=== PATIENT | female | born 1955 | race Caucasian/White ===

== ENCOUNTER 2017-02-04 19:12 | Inpatient (IN) ==
[2017-02-04 19:48] LABS: Basophils % 0.3 % (0.0-0.8); Hematocrit 33.9 VOL% (35.7-47.0); Hemoglobin 10.8 GM/DL (12.0-16.0); Immature Granulocytes % 0.4 %; Immature Granulocytes Absolute 0.05 #; Lymphocytes # 1.4 10*3/uL (1.4-4.0); Lymphocytes % 11.5 % (21.3-54.2); Mean Corpuscular HGB Conc 31.9 GM/DL (32-36); Mean Corpuscular Hemoglobin 29 PG (27-34); Mean Corpuscular Volume 89.7 FL (87-102); Mean Platelet Volume 10.2 FL (9.6-12.0); Monocytes # 0.7 10*3/uL (0.11-0.8); Monocytes % 5.3 % (1.7-12.7); Neutrophils # 10.1 10*3/uL (1.4-7.4); Neutrophils % 82.5 % (38.7-73.9); Platelet Count 185 T/CUMM (130-400); Red Blood Count 3.78 MC/CUMM (3.8-5.5); Red Cell Distribution Width 14.6 % (9.3-17.3); White Blood Count 12.3 T/CUMM (4-12)
[2017-02-04 19:56] LABS: Apearance,Urine CLOUDY (Clear); Bacteria,Urine Occasional /HPF (Few); Bilirubin,Urine Negative (Negative); Blood, Urine Small mg/dL (Negative); Glucose,Urine (UA) Negative (Negative); Ketones,Urine Negative (Negative); Nitrite,Urine Negative (Negative); Protein,Urine 100 MG/DL; RBC,Urine 2 /HPF (0-4); Squamous Epithelial Cell,Urine Occasional /HPF (0-10); Urine Color Yellow (Yellow); Urine Specific Gravity 1.014 (1.001-1.035); WBC,Urine 22 /HPF (0-6)
[2017-02-04 20:12] LABS: Albumin 3.3 G/DL (3.4-5.0); Bilirubin,Total 0.5 MG/DL (0.2-1.0); Calcium 7.8 MG/DL (8.5-10.1); Potassium 4.5 MMOL/L (3.5-5.1); Total Protein 7.8 G/DL (6.4-8.3)
[2017-02-04] MEDS ORDERED: PIPERACILLIN/TAZOBACTAM 3,375 MG in SODIUM CHLORIDE 0.9% 100 ML IV STA (20:21)
[2017-02-04] MEDS ORDERED: CEFTAROLINE 600 MG in SODIUM CHLORIDE 0.9% 100 ML IV STA (20:26)
[2017-02-04] MEDS ORDERED: VANCOMYCIN (NICU) 1,000 MG in SYRINGE 1 EACH IV SCH (20:30)
--- NOTE | 2017-02-04 20:38 | XRay Report ---
XR chest 1V portable Indication: Shortness of breath and fever. Chest one view: Comparison 11/10/2016. Although pulmonary markings are accentuated by morbid obesity, there is pulmonary vascular congestion centrally with diffuse interstitial prominence throughout. No focal infiltrate is definitively seen. Cardiomegaly is present. Impression: CHF decompensation. PROCEDURE INTERPRETED AT [facility] DEPARTMENT OF RADIOLOGY Final Report Signed by: Omkar Hardin M.D.
--- NOTE | 2017-02-04 20:38 | XRay Report ---
XR abdomen complete w decub Indication: Abdominal pain and fever. Abdomen 3 views: Morbid obesity noted. No small bowel dilatation. Gas is present throughout colon with some scattered areas of stool, not dilated. No evidence of free air. Impression: Unremarkable bowel gas pattern. PROCEDURE INTERPRETED AT [facility] DEPARTMENT OF RADIOLOGY Final Report Signed by: Omkar Hardin M.D.
[2017-02-04] MEDS ORDERED: CEFTAROLINE 600 MG VIAL IV ONE (20:51)
[2017-02-04] MEDS ORDERED: ONDANSETRON 4 MG/2 ML VIAL IV PRN (20:59)
[2017-02-04] MEDS ORDERED: ACETAMINOPHEN 325 MG TABLET PO PRN (20:59)
[2017-02-04 21:01] LABS: Troponin I Only < 0.015 NG/ML (0.00-0.045)
--- NOTE | 2017-02-04 21:02 | Emergency Department Note ---
I, Nancy Schmitz, am scribing for, and in the presence of, Juwan Andrews MD 20:07. IJuliana Robert, MD, personally performed the services described in this documentation, ascribed by Nancy Schmitz in my presence, and it is both accurate and complete . Arrival - Arrival Chief Complaint: Urogenital - Female Stated Complaint: chills, uti ED Nursing Triage Note: pt started having chills last night then got hot, states that she thinks she has a uti, denies urinary problems, states that she pees a lot and often, denies burning. Mode of Arrival: Stretcher Source: Patient, Family (daughter) Time Seen by Provider: 02/04/17 19:39 - History of Present Illness HPI Narrative: Pt is a 61 y/o female who came to ED by EMS with c/o generalized weakness with hot and cold chills and fever and upper abdomen pain that started Thursday night. Pt has associated sxs of WALTERS, sore throat, mild earaches, frequency, urgency, loose stool considered diarrhea, and rhinorrhea, but denies SOB, dysuria, hematuria. Her fever in ED is 101. Pt uses walker to get around. Daughter notes cellulitis flare up again in bilateral lower extremities with weeping wounds due to pt non compliant with regime. PMHx of DM, lymphedema, kidney issues in Stage IV renal failure, under supervision of Dr. Davis but resolved 2 months ago and no dialysis; chronic edema to bilateral legs with weeping wounds under supervision of Dr. Jackson. Pt's PCP is Dr. Haque. Pt's BP is usually nml 130/80, but in ED is 139/40. Onset (ago): day(s) Consistency: constant Severity: moderate Severity scale (1-10): 5 Quality: aching Allergies/Adverse Reactions: Allergies Allergy/AdvReac Type Severity Reaction Status Date / Time No Known Allergies Allergy Unverified 02/04/17 19:14 Home Medications: Home Medications Medication Instructions Recorded Confirmed Type FLUoxetine [PROzac] 40 mg PO DAILY 06/12/16 10/27/16 History Tolterodine Tartrate [Tolterodine 4 mg PO DAILY 06/12/16 10/27/16 History LA] Skin Healing Oint (Aquaphor) 1 applic TOP PRN PRN #0 ointment 11/07/16 03/13/17 Rx [Aquaphor] Acetaminophen Tab [Tylenol Tab] 650 mg PO Q4H PRN #0 tablet 11/12/16 Rx Gabapentin Cap/Tab [Neurontin 200 mg PO DAILY #30 capsule 11/12/16 Rx Cap/Tab] HYDROcodone/ACETAMIN 5-325 [[place] 1 tablet PO Q4H PRN #20 tablet 11/12/16 Rx 5-325] Insulin Regular [HumuLIN R] See Protocol SUBCUT ACHS unit 11/12/16 Rx Levofloxacin Tab [Levaquin Tab] 500 mg PO Q48H #7 tablet 11/12/16 Rx Silver Sulfadiazine 1% Cream 1 applic TOP DAILY applic 11/12/16 Rx [Silvadene] Sodium Hypochlorite 0.25% Irr 1 applic TOP DAILY applic 11/12/16 Rx [Dakins 1/2 Strength 0.25% Soln] glipiZIDE [Glucotrol] 5 mg PO DAILY #0 11/12/16 10/27/16 Rx Review of System - Review of System 12 point system: reviewed and no additional remarkable complaints except as stated - Review of System Constitutional: Present: chills (hot and cold), fever Head/Ears/Nose/Throat: Present: nasal drainage. Absent: earache, sore throat Respiratory: Absent: cough, respiratory distress Cardiovascular: Absent: chest pain Gastrointestinal: Present: diarrhea (mild; soft). Absent: abdominal pain, nausea, vomiting Genitourinary female: Present: frequency, urgency. Absent: dysuria, hematuria Musculoskeletal: Present: leg pain (chronic bilateral swelling and weeping wounds). Absent: back pain, lower back pain, upper back pain Skin: Absent: rash Neurological: Present: headache Medical,Surgical,& Family Hx - Medical History Cardio: History of: CHF, CAD, Hypertension, PVD, Cardiovascular Problems ( lymphadema) No history of: [place] Psychological: History of: Anxiety Disorders No history of: Previous Suicide Attempt HEENT: Comment Only: Eye Problem (wears glasses) Endocrine: History of: Diabetes Mellitus (NIDDM), Dyslipidemia No history of: Diabetes Mellitus (IDDM) Respiratory: History of: Bronchitis, COPD, Pulmonary Hypertension, Pneumonia Genitourinary: History of: Recurring Urinary Tract Infections Hematology: History of: Anemia - Surgical History Reproductive Surgeries: Surgical HX of;: Section - Family History Family History: Reports;: Family Cancer, Family Diabetes, Family Heart Disease, Family Hypertension, Family Stroke - Social History Smoking Status: Never smoker Frequency of Alcohol Use: None Type of Drug Use: None Marital Status: Single Functional capacity: independent ambulation Exam Vital Signs: Vital Signs Temperature 101 F H 02/04/17 19:12 Pulse Rate 62 02/04/17 19:12 Respiratory Rate 22 02/04/17 19:12 Blood Pressure 113/40 02/04/17 19:12 O2 Sat by Pulse Oximetry 98 02/04/17 19:12 - General General appearance: alert, in no apparent distress, obese (morbidly) - Head Head exam: Present: atraumatic, normocephalic - Eye Eye exam: Present: PERRL, EOMI - ENT ENT exam: Present: normal exam, normal oropharynx (mild drainage), mucous membranes moist, TM's normal bilaterally, normal external ear exam. Absent: mucous membranes dry - Neck Neck exam: Present: full ROM. Absent: tenderness - Chest Chest inspection: Present: symmetric chest wall rise. Absent: tenderness - Respiratory Respiratory exam: Present: normal lung sounds bilaterally. Absent: accessory muscle use, respiratory distress, wheezes - Cardiovascular Cardiovascular exam: Present: normal heart sounds, murmur, +S2. Absent: tachycardia - Abdominal Exam Abdominal exam: Present: soft, tenderness (mild diffusely). Absent: distention , guarding, rebound - Extremities Exam Extremities exam: Present: tenderness (lymphedema bilaterally with erythema induration of two 5cm decubitus; superficial thickness on right ankle with sluffiness of skin on medial aspect to right calf). Absent: full ROM (Limited ROM due to weight and edema) - Back Exam Back exam: Present: full ROM. Absent: tenderness - Neurological Exam Neurological exam: Present: alert, oriented X3, CN II-XII intact. Absent: motor sensory deficit - Psychiatric Psychiatric exam: Present: normal affect, normal mood - Skin Skin exam: Present: warm Course Course Narrative: Medical decision making: Patient with SIRS criteria plus source of infection with positive UA, and likely cellulitis bilateral extremities, with history of urosepsis. Discussed case with Dr. Morocho of internal medicine who ordered antibiotics, fluids started. Dr. Morocho is coming to ER for evaluation - Reevaluation(s) Reevaluation #1: Dr. Morocho decided to admit patient for IV antibiotics and monitoring Results - Labs CBC & BMP: 02/04/17 19:37 02/04/17 19:37 Lab Results: I have reviewed the patients labs Labs: Laboratory Tests 02/04/17 02/04/17 19:32 19:37 WBC 12.3 H RBC 3.78 L Hgb 10.8 L Hct 33.9 L MCHC 31.9 L Neut % (Auto) 82.5 H Lymph % (Auto) 11.5 L Neut # (Auto) 10.1 H Urine Color Yellow Urine Appearance Cloudy Urine pH 5.0 Ur Specific [place] 1.014 Urine Protein 100 Urine Blood Small Urine Urobilinogen 2.0 H Urine Leukocytes Moderate H Urine RBC 2 Urine WBC 22 Urine WBC Clumps Few Ur Squamous Epith Cells Occasional Urine Bacteria Occasional Laboratory Tests 02/04/17 19:37 VBG pH 7.344 Laboratory Tests 02/04/17 19:37 BUN 29 H Creatinine 1.70 H Glucose 111 H Calcium 7.8 L ALT 10 L Albumin 3.3 L Globulin 4.5 H Albumin/Globulin Ratio 0.7 L Laboratory Tests 02/04/17 19:37 Lactic Acid 2.2 H - Diagnostic Findings Procedure: Chest x-ray: report reviewed by me (CHF decompensation.), X-ray: report reviewed by me (abdomen complete with decub: unremarkable bowel gas pattern.) Disposition Clinical Impression: Sepsis associated hypotension, Cellulitis, Decubitus skin ulcer Case discussed with: patient, patient's family, patient's physician Disposition: Still a Patient Condition: Critical Time of Disposition: 20:30
[2017-02-04] MEDS ORDERED: DEXTROSE 50% 25 GM/50 ML VIAL IV PRN (21:08)
[2017-02-04] MEDS ORDERED: GLUCAGON 1 MG VIAL IM PRN (21:08)
[2017-02-04] MEDS ORDERED: FUROSEMIDE 40 MG/4 ML VIAL IV ONE (21:09)
--- NOTE | 2017-02-04 21:13 | Hospitalist History & Physical ---
Assessment and Plan (1) Sepsis Status: Acute Current Visit: Yes (2) UTI (urinary tract infection) Status: Acute Current Visit: Yes (3) Diabetes Status: Chronic Current Visit: No Qualifiers: Diabetes mellitus type: type 2 Chronic kidney disease stage: stage 5, not on chronic dialysis (4) Hypertension Status: Chronic Current Visit: No (5) Lymphedema of both lower extremities Status: Chronic Current Visit: No (6) Morbid obesity Status: Chronic Current Visit: No (7) Non-healing wound of lower extremity Status: Chronic Current Visit: No (8) Type 2 diabetes mellitus Status: Chronic Assessment and plan: Our plan for this patient admitted is to admit her to our service. 40 started on Teflaro which is good broad coverage antibiotics for her skin. Going to culture her urine. By definition she does meet the requirements for severe sepsis. She has a 12.3 white count lactic acid level of 2.3 and a fever of 101. We are going to repeat the lack acid. Patient cannot be given a fluid bolus secondary to cardiac decompensation on chest x-ray. Going to give her some Lasix. Per family's request we are consulting Dr. Fernandes. He has great experience with the lymphedema AND her normal doctor which Dr. Renetta Parmar does not come to our facility. Continue home meds as appropriate once they are confirmed Current Visit: No Qualifiers: Diabetes mellitus complication status: with skin complications Diabetes mellitus complication detail: with other skin complication Diabetes mellitus moth exterminator insulin use: without moth exterminator use Qualified Code(s): E11.628 - Type 2 diabetes mellitus with other skin complications History of Present Illness Chief complaint: Fever History of present illness: Ms. Dwyer is a 61 year old female with past medical history of lymphedema chronic kidney disease diabetes and chronic lower extremity wounds who presents to our ER [facility]. Patient's been admitted several times in the past and she has been on our service several times. Patient's daughter reports that she started spiking a fever 2 days ago. Patient says that she was freezing at the time. Seem like the redness to return to her lower extremities. Patient has chronic lymphedema and according to the daughter patient usually is admitted to the hospital about every 3 months. I was contacted from the emergency room for admission. Home Medications Medication Instructions Recorded Confirmed Type FLUoxetine [PROzac] 40 mg PO DAILY 06/12/16 10/27/16 History Tolterodine Tartrate [Tolterodine 4 mg PO DAILY 06/12/16 10/27/16 History LA] Skin Healing Oint (Aquaphor) 1 applic TOP PRN PRN #0 ointment 06/23/16 10/27/16 Rx [Aquaphor] Acetaminophen Tab [Tylenol Tab] 650 mg PO Q4H PRN #0 tablet 11/12/16 Rx Gabapentin Cap/Tab [Neurontin 200 mg PO DAILY #30 capsule 11/12/16 Rx Cap/Tab] HYDROcodone/ACETAMIN 5-325 [[place] 1 tablet PO Q4H PRN #20 tablet 11/12/16 Rx 5-325] Insulin Regular [HumuLIN R] See Protocol SUBCUT ACHS unit 11/12/16 Rx Levofloxacin Tab [Levaquin Tab] 500 mg PO Q48H #7 tablet 11/12/16 Rx Silver Sulfadiazine 1% Cream 1 applic TOP DAILY applic 11/12/16 Rx [Silvadene] Sodium Hypochlorite 0.25% Irr 1 applic TOP DAILY applic 11/12/16 Rx [Dakins 1/2 Strength 0.25% Soln] glipiZIDE [Glucotrol] 5 mg PO DAILY #0 11/12/16 10/27/16 Rx Allergies Allergy/AdvReac Type Severity Reaction Status Date / Time No Known Allergies Allergy Unverified 02/04/17 19:14 Medical,Surgical,& Family Hx - Medical History Cardio: History of: CHF, CAD, Hypertension, PVD, Cardiovascular Problems ( lymphadema) No history of: [place] Psychological: History of: Anxiety Disorders No history of: Previous Suicide Attempt HEENT: Comment Only: Eye Problem (wears glasses) Endocrine: History of: Diabetes Mellitus (NIDDM), Dyslipidemia No history of: Diabetes Mellitus (IDDM) Respiratory: History of: Bronchitis, COPD, Pulmonary Hypertension, Pneumonia Genitourinary: History of: Recurring Urinary Tract Infections Hematology: History of: Anemia - Surgical History Reproductive Surgeries: Surgical HX of;: Section - Family History Family History: Reports;: Family Cancer, Family Diabetes, Family Heart Disease, Family Hypertension, Family Stroke - Social History Smoking Status: Never smoker Frequency of Alcohol Use: None Type of Drug Use: None 12 point system: reviewed and no additional remarkable complaints except as stated Exam - Constitutional Vitals: Period Temp Pulse Resp BP Sys/Miller Pulse Ox Last 24 Hr 101 F-101 F 62-62 22-22 113-113/40-40 98 General appearance: no acute distress, morbidly obese - Head Head exam: Present: normal inspection - Eye Eye exam: Present: EOMI Pupils: Present: KATIANA - ENT ENT exam: Present: normal exam - Neck Neck exam: Present: normal inspection - Respiratory Respiratory exam: Present: clear to auscultation bilaterally - Cardiovascular Cardiovascular exam: Present: regular rate and rhythm - GI/Abdominal GI/Abdominal exam: Present: normal bowel sounds, tenderness (Mild) - Extremities Exam Extremities exam: Present: other (Significant lymphedema in lower extremities. She has erythema and duration. There are 2 decubiti noted.) - Psychiatric Psychiatric exam: Present: depressed - Skin Skin exam: Present: erythema Results - Labs CBC & BMP: 02/04/17 19:37 02/04/17 19:37 Quality Measures - Stroke Onset of Symptoms Date: 02/03/17
[2017-02-04] MEDS: ENOXAPARIN 40 MG/0.4 ML SYRINGE SUBCUT SCH (23:28)
[2017-02-05 06:27] LABS: Basophils % 0.3 % (0.0-0.8); Hematocrit 29.3 VOL% (35.7-47.0); Hemoglobin 9.3 GM/DL (12.0-16.0); Immature Granulocytes % 0.5 %; Immature Granulocytes Absolute 0.05 #; Lymphocytes # 1.4 10*3/uL (1.4-4.0); Lymphocytes % 14.8 % (21.3-54.2); Mean Corpuscular HGB Conc 31.7 GM/DL (32-36); Mean Corpuscular Hemoglobin 28 PG (27-34); Mean Corpuscular Volume 88.3 FL (87-102); Mean Platelet Volume 10.6 FL (9.6-12.0); Monocytes # 0.5 10*3/uL (0.11-0.8); Monocytes % 5.3 % (1.7-12.7); Neutrophils # 7.5 10*3/uL (1.4-7.4); Neutrophils % 79.1 % (38.7-73.9); Platelet Count 156 T/CUMM (130-400); Red Blood Count 3.32 MC/CUMM (3.8-5.5); Red Cell Distribution Width 14.8 % (9.3-17.3); White Blood Count 9.5 T/CUMM (4-12)
[2017-02-05 07:04] LABS: Calcium 7.5 MG/DL (8.5-10.1); Osmolality,Calculated 282.7 MOS/KG (273-304)
[2017-02-05] MEDS: PANTOPRAZOLE 40 MG TABLET PO SCH (09:09)
[2017-02-05] MEDS: FUROSEMIDE 40 MG/4 ML VIAL IV SCH ×2 (09:09→16:23)
[2017-02-05] MEDS: CEFTAROLINE 600 MG in SODIUM CHLORIDE 0.9% 100 ML IV SCH ×2 (09:09→21:09)
[2017-02-05] MEDS: INSULIN REGULAR 100 UNIT/ML SUBCUT SCH ×4 (10:11→21:09)
--- NOTE | 2017-02-05 11:20 | Physician Query Form ---
CLICK EDIT DOCUMENT TO SELECT QUERY ANSWER --> OK --> SIGN Akua Ng RN Clinical [employer] Sprink[employer] Installer W) [phone] (f) [phone] [email or web address] PROVIDERS: Make your selection(s) from the choices in EACH section by typing an "x" and enter comments in the comment section. Please use your independent medical judgment in providing your response. This request does not imply that any particular answer is desired or expected. CLINICAL INDICATORS: (Providers should not edit this section) Based on documentation of "history of CHF", [id number], Echo done 07/31/16 showed EF of 50-55%. CXR showed CHF decompensation. Pt. treated with IV Lasix. Please provide further specificity regarding CHF. ACUITY: ( ) Acute ( ) Chronic ( x) Acute on Chronic ( ) Clinicallly unable to determine TYPE: ( ) Systolic (HFrEF - heart failure with reduced systolic function/EF) ( x) Diastolic (HFpEF - heart failure with preserved systolic function/EF) ( ) Combined Systolic/Diastolic ( ) Other, please specify: ( ) Clinically unable to determine ( ) The patient does NOT have CHF COMMENTS: PLEASE ALSO DOCUMENT RESPONSE IN PROGRESS NOTES AND/OR DISCHARGE SUMMARY Use of terms such as suspected, likely, or probable (associated with a specific diagnosis that is being evaluated, monitored, or treated as if it exists) are acceptable and can be restated in the discharge summary if not ruled out. MTDD
--- NOTE | 2017-02-05 11:33 | General Surgery Consult Note ---
Assessment and Plan (1) Decubitus skin ulcer Status: Acute Assessment and plan: Patient with bilateral pressure ulcers from where the daughter reports the patient props her legs when sitting in a chair at home. There was exudative soft which was debrided with a curette at bedside left lower leg 8 x 6 cm; right lower leg 6.4 cm. Patient tolerated well. The patient is on IV antibiotics with which we are in agreement with the associated cellulitis. Moisture control and removal of pressure needs to be achieved especially of the left lower extremity to prevent further breakdown this was reviewed with the wound care nurse. Apparently, the patient has many resources at home including hospital bed , active family, and home health services. At this time there are no indications for formal surgical debridement. Continue local wound care. Will follow along. Current Visit: Yes Qualifiers: Pressure ulcer location: calf Pressure ulcer stage: stage 2 (2) Cellulitis of left lower extremity Status: Acute Current Visit: No History of Present Illness Chief complaint: Bilateral leg wounds History of present illness: Ms. Dwyer is a 61 year old female with past medical history of diabetes mellitus , peripheral vascular disease, and lymphedema with nonhealing wounds with multiple debridements who presents back to the facility with reports of spiking a temperature 2 days. The patient assisted care of the patient and report they have continue to follow with Dr. Jackson in the wound care clinic with home health services. The daughter performs the daily wound care. There is some mild increase in surrounding erythema but no significant drainage from the wounds. There are 2 large wounds on the posterior lateral lower legs with satellite lesions noted of the left lower leg. Patient is currently being treated with Teflaro; evidence of urinary tract infection also present on UA with gram-negative rods and Gram stain and preliminary culture. Home Medications Medication Instructions Recorded Confirmed Type FLUoxetine [PROzac] 40 mg PO DAILY 06/12/16 02/04/17 History Tolterodine Tartrate [Tolterodine 4 mg PO DAILY 06/12/16 02/04/17 History LA] HYDROcodone/ACETAMIN 5-325 [[place] 1 tablet PO Q4H PRN #20 tablet 11/12/16 Rx 5-325] Allopurinol 2 tablet PO DAILY 02/04/17 02/04/17 History Furosemide Tab [Lasix Tab] 1 tablet PO BID 02/04/17 02/04/17 History Gabapentin Cap/Tab [Neurontin 600 mg PO DAILY 02/04/17 02/04/17 History Cap/Tab] Levothyroxine Tab [Synthroid Tab] 1 tablet PO DAILY 02/04/17 02/04/17 History Pravastatin [Pravachol] 10 mg PO DAILY 02/04/17 02/04/17 History glipiZIDE [Glucotrol] 5 mg PO BID 02/04/17 02/04/17 History Allergies Allergy/AdvReac Type Severity Reaction Status Date / Time No Known Allergies Allergy Unverified 02/04/17 19:14 Medical,Surgical,& Family Hx - Medical History Cardio: History of: CHF, CAD, Hypertension, PVD, Cardiovascular Problems ( lymphadema) Psychological: History of: Anxiety Disorders HEENT: Comment Only: Eye Problem (wears glasses) Endocrine: History of: Diabetes Mellitus (NIDDM), Dyslipidemia Respiratory: History of: Bronchitis, COPD, Pulmonary Hypertension, Pneumonia Renal: History of: Renal Problems Genitourinary: History of: Recurring Urinary Tract Infections Hematology: History of: Anemia - Surgical History Reproductive Surgeries: Surgical HX of;: Section Additional Surgical History: Multiple debridements of bilateral lower legs - Family History Family History: Reports;: Family Cancer, Family Diabetes, Family Heart Disease, Family Hypertension, Family Stroke - Social History Smoking Status: Never smoker Frequency of Alcohol Use: None Type of Drug Use: None Lives With:: Children - Constitutional Constitutional: Present: as per HPI - Cardiovascular Cardiovascular: Absent: chest pain at rest, chest pain with activity - Respiratory Respiratory: Absent: cough, wheezing - Gastrointestinal Gastrointestinal: Absent: abdominal pain, nausea, vomiting - Musculoskeletal Musculoskeletal: Absent: arthralgias Exam - Constitutional Vitals: Period Temp Pulse Resp BP Sys/Miller Pulse Ox Last 24 Hr 97 F-102.2 F 62-80 18-22 113-124/40-60 92-98 General appearance: no acute distress, morbidly obese - Head Head exam: Present: normocephalic - Eye Eye exam: Absent: conjunctival injection, scleral icterus - Extremities Exam Extremities exam: Present: other (Severe lymphedema bilateral lower extremities. Left lower extremity with a wound of the posterior lateral leg approximately 8 cm x 5 cm with exudative slough present edges are clean. Mild surrounding erythema and denuding of tissue with evidence of maceration. 2 small satellite lesions approximately 1 cm in diameter with the healthy tissue bed present lower leg as well. The right lower extremity has a similar lesion approximately 6 cm x 4 cm with exudate; edges are clean without necrosis. No areas of induration or fluctuance are noted. There is surrounding erythema of the lower leg.) Quality Measures - Stroke Onset of Symptoms Date: 02/03/17 Results - Labs CBC & BMP: 02/05/17 05:38 02/05/17 05:38
--- NOTE | 2017-02-05 16:14 | Hospitalist Progress Note ---
Assessment and Plan (1) Sepsis Status: Resolved Assessment and plan: Secondary to UTI Current Visit: Yes (2) UTI (urinary tract infection) Status: Acute Assessment and plan: Continue Teflaro Current Visit: Yes (3) Cellulitis Status: Acute Assessment and plan: Continue Teflaro Current Visit: Yes (4) Decubitus skin ulcer Status: Acute Assessment and plan: Surgery evaluated, no surgical indications Current Visit: Yes Qualifiers: Pressure ulcer location: calf Pressure ulcer stage: stage 2 Hospitalist: Subjective Interval history: No acute events overnight. Patient reports that she feels better today. Denies abdominal pain, cough or sob. Exam - Constitutional Vitals: Period Temp Pulse Resp BP Sys/Miller Pulse Ox Last 24 Hr 97 F-102.2 F 62-80 18-22 113-142/40-65 92-98 General appearance: morbidly obese - Head Head exam: Present: normocephalic, atraumatic - Eye Eye exam: Present: EOMI Pupils: Present: KATIANA - ENT ENT exam: Present: normal exam - Neck Neck exam: Present: normal inspection - Respiratory Respiratory exam: Present: clear to auscultation bilaterally. Absent: wheezes - Cardiovascular Cardiovascular exam: Present: regular rate and rhythm - GI/Abdominal GI/Abdominal exam: Present: normal bowel sounds, soft. Absent: tenderness, rebound - Extremities Exam Extremities exam: Present: edema - Back Exam Back exam: Present: normal inspection - Neurological Exam Neurological exam: Present: alert, oriented X3 - Psychiatric Psychiatric exam: Present: normal affect, normal mood - Skin Skin exam: Present: warm, intact Results - Labs CBC & BMP: 02/05/17 05:38 02/05/17 05:38 Quality Measures - Stroke Onset of Symptoms Date: 02/03/17
[2017-02-05] MEDS: FLUoxetine 20 MG CAPSULE PO SCH (16:27)
[2017-02-05] MEDS: COLLAGENASE OINT 30 GM TUBE TOP SCH (16:31)
[2017-02-05] MEDS: DESITIN 4OZ/NYSTATIN 15 GRAM MIXTURE PASTE TOP SCH (21:09)
[2017-02-05] MEDS: ENOXAPARIN 40 MG/0.4 ML SYRINGE SUBCUT SCH (21:10)
[2017-02-06 05:30] LABS: Basophils % 0.4 % (0.0-0.8); Hematocrit 29.3 VOL% (35.7-47.0); Hemoglobin 9.5 GM/DL (12.0-16.0); Immature Granulocytes % 0.2 %; Immature Granulocytes Absolute 0.02 #; Lymphocytes # 1.3 10*3/uL (1.4-4.0); Lymphocytes % 16.5 % (21.3-54.2); Mean Corpuscular HGB Conc 32.4 GM/DL (32-36); Mean Corpuscular Hemoglobin 29 PG (27-34); Mean Corpuscular Volume 88.8 FL (87-102); Mean Platelet Volume 10.9 FL (9.6-12.0); Monocytes # 0.5 10*3/uL (0.11-0.8); Monocytes % 6.7 % (1.7-12.7); Neutrophils # 6.2 10*3/uL (1.4-7.4); Neutrophils % 76.2 % (38.7-73.9); Platelet Count 163 T/CUMM (130-400); Red Cell Distribution Width 14.6 % (9.3-17.3); White Blood Count 8.1 T/CUMM (4-12)
[2017-02-06 05:59] LABS: Calcium 8.3 MG/DL (8.5-10.1); Osmolality,Calculated 282.7 MOS/KG (273-304); Potassium 4.1 MMOL/L (3.5-5.1)
--- NOTE | 2017-02-06 07:25 | General Surgery Progress Note ---
Assessment and Plan (1) Decubitus skin ulcer Status: Acute Assessment and plan: These ulcers are clean and did not require surgical attention. Please call back with any further questions and continue current wound care Current Visit: Yes Qualifiers: Pressure ulcer location: calf Pressure ulcer stage: stage 2 Subjective Patient reports: Present: no new complaints, afebrile Exam - Constitutional Vitals: Period Temp Pulse Resp BP Sys/Miller Pulse Ox Last 24 Hr 97.5 F-99.5 F 67-74 18-20 105-142/50-65 92-98 General appearance: no acute distress, morbidly obese - Head Head exam: Present: normal inspection, normocephalic - Eye Eye exam: Present: EOMI Pupils: Present: KATIANA - ENT ENT exam: Present: normal exam Mouth exam: Present: normal external inspection, normal voice - Neck Neck exam: Present: normal inspection, trachea midline - Respiratory Respiratory exam: Present: clear to auscultation bilaterally. Absent: accessory muscle use, chest wall tenderness - Cardiovascular Cardiovascular exam: Present: RRR. Absent: systolic murmur, tachycardia - GI/Abdominal GI/Abdominal exam: Present: normal bowel sounds, soft. Absent: tenderness, rebound - Extremities Exam Extremities exam: Present: other - Expanded Lower extremity ulcers are clean Forearm wrist exam: Present: tenderness - Back Exam Back exam: Present: normal inspection - Neurological Exam Neurological exam: Present: alert, oriented X3 Speech: Present: normal - Skin Skin exam: Present: normal color, warm Results - Labs CBC & BMP: 02/06/17 04:45 02/06/17 04:45 Quality Measures - Stroke Onset of Symptoms Date: 02/03/17
[2017-02-06] MEDS: PANTOPRAZOLE 40 MG TABLET PO SCH (08:17)
[2017-02-06] MEDS: ALLOPURINOL 100 MG TABLET PO SCH (08:17)
[2017-02-06] MEDS: FLUoxetine 20 MG CAPSULE PO SCH (08:17)
[2017-02-06] MEDS: PRAVASTATIN 20 MG TABLET PO SCH (08:17)
[2017-02-06] MEDS: GABAPENTIN 600 MG TABLET PO SCH (08:18)
[2017-02-06] MEDS: FUROSEMIDE 40 MG/4 ML VIAL IV SCH ×2 (08:18→16:51)
[2017-02-06] MEDS: LEVOTHYROXINE 75 MCG TABLET PO SCH (08:18)
[2017-02-06] MEDS: CEFTAROLINE 400 MG in SODIUM CHLORIDE 0.9% 100 ML IV SCH ×2 (08:23→20:31)
[2017-02-06] MEDS: INSULIN REGULAR 100 UNIT/ML SUBCUT SCH ×4 (08:23→20:30)
[2017-02-06] MEDS: DESITIN 4OZ/NYSTATIN 15 GRAM MIXTURE PASTE TOP SCH ×2 (08:23→20:31)
[2017-02-06] MEDS: COLLAGENASE OINT 30 GM TUBE TOP SCH (08:23)
--- NOTE | 2017-02-06 15:37 | Hospitalist Progress Note ---
Assessment and Plan (1) Sepsis Status: Resolved Assessment and plan: Secondary to UTI Current Visit: Yes (2) UTI (urinary tract infection) Status: Acute Assessment and plan: Started Teflaro, continue today Current Visit: Yes (3) Cellulitis Status: Acute Assessment and plan: Continue Teflaro Current Visit: Yes (4) Decubitus skin ulcer Status: Acute Assessment and plan: Surgery evaluated, no surgical indications Current Visit: Yes Qualifiers: Pressure ulcer location: calf Pressure ulcer stage: stage 2 Hospitalist: Subjective Interval history: No acute events overnight. Patient feeling better. Possible discharge soon. Exam - Constitutional Vitals: Period Temp Pulse Resp BP Sys/Miller Pulse Ox Last 24 Hr 97.3 F-99.4 F 68-74 18-20 105-142/50-71 92-98 General appearance: morbidly obese - Head Head exam: Present: normocephalic, atraumatic - Eye Eye exam: Present: EOMI Pupils: Present: KATIANA - ENT ENT exam: Present: normal exam - Neck Neck exam: Present: normal inspection - Respiratory Respiratory exam: Present: clear to auscultation bilaterally. Absent: rhonchi, wheezes - Cardiovascular Cardiovascular exam: Present: regular rate and rhythm - GI/Abdominal GI/Abdominal exam: Present: normal bowel sounds, soft. Absent: tenderness, rebound - Extremities Exam Extremities exam: Present: other (BLE wrapped, c/d/i) - Back Exam Back exam: Present: normal inspection - Neurological Exam Neurological exam: Present: alert, oriented X3 - Psychiatric Psychiatric exam: Present: normal affect, normal mood - Skin Skin exam: Present: warm, intact Results - Labs CBC & BMP: 02/06/17 04:45 02/06/17 04:45 Quality Measures - Stroke Onset of Symptoms Date: 02/03/17
[2017-02-06] MEDS: ENOXAPARIN 40 MG/0.4 ML SYRINGE SUBCUT SCH (20:30)
[2017-02-07 02:55] LABS: Calcium 7.5 MG/DL (8.5-10.1); Osmolality,Calculated 287.4 MOS/KG (273-304)
[2017-02-07] MEDS: INSULIN REGULAR 100 UNIT/ML SUBCUT SCH (07:52)
[2017-02-07] MEDS: ALLOPURINOL 100 MG TABLET PO SCH (08:50)
[2017-02-07] MEDS: PRAVASTATIN 20 MG TABLET PO SCH (08:50)
[2017-02-07] MEDS: GABAPENTIN 600 MG TABLET PO SCH (08:50)
[2017-02-07] MEDS: FLUoxetine 20 MG CAPSULE PO SCH (08:50)
[2017-02-07] MEDS: PANTOPRAZOLE 40 MG TABLET PO SCH (08:50)
[2017-02-07] MEDS: LEVOTHYROXINE 75 MCG TABLET PO SCH (08:50)
[2017-02-07 09:00] VITALS: BP 128/53
[2017-02-07] MEDS: DESITIN 4OZ/NYSTATIN 15 GRAM MIXTURE PASTE TOP SCH (09:06)
[2017-02-07] MEDS: COLLAGENASE OINT 30 GM TUBE TOP SCH (09:06)
[2017-02-07] MEDS: FUROSEMIDE 40 MG/4 ML VIAL IV SCH (09:30)
[2017-02-07] MEDS: CEFTAROLINE 400 MG in SODIUM CHLORIDE 0.9% 100 ML IV SCH (09:30)
--- NOTE | 2017-02-07 09:37 | Discharge Summary ---
<Martha Dennis - Last Filed: 02/07/17 09:27> Hospital Course - Hospital Course Hospital Course: This is a chronically ill 61-year-old female that presented to the ED at [facility] on February 04, 2017 via EMS for evaluation of generalized weakness, chills, fever, and abdominal pain. Patient has a very complex medical history significant for: Diabetes mellitus, lymphedema, chronic kidney disease stage IV, morbid obesity, anxiety disorder, bronchitis, dyslipidemia, chronic lower extremity wound ,chronic urinary tract infections, chronic obstructive pulmonary disease, pulmonary hypertension, and anemia. Patient has a surgical history significant for section. The patient reported the onset of symptoms 2 days prior to presentation. She reported headaches, sore throat, mild ear aches, urinary urgency and frequency, multiple loose stools, and rhinorrhea; however denied shortness of breath dysuria or hematuria. The patient was assessed at the time of ED presentation. She was found to be febrile with a temperature of 101.0. Labs were obtained; hematology report noted white blood cell count of 12.3, hemoglobin 10.8, hematocrit 33.9, and platelet count of 185. Chemistry panel reported sodium at 136, potassium 4.5, chloride 104, carbon dioxide 23, anion gap 13.5, BUN 29, creatinine 1.70, glucose 111, calculated osmolality 278.0, lactic acid 2.2, calcium 7.8, AST 9, ALT 18, alkaline phosphatase 83, lactate dehydrogenase 193, and total protein is 7.8. Cardiac enzymes were obtained which reported a troponin at less than 0.015, and total creatinine kinase at 32. BNP was noted at 487. Urinalysis revealed a moderate amount of leukocytes. Chest x-ray was significant for congestive heart failure decompensation. Abdominal x-ray was significant for unremarkable bowel gas pattern. The patient was subsequently admitted to the hospitalist services for continuation of care and treatment of urinary tract infection. Delvalle cultures were obtained and empiric antibiotics were initiated. Due to the severity of the lower extremity wounds, a surgical consult was requested. Upon evaluation, surgery determined that there were no obvious clinical indications for a formal surgical debridement at this time. They suggested that the patient continue to follow-up with local wound care in the outpatient wound care clinic as directed. Her urine culture grew E.coli. The the patient's condition has greatly improved since admission. Her vital signs are stable and she is afebrile. She has not experienced any significant overnight events. She has now reached maximal benefit of inpatient stay and will be discharged home. Discharge Plan - Discharge Data Disposition: Disch To Home/Self Care - Discharge Medications New cephALEXin [Keflex] 500 mg PO Q12HR #10 capsule Continue Tolterodine Tartrate [Tolterodine LA] 4 mg PO DAILY FLUoxetine [PROzac] 40 mg PO DAILY Levothyroxine Tab [Synthroid Tab] 75 mcg PO DAILY Pravastatin [Pravachol] 10 mg PO DAILY Gabapentin Cap/Tab [Neurontin Cap/Tab] 600 mg PO DAILY Furosemide Tab [Lasix Tab] 1 tablet PO BID HYDROcodone/ACETAMIN 5-325 [[place] 5-325] 1 tablet PO Q4H PRN #20 tablet PRN Reason: Pain Moderate (4-7) Allopurinol 200 mg PO DAILY glipiZIDE [Glucotrol] 5 mg PO BID - Follow Up or Referral - Forms/Instructions Exam - Constitutional Vitals: Period Temp Pulse Resp BP Sys/Miller Pulse Ox Last 24 Hr 96.7 F-98.7 F 61-96 18-20 110-155/44-71 92-99 Discharge Results Procedures and tests throughout hospitalization: Pending Orders 02/04/17 19:37 Blood Culture Stat Labs on day of discharge: Labs from last 24 hours 02/07/17 02/07/17 02/06/17 07:23 01:42 19:56 Sodium 140 Potassium 4.0 Chloride 106 Carbon Dioxide 27 Anion Gap 11.0 BUN 35 H Creatinine 1.90 H GFR Calculation 45 BUN/Creatinine Ratio 18.00 Glucose 122 H POC Glucose 122 H 185 H Calculated Osmolality 287.4 Calcium 7.5 L Magnesium 2.0 02/06/17 02/06/17 15:49 11:19 Sodium Potassium Chloride Carbon Dioxide Anion Gap BUN Creatinine GFR Calculation BUN/Creatinine Ratio Glucose POC Glucose 153 H 163 H Calculated Osmolality Calcium Magnesium Preliminary micro results at discharge 02/04/17 19:37 Blood Culture - Preliminary Blood No growth at 1 day 02/04/17 19:37 Blood Culture - Preliminary Blood No growth at 1 day DS: Provider Date of admission: 02/04/17 20:27 Primary care physician: . No PCP Attending physician on admission: Omkar Upton MD Consults: 02/04/17 20:59 Consult to Physician [CONS] Routine Comment: Consulting Provider: Norberto Hsu Person Notified: KEVIN Date Notified: 02/05/17 Time Notified: 09:29 02/04/17 21:02 Consult to Wound Care - [place] [CONS] Routine Reason for Wound Care: Wound Care Management 02/05/17 19:08 PT [Consult to Physical Therapy] [CONS] Routine Reason for Physical Therapy: Ambulation Discharging clinician: Martha Dennis CNP <Quincy Sanon - Last Filed: 02/07/17 10:23> Hospital Course - Time spent with patient Time with patient DS: Greater than 30 minutes (35) Diagnosis - Discharge Diagnosis (1) Sepsis Status: Resolved (2) UTI (urinary tract infection) Status: Resolved (3) Cellulitis Status: Resolved (4) Decubitus skin ulcer Status: Chronic Discharge Plan - Discharge Data Condition at Discharge: Stable Discharge Diet: diabetic diet Activity: increase activity as tolerated Hygiene: no restrictions Weight Bearing at Discharge: weight bear as tolerated Contact your physician if you experience:: fever over 101, Shortness of breath Exam - Constitutional General appearance: morbidly obese - Head Head exam: Present: normocephalic, atraumatic - Eye Eye exam: Present: EOMI Pupils: Present: KATIANA - ENT ENT exam: Present: normal exam - Neck Neck exam: Present: normal inspection - Respiratory Respiratory exam: Present: clear to auscultation bilaterally. Absent: rhonchi, wheezes - Cardiovascular Cardiovascular exam: Present: regular rate and rhythm - GI/Abdominal GI/Abdominal exam: Present: normal bowel sounds, soft. Absent: tenderness, rebound - Extremities Exam Extremities exam: Present: edema - Back Exam Back exam: Present: normal inspection - Neurological Exam Neurological exam: Present: alert, oriented X3 - Psychiatric Psychiatric exam: Present: normal affect, normal mood - Skin Skin exam: Present: warm, intact
== END 2017-02-07 12:31 | disposition home or self-care (01) | DRG 871 ==
LOC: EDBD → EDUNIT# → N.ED 19:12 → N.EDINP 20:27 → SUATTDRO 20:27 → N.EDINP 21:37
PROVIDERS: ADMIT Internal Medicine; ATTEND Internal Medicine

== ENCOUNTER 2017-03-10 10:26 | Inpatient (IN) ==
--- NOTE | 2017-03-10 10:37 | Emergency Department Note ---
Arrival - Arrival Chief Complaint: Extremity Problem ED Nursing Triage Note: pt was in the hospital about a month ago for cellulitisis. pt states it got better but never went away. pt has had this on and off for about 5 years. pt has been taking bactrim that she had at the house without help Mode of Arrival: Stretcher Limitations: No Limitations Source: Patient, RN Notes Reviewed Time Seen by Provider: 03/10/17 10:30 - History of Present Illness HPI Narrative: Patient is a 61-year-old white female who presents today with chills fever and dysuria. The patient has a long history of recurrent UTIs and also recurrent cellulitis. Patient has chronically edematous lower extremities and skin breakdown overlying her lower extremities. Onset (ago): day(s) (1) Consistency: constant Severity: moderate Allergies/Adverse Reactions: Allergies Allergy/AdvReac Type Severity Reaction Status Date / Time No Known Allergies Allergy Unverified 02/04/17 19:14 Home Medications: Home Medications Medication Instructions Recorded Confirmed Type FLUoxetine [PROzac] 40 mg PO DAILY 06/12/16 03/10/17 History Tolterodine Tartrate [Tolterodine 4 mg PO DAILY 06/12/16 03/10/17 History LA] HYDROcodone/ACETAMIN 5-325 [[place] 1 tablet PO Q4H PRN #20 tablet 11/12/16 Rx 5-325] Allopurinol 200 mg PO DAILY 02/04/17 03/10/17 History Furosemide Tab [Lasix Tab] 1 tablet PO BID 02/04/17 03/10/17 History Gabapentin Cap/Tab [Neurontin 100 mg PO BID 02/04/17 03/10/17 History Cap/Tab] Levothyroxine Tab [Synthroid Tab] 75 mcg PO DAILY 02/04/17 03/10/17 History Pravastatin [Pravachol] 10 mg PO DAILY 02/04/17 03/10/17 History glipiZIDE [Glucotrol] 5 mg PO BID 02/04/17 03/10/17 History Review of System - Review of System 12 point system: reviewed and no additional remarkable complaints except as stated - Review of System Constitutional: Present: chills, fever Respiratory: Absent: cough Cardiovascular: Absent: chest pain Gastrointestinal: Absent: nausea, vomiting Medical,Surgical,& Family Hx - Medical History Cardio: History of: CHF, CAD, Hypertension, PVD, Cardiovascular Problems ( lymphadema) No history of: [place] Psychological: History of: Anxiety Disorders No history of: ADHD, Behavior Problems, Bipolar Disorder, Depression, Previous Suicide Attempt, Psychiatric/Substance Abuse Tx, Schizophrenia, Violent Behavior, Psychiatric Problems HEENT: Comment Only: Eye Problem (wears glasses) Endocrine: History of: Diabetes Mellitus (NIDDM), Dyslipidemia No history of: Diabetes Mellitus (IDDM) Respiratory: History of: Bronchitis, COPD, Pulmonary Hypertension, Pneumonia Renal: History of: Renal Problems Genitourinary: History of: Recurring Urinary Tract Infections Hematology: History of: Anemia - Surgical History Reproductive Surgeries: Surgical HX of;: Section - Family History Family History: Reports;: Family Cancer, Family Diabetes, Family Heart Disease, Family Hypertension, Family Stroke - Social History Smoking Status: Never smoker Frequency of Alcohol Use: None Type of Drug Use: None Exam Vital Signs: Vital Signs Temperature 100.8 F H 03/10/17 10:26 Pulse Rate 78 03/10/17 10:26 Respiratory Rate 22 03/10/17 10:26 Blood Pressure 103/65 03/10/17 10:26 O2 Sat by Pulse Oximetry 94 L 03/10/17 10:26 GENERAL: This is a morbidly obese white female, acutely ill-appearing in no apparent distress. VITAL SIGNS: Reviewed HEENT: Head is atraumatic and normocephalic. Pupils are equal round react to light. Extraocular movements are intact. Oropharynx is benign with moist mucous membranes. NECK: Neck is soft and supple without tenderness. There are no masses. There is no lymphadenopathy. LUNGS: Lungs are clear to auscultation. Chest rises symmetrically. There is no chest wall tenderness. CV: Heart is regular rate and rhythm without murmurs rubs or gallops. ABDOMEN: Abdomen is soft, nontender to palpation. There are no abdominal abnormal masses palpated. There is no organomegaly. Bowel sounds are present and active. SKIN: Skin is warm and dry. Patient has excoriations on her calves bilaterally with a central area of total thickness skin loss pressure ulcers. EXTREMITIES: Patient has full range of motion without tenderness. There is 2+ pedal edema. NEUROLOGIC: Awake alert and oriented 4. Cranial nerves II through XII are grossly intact. Motor is 5 over 5 in all extremities bilaterally. Course - Consultations Consultation #1: Discussed with hospitalist. Patient will be admitted to their service. Time: 11:11 Results - Labs CBC & BMP: 03/10/17 10:57 03/10/17 10:57 Lab Results: I have reviewed the patients labs - Diagnostic Findings Procedure: Chest x-ray: image reviewed by me Disposition Clinical Impression: Fever, Morbid obesity, Diabetes mellitus, Decubitus ulcers, Renal failure Case discussed with: patient Disposition: Still a Patient
[2017-03-10] MEDS ORDERED: cefTRIAXone 1,000 MG in SODIUM CHLORIDE 0.9% 100 ML IV STA (10:42)
--- NOTE | 2017-03-10 10:52 | XRay Report ---
XR chest 1V portable Indication: Fever Comparison: 04 February 2017 Findings: The heart and mediastinum are normal in size and configuration. The pulmonary vascularity is normal in caliber. Interstitial densities slightly prominent in the left lung, similar findings were present on previous exam. No other lung infiltrates, effusions, pneumothorax or other abnormality is demonstrated. Impression: Prominent interstitial density more prominent in the left lung, similar to previous study. No other acute findings seen. PROCEDURE INTERPRETED AT [facility] DEPARTMENT OF RADIOLOGY Final Report Signed by: Dr. Benedicto Bennett
[2017-03-10] MEDS ORDERED: ACETAMINOPHEN 500 MG TABLET PO STA (11:03)
[2017-03-10] MEDS ORDERED: cefTRIAXone 1,000 MG VIAL ONE (11:08)
[2017-03-10] MEDS ORDERED: ACETAMINOPHEN 500 MG TABLET ONE (11:14)
[2017-03-10 11:19] LABS: Basophils % 0.2 % (0.0-0.8); Hematocrit 33.6 VOL% (35.7-47.0); Hemoglobin 11.1 GM/DL (12.0-16.0); Immature Granulocytes % 0.9 %; Immature Granulocytes Absolute 0.15 #; Lymphocytes # 0.8 10*3/uL (1.4-4.0); Lymphocytes % 4.5 % (21.3-54.2); Mean Corpuscular Hemoglobin 29 PG (27-34); Mean Platelet Volume 10.2 FL (9.6-12.0); Monocytes # 0.5 10*3/uL (0.11-0.8); Monocytes % 3.1 % (1.7-12.7); Neutrophils # 15.8 10*3/uL (1.4-7.4); Neutrophils % 91.3 % (38.7-73.9); Platelet Count 192 T/CUMM (130-400); Red Blood Count 3.86 MC/CUMM (3.8-5.5); Red Cell Distribution Width 15.3 % (9.3-17.3); White Blood Count 17.3 T/CUMM (4-12)
[2017-03-10 11:28] LABS: Apearance,Urine CLEAR (Clear); Bilirubin,Urine Negative (Negative); Blood, Urine Small mg/dL (Negative); Glucose,Urine (UA) Negative (Negative); Ketones,Urine Negative (Negative); Nitrite,Urine Negative (Negative); Protein,Urine 30 MG/DL; RBC,Urine 1 /HPF (0-4); Squamous Epithelial Cell,Urine Occasional /HPF (0-10); Urine Color Yellow (Yellow); Urine Specific Gravity 1.012 (1.001-1.035); Urine Urobilinogen < 2.0 EU/DL (0.2-1.0); WBC,Urine <1 /HPF (0-6)
[2017-03-10 11:34] LABS: INR 1.2; PT Patient Result 12.4 SECS
[2017-03-10 11:41] LABS: Band Neutrophils 8 % (0-10); Hypochromasia 1+; Lymphocytes 5 % (20-55); Segmented Neutrophils 86 % (50-85); Total Cells Counted 100
[2017-03-10 11:42] LABS: Microcytosis Slight; Platelet Estimate Adequate
[2017-03-10 11:49] LABS: Albumin 3.2 G/DL (3.4-5.0); Bilirubin,Total 0.6 MG/DL (0.2-1.0); Calcium 8.3 MG/DL (8.5-10.1); Lactic Acid 1.8 MMOL/L (0.4-2.0); Osmolality,Calculated 277.2 MOS/KG (273-304); Potassium 4.6 MMOL/L (3.5-5.1); Total Protein 8.5 G/DL (6.4-8.3)
--- NOTE | 2017-03-10 12:54 | Hospitalist History & Physical ---
<Heide Matute - Last Filed: 03/10/17 12:47> Assessment and Plan - Time spent with patient Time spent with patient: Greater than 30 minutes (1) Cellulitis Status: Resolved Assessment and plan: Admit to floor. Start fluids. Start antibiotics. Check A1c. Check a.m. labs. Current Visit: No (2) UTI (urinary tract infection) Status: Resolved Assessment and plan: Patient has chronic history of recurrent UTIs. Patient admits to taking an old prescription of bactrium for the past 4-5 weeks. No obvious UTI this admission. will continue to monitor. Current Visit: No (3) Fever Status: Acute Assessment and plan: PRN tylenol for temperature as needed. Current Visit: Yes (4) Morbid obesity Status: Acute Assessment and plan: Patient chronically morbid obese. Current Visit: Yes History of Present Illness Chief complaint: cellulitis History of present illness: Ms. Dwyer is a 61 year old white female presented to [facility] ED for complaint of fever, chills, dysuria and bilateral lower leg cellulitis. PMHx: recurrent UTI, 5 year long recurrent cellulitis, CHF, CAD, HTN, PVD, Anxiety disorder, diabetes, dyslipidemia, COPD, pulmonary hypertension, anemia. She has chronic bilateral lower extremity edema with skin changes and breakdown, very warm (hot) to touch. She verbalized that she had been taking some bactrium (an old prescription she had) for the past 4-5 weeks because she was trying to treat it at home. After discussion with Dr Francis in the ED and Dr Sanon with hospitalist services, it was agreed to admit patient for further evaluation and management. Home medications will be reviewed and reconciliation to follow. Home Medications Medication Instructions Recorded Confirmed Type FLUoxetine [PROzac] 40 mg PO DAILY 06/12/16 03/10/17 History Tolterodine Tartrate [Tolterodine 4 mg PO DAILY 06/12/16 03/10/17 History LA] HYDROcodone/ACETAMIN 5-325 [[place] 1 tablet PO Q4H PRN #20 tablet 11/12/16 Rx 5-325] Allopurinol 200 mg PO DAILY 02/04/17 03/10/17 History Furosemide Tab [Lasix Tab] 1 tablet PO BID 02/04/17 03/10/17 History Gabapentin Cap/Tab [Neurontin 100 mg PO BID 02/04/17 03/10/17 History Cap/Tab] Levothyroxine Tab [Synthroid Tab] 75 mcg PO DAILY 02/04/17 03/10/17 History Pravastatin [Pravachol] 10 mg PO DAILY 02/04/17 03/10/17 History glipiZIDE [Glucotrol] 5 mg PO BID 02/04/17 03/10/17 History Collagenase Clostridium Hist. 1 applic TOP BID 03/10/17 03/10/17 History [Santyl] Topiramate [Topiramate] 25 mg PO BID 03/10/17 03/10/17 History buPROPion XL [Wellbutrin Xl] 150 mg PO DAILY 03/10/17 03/10/17 History Allergies Allergy/AdvReac Type Severity Reaction Status Date / Time No Known Allergies Allergy Unverified 02/04/17 19:14 Medical,Surgical,& Family Hx - Medical History Cardio: History of: CHF, CAD, Hypertension, PVD, Cardiovascular Problems ( lymphadema) No history of: [place] Psychological: History of: Anxiety Disorders No history of: ADHD, Behavior Problems, Bipolar Disorder, Depression, Previous Suicide Attempt, Psychiatric/Substance Abuse Tx, Schizophrenia, Violent Behavior, Psychiatric Problems HEENT: Comment Only: Eye Problem (wears glasses) Endocrine: History of: Diabetes Mellitus (NIDDM), Dyslipidemia No history of: Diabetes Mellitus (IDDM) Respiratory: History of: Bronchitis, COPD, Pulmonary Hypertension, Pneumonia Renal: History of: Renal Problems Genitourinary: History of: Recurring Urinary Tract Infections Hematology: History of: Anemia - Surgical History Reproductive Surgeries: Surgical HX of;: Section - Family History Family History: Reports;: Family Cancer, Family Diabetes, Family Heart Disease, Family Hypertension, Family Stroke - Social History Smoking Status: Never smoker Frequency of Alcohol Use: None Type of Drug Use: None Marital Status: Review of systems: ROS completed and pertinent positives and negatives in the HPI. Exam - Constitutional Vitals: Period Temp Pulse Resp BP Sys/Miller Pulse Ox Last 24 Hr 100.8 F-100.8 F 78-78 22-22 103-103/65-65 94 General appearance: over weight, morbidly obese - Head Head exam: Present: normal inspection - Eye Eye exam: Present: EOMI Pupils: Present: KATIANA - Neck Neck exam: Present: normal inspection - Respiratory Respiratory exam: Present: clear to auscultation bilaterally - Cardiovascular Cardiovascular exam: Present: regular rate and rhythm - GI/Abdominal GI/Abdominal exam: Present: normal bowel sounds, soft. Absent: tenderness, rebound - Extremities Exam Extremities exam: Present: full ROM, edema (2+ edema pedal), other (bilateral dressings to lower ankle areas) Results - Labs CBC & BMP: 03/10/17 10:57 03/10/17 10:57 Lab Results: I have reviewed the past 24 hour labs - Diagnostic Findings Procedure: X-ray: report reviewed by me (prominent interstitial density more prominent in the left lung, similar to previous study, no other acute findings seen) <Quincy Sanon - Last Filed: 03/10/17 16:28> History of Present Illness History of present illness: Patient seen and examined independently of RADIOLOGY ASSISTANT Matute, agree with history, assessment and plan as documented. Patient presents with chills along with redness of BLE. Symptoms started yesterday. But she has been feeling bad for a couple of weeks. She has a history BLE wounds that are not getting better per daughter. She believes that this is due to patient urinating on herself when sleeping during the day and at night. She reports that patient sleeps throughout most of the day. Will admit patient for BLE cellulitis, right > left. Will start teflaro. Obtain BLE dopplers and wound care. Will consult PT/ OT. Change her SSRI to nightly instead of morning. Patient currently lives with her and her daughter provides a great deal of her care. I wonder if she would be willing for swing bed placement for rehab and better wound care. Exam - Constitutional Vitals: Period Temp Pulse Resp BP Sys/Miller Pulse Ox Last 24 Hr 99.9 F-100.8 F 64-78 18-22 103-104/51-65 94-94 Results - Labs CBC & BMP: 03/10/17 10:57 03/10/17 10:57
[2017-03-10] MEDS ORDERED: GLUCAGON 1 MG VIAL IM PRN (14:59)
[2017-03-10] MEDS ORDERED: ACETAMINOPHEN 325 MG TABLET PO PRN (14:59)
[2017-03-10] MEDS ORDERED: DOCUSATE SODIUM 100 MG CAPSULE PO PRN (14:59)
[2017-03-10] MEDS ORDERED: ONDANSETRON 4 MG/2 ML VIAL IV PRN (14:59)
[2017-03-10] MEDS ORDERED: DEXTROSE 50% 25 GM/50 ML VIAL IV PRN (14:59)
[2017-03-10] MEDS ORDERED: LACTULOSE 20 GM/30 ML UDCUP PO PRN (14:59)
[2017-03-10] MEDS ORDERED: ENOXAPARIN 30 MG/0.3 ML SYRINGE SUBCUT SCH (16:00)
--- NOTE | 2017-03-10 16:17 | Ultrasound Report ---
History: Lower extremity swelling and cellulitis Date: 03/10/2017 Study: Bilateral lower extremity color-flow venous Doppler study Comparison exam: November 02, 2016 Color Doppler, wave form analysis, and compression analysis of the deep veins of both lower extremities from the common femoral vein level through the popliteal vein level shows that the veins are readily compressible. There is no abnormal intraluminal material to suggest thrombus. Waveform analysis is unremarkable. Ultrasound images were captured and archived Impression: Normal bilateral lower extremity color flow venous Doppler study. No evidence of acute DVT PROCEDURE INTERPRETED AT [facility] [place] DEPARTMENT OF RADIOLOGY Final Report Signed by: Dr. Delores Rhoades
[2017-03-10] MEDS ORDERED: INSULIN REGULAR 100 UNIT/ML SUBCUT SCH (16:30)
[2017-03-10] MEDS: CEFTAROLINE 400 MG in SODIUM CHLORIDE 0.9% 100 ML IV SCH (16:46)
[2017-03-10] MEDS: SODIUM CHLORIDE 0.9% 1,000 ML IV SCH (16:53)
[2017-03-10] MEDS: INSULIN LISPRO 100 UNIT/ML SUBCUT SCH ×2 (16:54→22:27)
[2017-03-10] MEDS: traZODone 50 MG TABLET PO PRN (22:26)
[2017-03-11] MEDS: SODIUM CHLORIDE 0.9% 1,000 ML IV SCH ×4 (00:40→22:28)
[2017-03-11] MEDS: CEFTAROLINE 400 MG in SODIUM CHLORIDE 0.9% 100 ML IV SCH ×2 (04:10→15:58)
[2017-03-11 05:27] LABS: Basophils # 0.1 10*3/uL (0.0-0.2); Basophils % 0.5 % (0.0-0.8); Hematocrit 28.4 VOL% (35.7-47.0); Immature Granulocytes % 0.5 %; Immature Granulocytes Absolute 0.05 #; Lymphocytes # 1.5 10*3/uL (1.4-4.0); Lymphocytes % 13.6 % (21.3-54.2); Mean Corpuscular HGB Conc 31.7 GM/DL (32-36); Mean Corpuscular Hemoglobin 28 PG (27-34); Mean Platelet Volume 10.4 FL (9.6-12.0); Monocytes # 0.6 10*3/uL (0.11-0.8); Monocytes % 5.2 % (1.7-12.7); Neutrophils # 8.7 10*3/uL (1.4-7.4); Neutrophils % 80.2 % (38.7-73.9); Platelet Count 166 T/CUMM (130-400); Red Blood Count 3.19 MC/CUMM (3.8-5.5); Red Cell Distribution Width 15.5 % (9.3-17.3); White Blood Count 10.9 T/CUMM (4-12)
[2017-03-11 05:49] LABS: Band Neutrophils 3 % (0-10); Hypochromasia 1+; Lymphocytes 16 % (20-55); Microcytosis 1+; Platelet Estimate Adequate; Segmented Neutrophils 77 % (50-85); Total Cells Counted 100
[2017-03-11 06:06] LABS: Calcium 7.7 MG/DL (8.5-10.1); Osmolality,Calculated 281.8 MOS/KG (273-304); Potassium 4.2 MMOL/L (3.5-5.1)
[2017-03-11] MEDS: PANTOPRAZOLE 40 MG TABLET PO SCH (09:45)
[2017-03-11] MEDS: LEVOTHYROXINE 75 MCG TABLET PO SCH (09:46)
[2017-03-11] MEDS: ALLOPURINOL 100 MG TABLET PO SCH (09:46)
--- NOTE | 2017-03-11 09:54 | Hospitalist Progress Note ---
Addendum entered and electronically signed by Heide Matute NP 03/11/17 10:10: Doppler of bilateral legs were completed 03/10/17 - No DVT found; normal bilateral lower extremity color flow doppler study. Original Note: Assessment and Plan - Time spent with patient Time spent with patient: Less than 30 minutes (1) Cellulitis Status: Resolved Assessment and plan: 03/11/17 WBC down to 10.9 from 17.3. Bilateral lower leg cellulitis, left appearing worse than right. Will continue Teflaro antibiotic coverage. Will consult Dr Jackson for wound evaluation and further recommendations of care. Will repeat labs in a.m. Will discuss with Dr Tapia for further recommendations. 03/10/17 -Admit to floor. Start fluids. Start antibiotics. Check A1c. Check a.m. labs. Current Visit: No (2) Fever Status: Acute Assessment and plan: 03/11/17 - Low grade temp 100.5 this a.m.. Will continue Tylenol PRN for coverage of temperature elevation. 03/10/17 -PRN tylenol for temperature as needed. Current Visit: Yes (3) Morbid obesity Status: Chronic Assessment and plan: 03/11/17 - PT and OT consulted. 03/10/17 Patient chronically morbid obese. Current Visit: Yes Hospitalist: Subjective Interval history: 03/11/17 - Ms Dwyer appears to be feeling much better this morning, appears more energetic. She denies nausea, vomiting, shortness of breath or chills. She was noted to have a low grade temp of 100.5 this a.m. She verbalized having a very restful night last night. She has clean, dry bilateral dressings to lower legs. Left leg slightly more red than the right and with more warmth to touch. She verbalized the wound on the left leg was worse than the right side.She reports Dr Jackson follows her for wound care. Exam - Constitutional Vitals: Period Temp Pulse Resp BP Sys/Miller Pulse Ox Last 24 Hr 97.2 F-100.8 F 64-81 16-22 81-116/37-65 92-95 General appearance: no acute distress, morbidly obese - Head Head exam: Present: normal inspection - Eye Eye exam: Present: EOMI Pupils: Present: KATIANA - ENT ENT exam: Present: other (moist membranes) - Neck Neck exam: Present: normal inspection. Absent: thyromegaly - Respiratory Respiratory exam: Present: clear to auscultation bilaterally. Absent: wheezes - Cardiovascular Cardiovascular exam: Present: regular rate and rhythm - GI/Abdominal GI/Abdominal exam: Present: normal bowel sounds, soft. Absent: tenderness, rebound - Extremities Exam Extremities exam: Present: full ROM, edema (2+ pedal edema), other (bilateral lower leg cellulitis and bilateral lower leg clean, dry intact dressings). Absent: calf tenderness - Neurological Exam Neurological exam: Present: alert, oriented X3 - Psychiatric Psychiatric exam: Present: normal affect, normal mood - Skin Skin exam: Present: normal color, warm, dry, erythema (bilateral lower legs ( left worse than right) due to recurrent/chronic cellulitis) Results - Labs CBC & BMP: 03/11/17 05:06 03/11/17 05:06 Lab Results: I have reviewed the past 24 hour labs Labs: BUN 39 and creatinine 2.00 A1c 6.0
[2017-03-11] MEDS: GABAPENTIN 100 MG CAPSULE PO SCH ×2 (10:04→21:26)
[2017-03-11] MEDS: buPROPion XL 150 MG TABLET PO SCH (10:04)
[2017-03-11] MEDS: INSULIN LISPRO 100 UNIT/ML SUBCUT SCH ×4 (10:06→22:29)
[2017-03-11] MEDS: ENOXAPARIN 40 MG/0.4 ML SYRINGE SUBCUT SCH (17:57)
[2017-03-11] MEDS: traZODone 50 MG TABLET PO PRN (21:27)
[2017-03-11] MEDS: FLUoxetine 20 MG CAPSULE PO SCH (21:27)
[2017-03-12] MEDS: CEFTAROLINE 400 MG in SODIUM CHLORIDE 0.9% 100 ML IV SCH ×2 (04:15→17:44)
[2017-03-12 05:21] LABS: Basophils % 0.3 % (0.0-0.8); Hematocrit 27.7 VOL% (35.7-47.0); Hemoglobin 8.9 GM/DL (12.0-16.0); Immature Granulocytes % 0.1 %; Immature Granulocytes Absolute 0.01 #; Lymphocytes # 1.2 10*3/uL (1.4-4.0); Lymphocytes % 16.6 % (21.3-54.2); Mean Corpuscular HGB Conc 32.1 GM/DL (32-36); Mean Corpuscular Hemoglobin 28 PG (27-34); Mean Corpuscular Volume 88.5 FL (87-102); Mean Platelet Volume 11.2 FL (9.6-12.0); Monocytes # 0.5 10*3/uL (0.11-0.8); Neutrophils # 5.6 10*3/uL (1.4-7.4); Platelet Count 168 T/CUMM (130-400); Red Blood Count 3.13 MC/CUMM (3.8-5.5); Red Cell Distribution Width 15.4 % (9.3-17.3); White Blood Count 7.3 T/CUMM (4-12)
[2017-03-12 05:48] LABS: Calcium 7.7 MG/DL (8.5-10.1); Magnesium 2.2 MG/DL (1.8-2.4); Osmolality,Calculated 284.7 MOS/KG (273-304)
[2017-03-12] MEDS: SODIUM CHLORIDE 0.9% 1,000 ML IV SCH ×4 (06:38→15:20)
[2017-03-12] MEDS: INSULIN LISPRO 100 UNIT/ML SUBCUT SCH ×4 (08:53→21:56)
[2017-03-12] MEDS: buPROPion XL 150 MG TABLET PO SCH (08:59)
[2017-03-12] MEDS: ALLOPURINOL 100 MG TABLET PO SCH (08:59)
[2017-03-12] MEDS: LEVOTHYROXINE 75 MCG TABLET PO SCH (09:00)
[2017-03-12] MEDS: PANTOPRAZOLE 40 MG TABLET PO SCH (09:00)
[2017-03-12] MEDS: GABAPENTIN 100 MG CAPSULE PO SCH ×2 (09:00→21:54)
--- NOTE | 2017-03-12 10:44 | Hospitalist Progress Note ---
Addendum entered and electronically signed by Heide Matute NP 03/12/17 10:57: Awaiting final wound culture results. Continue Teflaro at present. Original Note: Assessment and Plan - Time spent with patient Time spent with patient: Less than 30 minutes (1) Cellulitis Status: Resolved Assessment and plan: 03/12/17 - WBC down to 7.3. Minimal improvement of swelling to lower bilateral legs. Redness improving to right leg, left leg skin still quite red. Will continue Teflaro. Patient wants Dr Fernandes to follow her wounds instead of Dr Renetta Newman, per report received from QUINTEN Carlson (surgical). Will continue to monitor closely. Will consult Dr Fernandes per patient request. 03/11/17 WBC down to 10.9 from 17.3. Bilateral lower leg cellulitis, left appearing worse than right. Will continue Teflaro antibiotic coverage. Will consult Dr Jackson for wound evaluation and further recommendations of care. Will repeat labs in a.m. Will discuss with Dr Tapia for further recommendations. 03/10/17 -Admit to floor. Start fluids. Start antibiotics. Check A1c. Check a.m. labs. Current Visit: No (2) Fever Status: Acute Assessment and plan: 03/12/17 - No temp noted throughout the night. Will continue to monitor. 03/11/17 - Low grade temp 100.5 this a.m.. Will continue Tylenol PRN for coverage of temperature elevation. 03/10/17 -PRN tylenol for temperature as needed. Current Visit: Yes (3) Morbid obesity Status: Chronic Assessment and plan: 03/12/17 - Continue PT and OT. 03/11/17 - PT and OT consulted. 03/10/17 Patient chronically morbid obese. Current Visit: Yes Hospitalist: Subjective Interval history: 03/12/17 - Ms Dwyer feeling better today. Examined patient and reviewed chart. No acute events to report. Verbalized not sleeping very well last night, she reports taking her prozac last night and she feels that when she takes it at night, it keeps her from sleeping. She feels her bilateral leg swelling has improved some, it appears to be less "hot" to touch with less redness to right side but continues to have redness to left leg. Exam - Constitutional Vitals: Period Temp Pulse Resp BP Sys/Miller Pulse Ox Last 24 Hr 96.5 F-99.0 F 66-87 16-20 90-127/44-67 90-96 General appearance: morbidly obese - Head Head exam: Present: normal inspection - Eye Eye exam: Present: EOMI Pupils: Present: KATIANA - Neck Neck exam: Present: normal inspection. Absent: thyromegaly - Respiratory Respiratory exam: Present: clear to auscultation bilaterally. Absent: rhonchi, wheezes - Cardiovascular Cardiovascular exam: Present: regular rate and rhythm - GI/Abdominal GI/Abdominal exam: Present: normal bowel sounds, soft. Absent: tenderness, rebound - Extremities Exam Extremities exam: Present: full ROM, edema (swelling with minimal improvement, redness improved to rigth side but still significant to left side) - Neurological Exam Neurological exam: Present: alert, oriented X3, CN II-XII intact - Psychiatric Psychiatric exam: Present: normal affect, normal mood - Skin Skin exam: Present: normal color, warm, dry Results - Labs CBC & BMP: 03/12/17 04:28 03/12/17 04:28 Lab Results: I have reviewed the past 24 hour labs Labs: WBC stable at 7.3 less than yesterday 10.9. Blood glucose stable in the 120s range
--- NOTE | 2017-03-12 12:45 | General Surgery Consult Note ---
Assessment and Plan - Time spent with patient Time spent with patient: Greater than 30 minutes (1) Chronic acquired lymphedema Status: Acute Assessment and plan: Impression. Possible lymphedematous changes of both lower extremities etiology of this is unclear though. Plan: We will try to get some compressive therapy on to this at this time. Current Visit: No (2) Venous stasis ulcers of both lower extremities Status: Acute Assessment and plan: Impression: 1. Ulcerations lateral aspect of both calves probably secondary to some underlying pressure versus chronic venous stasis disease with ulceration 2. Venous stasis dermatitis of the lower extremities. Plan: We will start wound care to the ulcers themselves try to see if we get something to respond but also looking for weight offloading pressure on it when she is in bed. Patient's progress and need some sort of special mattress to keep pressure off these areas and try to be turned frequently enough to keep pressure off these Areas. We will try compressive wraps and wound care to try to improve the general status and swelling lower extremities. Current Visit: Yes History of Present Illness Chief complaint: Bilaterals ulcers both legs with chronic venous stasis and lymphedematous c History of present illness: Ms. Dwyer is a 61 year old female white female with morbid obesity who has chronic venous stasis disease of lower extremity with some lymphedematous changes. She indicates this is a pain going on for 5 years but I suspect is been a longer process in that. She has been at the wound center trying to treat these ulcers but the problem lies there posteriorly on the calves and that is when she is in the bed she is always lying with those areas pressed down on the bed. She does sit up but she is always in a recliner and she will let at times puts the legs propped up on other chairs and stools but there is still dependent most the time. We will see if we can get some compressive therapy going on this and get these things wrapped up well and protected and see if we can somehow pad him and offload him to some degree. Home Medications Medication Instructions Recorded Confirmed Type FLUoxetine [PROzac] 40 mg PO DAILY 06/12/16 03/10/17 History Tolterodine Tartrate [Tolterodine 4 mg PO DAILY 06/12/16 03/10/17 History [place]] HYDROcodone/ACETAMIN 5-325 [[place] 1 tablet PO Q4H PRN #20 tablet 11/12/16 Rx 5-325] Allopurinol 200 mg PO DAILY 02/04/17 03/10/17 History Furosemide Tab [Lasix Tab] 1 tablet PO BID 02/04/17 03/10/17 History Gabapentin Cap/Tab [Neurontin 100 mg PO BID 02/04/17 03/10/17 History Cap/Tab] Levothyroxine Tab [Synthroid Tab] 75 mcg PO DAILY 02/04/17 03/10/17 History Pravastatin [Pravachol] 10 mg PO DAILY 02/04/17 03/10/17 History glipiZIDE [Glucotrol] 5 mg PO BID 02/04/17 03/10/17 History Collagenase Clostridium Hist. 1 applic TOP BID 03/10/17 03/10/17 History [Santyl] Topiramate [Topiramate] 25 mg PO BID 03/10/17 03/10/17 History buPROPion XL [Wellbutrin Xl] 150 mg PO DAILY 03/10/17 03/10/17 History Allergies Allergy/AdvReac Type Severity Reaction Status Date / Time No Known Allergies Allergy Unverified 02/04/17 19:14 Medical,Surgical,& Family Hx - Medical History Cardio: History of: CHF, CAD, Hypertension, PVD, Cardiovascular Problems ( lymphadema) No history of: PA Psychological: History of: Anxiety Disorders No history of: ADHD, Behavior Problems, Bipolar Disorder, Depression, Previous Suicide Attempt, Psychiatric/Substance Abuse Tx, Schizophrenia, Violent Behavior, Psychiatric Problems HEENT: Comment Only: Eye Problem (wears glasses) Endocrine: History of: Diabetes Mellitus (NIDDM), Dyslipidemia No history of: Diabetes Mellitus (IDDM) Respiratory: History of: Bronchitis, COPD, Pulmonary Hypertension, Pneumonia Renal: History of: Renal Problems Genitourinary: History of: Recurring Urinary Tract Infections Hematology: History of: Anemia - Surgical History Reproductive Surgeries: Surgical HX of;: Section - Family History Family History: Reports;: Family Cancer, Family Diabetes, Family Heart Disease, Family Hypertension, Family Stroke - Social History Smoking Status: Never smoker Frequency of Alcohol Use: None Type of Drug Use: None 12 point system: reviewed and no additional remarkable complaints except as stated Exam - Constitutional Vitals: Period Temp Pulse Resp BP Sys/Miller Pulse Ox Last 24 Hr 96.5 F-99.0 F 63-87 16-20 90-127/44-67 90-94 General appearance: mild distress - Head Head exam: Present: normal inspection - ENT ENT exam: Present: normal exam - Neck Neck exam: Present: normal inspection - Respiratory Respiratory exam: Present: clear to auscultation bilaterally, rales - Cardiovascular Cardiovascular exam: Present: RRR - GI/Abdominal GI/Abdominal exam: Present: hypoactive bowel sounds, soft - Extremities Exam Extremities exam: Present: edema (Bilateral lower extremity swelling from the groin to the feet worse from the knees down), other (There are ulcers on the lateral aspect of both calves the left greater than the right that are fairly superficial with a fair granulating base with no gross necrotic tissue present. There is some stasis changes are rounded and some dependent rubor but cannot really say there is erythematous changes present at this time. Pulses are 3+ dorsalis pedis both feet.) - Back Exam Back exam: Present: normal inspection - Neurological Exam Neurological exam: Present: alert, oriented X3, CN II-XII intact - Skin Skin exam: Present: normal color, warm, dry Results - Labs CBC & BMP: 03/12/17 04:28 03/12/17 04:28 Lab Results: I have reviewed the past 24 hour labs
[2017-03-12] MEDS ORDERED: ACETIC ACID 0.25% IRRIGATION 1,000 ML BOTTLE IRRIG SCH (14:30)
[2017-03-12] MEDS ORDERED: GENTAMICIN 0.1% CREAM 15 GM TUBE TOP SCH (14:30)
[2017-03-12] MEDS ORDERED: SKIN HEALING OINT (AQUAPHOR) 50 GM TUBE TOP SCH (14:30)
--- NOTE | 2017-03-12 14:50 | Physician Query Form ---
CLICK EDIT DOCUMENT TO SELECT QUERY ANSWER --> OK --> SIGN Akua Ng RN Clinical Patient Account Specialist W) [phone] (f) [phone] [email or web address] PROVIDERS: Make your selection(s) from the choices in EACH section by typing an "x" and enter comments in the comment section. Please use your independent medical judgment in providing your response. This request does not imply that any particular answer is desired or expected. CLINICAL INDICATORS: (Providers should not edit this section) Based on lab results of creatinine on admission of 2.10 with ah GFR of 39 and decreased to 1.80. Pt. treated with IV fluids of Normal Saline. Clarify which of the following most accurately represents the patient's renal status: ( ) Acute kidney injury (non-traumatic) ( ) Acute renal failure ( ) Acute renal failure with underlying Chronic Kidney Disease (CKD) - please provide stage below (X ) CKD ( ) Other, please specify: ( ) Clinically unable to determine Chronic Kidney Disease Stages Source: National Kidney Disease Foundation ( ) Stage I (eGFR > or = 90) ( ) Stage II (eGFR 60 - 89) (X ) Stage III (eGFR 30 - 59) ( ) Stage IV (eGFR 15 - 29) ( ) Stage V (eGFR < 15 or dialysis) COMMENTS: PLEASE ALSO DOCUMENT RESPONSE IN PROGRESS NOTES AND/OR DISCHARGE SUMMARY Use of terms such as suspected, likely, or probable (associated with a specific diagnosis that is being evaluated, monitored, or treated as if it exists) are acceptable and can be restated in the discharge summary if not ruled out. MTDD
[2017-03-12] MEDS: ENOXAPARIN 40 MG/0.4 ML SYRINGE SUBCUT SCH (17:46)
[2017-03-12] MEDS: traZODone 50 MG TABLET PO PRN (21:53)
[2017-03-12] MEDS: FLUoxetine 20 MG CAPSULE PO SCH (21:55)
[2017-03-13] MEDS: SODIUM CHLORIDE 0.9% 1,000 ML IV SCH ×4 (00:26→09:40)
[2017-03-13] MEDS: CEFTAROLINE 400 MG in SODIUM CHLORIDE 0.9% 100 ML IV SCH (04:03)
[2017-03-13 05:42] LABS: Basophils % 0.6 % (0.0-0.8); Hematocrit 27.8 VOL% (35.7-47.0); Hemoglobin 8.8 GM/DL (12.0-16.0); Immature Granulocytes % 0.2 %; Immature Granulocytes Absolute 0.01 #; Lymphocytes # 1.2 10*3/uL (1.4-4.0); Lymphocytes % 26.2 % (21.3-54.2); Mean Corpuscular HGB Conc 31.7 GM/DL (32-36); Mean Corpuscular Hemoglobin 28 PG (27-34); Mean Corpuscular Volume 89.4 FL (87-102); Mean Platelet Volume 10.5 FL (9.6-12.0); Monocytes # 0.4 10*3/uL (0.11-0.8); Monocytes % 7.7 % (1.7-12.7); Neutrophils % 65.3 % (38.7-73.9); Platelet Count 175 T/CUMM (130-400); Red Blood Count 3.11 MC/CUMM (3.8-5.5); Red Cell Distribution Width 15.2 % (9.3-17.3); White Blood Count 4.7 T/CUMM (4-12)
[2017-03-13 06:12] LABS: Calcium 7.8 MG/DL (8.5-10.1); Magnesium 2.3 MG/DL (1.8-2.4); Osmolality,Calculated 284.4 MOS/KG (273-304); Potassium 4.5 MMOL/L (3.5-5.1)
--- NOTE | 2017-03-13 08:25 | General Surgery Progress Note ---
Assessment and Plan (1) Chronic acquired lymphedema Status: Acute Assessment and plan: Impression. Possible lymphedematous changes of both lower extremities etiology of this is unclear though. Plan: We will try to get some compressive therapy on to this at this time. Current Visit: No (2) Venous stasis ulcers of both lower extremities Status: Acute Assessment and plan: Impression: 1. Ulcerations lateral aspect of both calves probably secondary to some underlying pressure versus chronic venous stasis disease with ulceration 2. Venous stasis dermatitis of the lower extremities. Plan: We will start wound care to the ulcers themselves try to see if we get something to respond but also looking for weight offloading pressure on it when she is in bed. Patient's progress and need some sort of special mattress to keep pressure off these areas and try to be turned frequently enough to keep pressure off these Areas. We will try compressive wraps and wound care to try to improve the general status and swelling lower extremities. 03/13/2017 New wound care orders have been initiated and the dressings are in place but they do have a tendency to slide down. This is going be to challenges keeping a good dressing in place at this point. We will try to get [employer] to look at the possibility of some [place] wraps and possibly a lymphedematous pump. We do need to get her a little more elevated on her legs at least level with her chest to try to see if we get some edema out. We will get dietary to talk to her about weight reduction diet to see if this will improve general status also. Big challenge is going to be having home health and home health be able to come out effectively to address these wounds. I am not sure that family members can learn to do it due to the large size of her legs and get an effective dressing in place. Current Visit: Yes Subjective Patient reports: Present: no new complaints, afebrile Exam - Constitutional Vitals: Period Temp Pulse Resp BP Sys/Miller Pulse Ox Last 24 Hr 97.1 F-98.2 F 62-66 17-20 105-115/50-60 94-97 General appearance: mild distress - Head Head exam: Present: normal inspection - ENT ENT exam: Present: normal exam - Neck Neck exam: Present: normal inspection - Respiratory Respiratory exam: Present: rales - Cardiovascular Cardiovascular exam: Present: RRR - GI/Abdominal GI/Abdominal exam: Present: hypoactive bowel sounds, soft - Extremities Exam Extremities exam: Present: edema - Back Exam Back exam: Present: normal inspection - Neurological Exam Neurological exam: Present: alert, oriented X3, CN II-XII intact - Skin Skin exam: Present: normal color, warm, dry Results - Labs CBC & BMP: 03/13/17 05:18 03/13/17 05:18 Lab Results: I have reviewed the past 24 hour labs
[2017-03-13] MEDS ORDERED: DEXTROSE 50% 25 GM/50 ML SYRINGE IV PRN (08:30)
[2017-03-13] MEDS: PANTOPRAZOLE 40 MG TABLET PO SCH (09:35)
[2017-03-13] MEDS: buPROPion XL 150 MG TABLET PO SCH (09:35)
[2017-03-13] MEDS: GABAPENTIN 100 MG CAPSULE PO SCH (09:35)
[2017-03-13] MEDS: LEVOTHYROXINE 75 MCG TABLET PO SCH (09:35)
[2017-03-13] MEDS: ALLOPURINOL 100 MG TABLET PO SCH (09:36)
[2017-03-13] MEDS: INSULIN LISPRO 100 UNIT/ML SUBCUT SCH ×2 (09:36→13:07)
--- NOTE | 2017-03-13 09:42 | Hospitalist Progress Note ---
Assessment and Plan - Time spent with patient Time spent with patient: Less than 30 minutes (1) Cellulitis Status: Resolved Assessment and plan: 03/13/17 - Dr Fernandes is following. Appreciate recommendations and treatment plan. Case management is working on getting her to approved to go to [facility] for rehab and further wound care. Will continue wound care. Waiting on final wound cultures. Will continue antibiotics. Will repeat labs. 03/12/17 - WBC down to 7.3. Minimal improvement of swelling to lower bilateral legs. Redness improving to right leg, left leg skin still quite red. Will continue Teflaro. Patient wants Dr Fernandes to follow her wounds instead of Dr Renetta Newman, per report received from QUINTEN Carlson (surgical). Will continue to monitor closely. Will consult Dr Fernandes per patient request. 03/11/17 WBC down to 10.9 from 17.3. Bilateral lower leg cellulitis, left appearing worse than right. Will continue Teflaro antibiotic coverage. Will consult Dr Jackson for wound evaluation and further recommendations of care. Will repeat labs in a.m. Will discuss with Dr Tapia for further recommendations. 03/10/17 -Admit to floor. Start fluids. Start antibiotics. Check A1c. Check a.m. labs. Current Visit: No (2) Fever Status: Acute Assessment and plan: 03/13/17 - No temp noted. Will continue to monitor. 03/12/17 - No temp noted throughout the night. Will continue to monitor. 03/11/17 - Low grade temp 100.5 this a.m.. Will continue Tylenol PRN for coverage of temperature elevation. 03/10/17 -PRN tylenol for temperature as needed. Current Visit: Yes (3) Morbid obesity Status: Chronic Assessment and plan: 03/13/17 - Continue PT and OT. 03/12/17 - Continue PT and OT. 03/11/17 - PT and OT consulted. 03/10/17 Patient chronically morbid obese. Current Visit: Yes Hospitalist: Subjective Interval history: 03/13/17 - Ms Dwyer verbalized okay night. Patient seen and chart reviewed. Continue current treatment of cellulitis. No acute events were reported. Exam - Constitutional Vitals: Period Temp Pulse Resp BP Sys/Miller Pulse Ox Last 24 Hr 97.1 F-98.2 F 62-66 17-20 105-120/50-60 94-97 General appearance: no acute distress, morbidly obese - Head Head exam: Present: normal inspection - Eye Eye exam: Present: EOMI Pupils: Present: KATIANA - Neck Neck exam: Present: normal inspection. Absent: thyromegaly - Respiratory Respiratory exam: Present: clear to auscultation bilaterally. Absent: wheezes - Cardiovascular Cardiovascular exam: Present: regular rate and rhythm - GI/Abdominal GI/Abdominal exam: Present: normal bowel sounds, soft. Absent: tenderness, rebound - Extremities Exam Extremities exam: Present: full ROM, edema (bilateral lower legs, improving noted but left worse than right ) - Neurological Exam Neurological exam: Present: alert, oriented X3, CN II-XII intact - Psychiatric Psychiatric exam: Present: normal affect, normal mood - Skin Skin exam: Present: warm, dry, erythema (left leg more than right leg, dressings clean and dry intact) Results - Labs CBC & BMP: 03/13/17 05:18 03/13/17 05:18 Lab Results: I have reviewed the past 24 hour labs
--- NOTE | 2017-03-13 10:47 | Discharge Summary ---
Discharge Plan - Discharge Data Disposition: Disch/Xfer-Ip Rehab Fac Condition at Discharge: Stable Discharge Diet: diabetic diet, low salt diet Activity: as per physical therapy, increase activity as tolerated - Discharge Medications New Ceftaroline [Teflaro] 400 mg IV Q12H vial Dextrose 50% [D50] 25 gm IV PRN PRN syringe PRN Reason: Hypoglycemia with IV access Docusate Sodium Cap [Colace Cap] 100 mg PO BID PRN capsule PRN Reason: Constipation Enoxaparin [Lovenox] 40 mg SUBCUT Q24H syringe Glucagon 1 mg IM PRN PRN vial PRN Reason: Hypoglycemia w/o IV access HYDROcodone/ACETAMIN 5-325 [[place] 5-325] 1 tablet PO Q4H PRN tablet PRN Reason: Pain Mild (1-3) Lactulose Liquid [Chronulac] 20 gm PO Q4H PRN PRN Reason: Constipation Ondansetron Inj [Zofran Inj] 4 mg IV Q4H PRN vial PRN Reason: Nausea Skin Healing Oint (Aquaphor) [Aquaphor] 1 applic TOP DAILY applic traZODone [Desyrel] 25 mg PO BEDTIME PRN tablet PRN Reason: Insomnia Acetaminophen Tab [Tylenol Tab] 325 mg PO Q4H PRN tablet PRN Reason: fever, headache/body aches Acetic Acid 0.25% Irrigation 20 ml IRRIG DAILY ml Gentamicin 0.1% Cream [Garamycin 0.1% Cream] 1 applic TOP DAILY applic Insulin Lispro [HumaLOG] See Protocol SUBCUT ACHS unit Pantoprazole Tab [Protonix Tab] 40 mg PO DAILY tablet Continue FLUoxetine [PROzac] 40 mg PO DAILY Levothyroxine Tab [Synthroid Tab] 75 mcg PO DAILY Gabapentin Cap/Tab [Neurontin Cap/Tab] 100 mg PO BID buPROPion XL [Wellbutrin Xl] 150 mg PO DAILY Allopurinol 200 mg PO DAILY Topiramate 25 mg PO BID Discontinued Tolterodine Tartrate [Tolterodine LA] 4 mg PO DAILY Pravastatin [Pravachol] 10 mg PO DAILY Furosemide Tab [Lasix Tab] 1 tablet PO BID Collagenase Clostridium Hist. [Santyl] 1 applic TOP BID HYDROcodone/ACETAMIN 5-325 [[place] 5-325] 1 tablet PO Q4H PRN #20 tablet PRN Reason: Pain Moderate (4-7) glipiZIDE [Glucotrol] 5 mg PO BID - Follow Up or Referral - Forms/Instructions Exam - Constitutional Vitals: Period Temp Pulse Resp BP Sys/Miller Pulse Ox Last 24 Hr 97.1 F-98.2 F 62-66 17-20 105-120/50-60 94-97 Discharge Results Procedures and tests throughout hospitalization: Pending Orders 03/10/17 10:57 Blood Culture Stat 03/11/17 12:32 Wound Culture Routine Wound Culture Routine 03/14/17 04:00 BMP w/ Mg [Basic Metabolic Panel w/Mg] IN AM CBC [Comp Blood Count Auto Diff] IN AM Labs on day of discharge: Labs from last 24 hours 03/13/17 03/13/17 03/13/17 07:54 05:18 05:18 WBC 4.7 D RBC 3.11 L Hgb 8.8 L Hct 27.8 L MCV 89.4 MCH 28 MCHC 31.7 L RDW 15.2 Plt Count 175 MPV 10.5 Neut % (Auto) 65.3 Lymph % (Auto) 26.2 Falls % (Auto) 7.7 Eos % (Auto) 0.0 Baso % (Auto) 0.6 Neut # (Auto) 3.0 Lymph # (Auto) 1.2 L Falls # (Auto) 0.4 Eos # (Auto) 0.0 Baso # (Auto) 0.0 Immature Gran % 0.2 Nucleated RBC % 0.0 Immature Gran # 0.01 Nucleated RBCs # 0.00 Immature Plt Fraction 0.0 Sodium 140 Potassium 4.5 Chloride 111 H Carbon Dioxide 21 Anion Gap 12.5 BUN 26 H Creatinine 1.50 H GFR Calculation 62 BUN/Creatinine Ratio 17.00 Glucose 117 H POC Glucose 93 Calculated Osmolality 284.4 Calcium 7.8 L Magnesium 2.3 03/12/17 03/12/17 03/12/17 19:38 16:21 11:41 WBC RBC Hgb Hct MCV MCH MCHC RDW Plt Count MPV Neut % (Auto) Lymph % (Auto) Falls % (Auto) Eos % (Auto) Baso % (Auto) Neut # (Auto) Lymph # (Auto) Falls # (Auto) Eos # (Auto) Baso # (Auto) Immature Gran % Nucleated RBC % Immature Gran # Nucleated RBCs # Immature Plt Fraction Sodium Potassium Chloride Carbon Dioxide Anion Gap BUN Creatinine GFR Calculation BUN/Creatinine Ratio Glucose POC Glucose 148 H 182 H 137 H Calculated Osmolality Calcium Magnesium Preliminary micro results at discharge 03/11/17 12:32 Wound Culture - Preliminary Leg - Rt Lower Gram Negative Rods Gram Positive Cocci 03/11/17 12:32 Wound Culture - Preliminary Leg - Left Lower Gram Negative Rods Gram Negative Rods#2 Gram Positive Cocci 03/10/17 10:57 Blood Culture - Preliminary Blood No growth at 1 day 03/10/17 10:57 Blood Culture - Preliminary Blood No growth at 1 day DS: Provider Date of admission: 03/10/17 11:47 Primary care physician: . No PCP Attending physician on admission: Quincy Sanon MD Consults: 03/10/17 14:59 Consult to Case Mgmt/Social Srvs [CONS] Routine Reason for Case Mgmt/Social Srvs: Discharge Planning Consult to Occupational Therapy [CONS] Routine Reason for Occupational Therapy: Evaluate and Treat Consult to Physical Therapy [CONS] Routine Reason for Physical Therapy: Evaluate and Treat Consult to Wound Care - [place] [CONS] Routine Reason for Wound Care: Wound Care Management 03/11/17 10:27 Consult to Physician [CONS] Routine Comment: known to Dr Renetta Newman/ cellulitis coleen lower ext. Consulting Provider: Arnaldo Jackson Jr. When should Consulting Provider be notified: Now Person Notified: Arlet Date Notified: 03/12/17 Time Notified: 08:50 03/12/17 10:31 Consult to Physician [CONS] Routine Comment: pt requests madelaine fernandes of lower extremity wounds Consulting Provider: Juwan Fernandes Person Notified: bandar Date Notified: 03/12/17 Time Notified: 10:55 03/12/17 12:42 Consult to Physical Therapy [CONS] Routine Reason for Physical Therapy: Evaluate and Treat Start Therapy: Tomorrow Consult Comment: ambulate with walker but no sitting 03/12/17 15:06 Consult to Case Mgmt/Social Srvs [CONS] Routine Reason for Case Mgmt/Social Srvs: Other Consult Comment: amish to measure patient for [place] wraps and lympodema pump 03/13/17 08:28 Consult to Case Mgmt/Social Srvs [CONS] Routine Reason for Case Mgmt/Social Srvs: Discharge Planning Home Health Consult Comment: Needs good compressive wraps to the legs daily Consult to Dietitian [CONS] Routine Reason for Dietitian: Dietary Consult Consult Comment: Patient needs a weight reduction diet Discharging clinician: Alena Gómez MD
[2017-03-13 12:35] VITALS: BP 127/68
[2017-03-13] MEDS ORDERED: CEFTAROLINE 600 MG in SODIUM CHLORIDE 0.9% 100 ML IV SCH (16:00)
== END 2017-03-13 16:55 | DRG 603 ==
LOC: N.ED 10:26 → SUATTDRO 11:47 → N.EDINP 11:47 → N.TELEN 14:16
PROVIDERS: ADMIT Internal Medicine; ATTEND Hospitalist

== ENCOUNTER 2017-04-19 20:51 | Inpatient (IN) ==
[2017-04-19] MEDS ORDERED: KETOROLAC 30 MG/1 ML VIAL IV STA (21:38)
[2017-04-19] MEDS ORDERED: SODIUM CHLORIDE 0.9% 2,000 ML IV STA ×2 (21:38→23:32)
[2017-04-19] MEDS ORDERED: CEFEPIME 2,000 MG in SODIUM CHLORIDE 0.9% 100 ML IV STA ×2 (21:39→21:59)
[2017-04-19] MEDS ORDERED: VANCOMYCIN INJ 1,000 MG in SODIUM CHLORIDE 0.9% 250 ML IV STA (21:41)
--- NOTE | 2017-04-19 21:47 | Emergency Department Note ---
Arrival - Arrival Chief Complaint: Fever ED Nursing Triage Note: Pt arrives via ems from home with complaints of fever and headache that started today. Pt denies actually taking temp but did take motrin with no relief. Pt recently discharged from [facility] after being treated for lymphedema to lower ext. Pt still complains of headache and fever. Also complains of decreased appetite today. Mode of Arrival: Stretcher Time Seen by Provider: 04/19/17 21:34 - History of Present Illness HPI Narrative: This is a 61-year-old female with a history of morbid obesity, recurrent cellulitis in the lower extremities from chronic lymphedema, congestive heart failure, coronary artery disease, hypertension, peripheral vascular disease, type 2 diabetes, hyperlipidemia, COPD, pulmonary hypertension, and anemia who is admitted for cellulitis and discharged on March 13 from [facility] and transferred to [facility] where she was discharged on March 31, 2017 at who presents with fever and teeth chattering chills which she believes is reminiscent of her previous admissions for sepsis. She has a low-grade fever and relative hypotension with a systolic blood pressure below 100. Date of Last Menstrual Period: pm Allergies/Adverse Reactions: Allergies Allergy/AdvReac Type Severity Reaction Status Date / Time No Known Allergies Allergy Verified 04/19/17 21:01 Home Medications: Home Medications Medication Instructions Recorded Confirmed Type FLUoxetine [PROzac] 40 mg PO DAILY 06/12/16 03/10/17 History Allopurinol 200 mg PO DAILY 02/04/17 03/10/17 History Gabapentin Cap/Tab [Neurontin 100 mg PO BID 02/04/17 03/10/17 History Cap/Tab] Levothyroxine Tab [Synthroid Tab] 75 mcg PO DAILY 02/04/17 03/10/17 History Topiramate 25 mg PO BID 03/10/17 03/10/17 History buPROPion XL [Wellbutrin Xl] 150 mg PO DAILY 03/10/17 03/10/17 History Acetaminophen Tab [Tylenol Tab] 325 mg PO Q4H PRN tablet 03/13/17 Rx Acetic Acid 0.25% Irrigation 20 ml IRRIG DAILY ml 03/13/17 Rx Ceftaroline [Teflaro] 400 mg IV Q12H vial 03/13/17 Rx Dextrose 50% [D50] 25 gm IV PRN PRN syringe 03/13/17 Rx Docusate Sodium Cap [Colace Cap] 100 mg PO BID PRN capsule 03/13/17 Rx Enoxaparin [Lovenox] 40 mg SUBCUT Q24H syringe 03/13/17 Rx Gentamicin 0.1% Cream [Garamycin 1 applic TOP DAILY applic 03/13/17 Rx 0.1% Cream] Glucagon 1 mg IM PRN PRN vial 03/13/17 Rx HYDROcodone/ACETAMIN 5-325 [[place]orest 1 tablet PO Q4H PRN tablet 03/13/17 Rx 5-325] Insulin Lispro [HumaLOG] See Protocol SUBCUT ACHS unit 03/13/17 Rx Lactulose Liquid [Chronulac] 20 gm PO Q4H PRN 03/13/17 Rx Ondansetron Inj [Zofran Inj] 4 mg IV Q4H PRN vial 03/13/17 Rx Pantoprazole Tab [Protonix Tab] 40 mg PO DAILY tablet 03/13/17 Rx Skin Healing Oint (Aquaphor) 1 applic TOP DAILY applic 03/13/17 Rx [Aquaphor] traZODone [Desyrel] 25 mg PO BEDTIME PRN tablet 03/13/17 Rx Review of System - Review of System Constitutional: Present: chills, fever Eyes: Absent: redness, vision change Head/Ears/Nose/Throat: Absent: epistaxis, nasal drainage Respiratory: Absent: respiratory distress, wheezing Cardiovascular: Absent: dyspnea on exertion, orthopnea Gastrointestinal: Absent: diarrhea, constipation Genitourinary female: Absent: dyspareunia, frequency, genital lesions Musculoskeletal: Absent: joint swelling, lower back pain Skin: Absent: change in color, change in hair/nails Neurological: Absent: numbness, paresthesias Psychiatric: Absent: anxiety, depression Endocrine: Absent: heat intolerance, polydipsia, polyuria Hematological/Lymphatic: Absent: easy bruising, lymphadenopathy Allergic/Immunologic: Absent: urticaria, itchy eyes Medical,Surgical,& Family Hx - Medical History Cardio: History of: CHF, CAD, Hypertension, PVD, Cardiovascular Problems ( lymphadema) No history of: [place] Psychological: History of: Anxiety Disorders No history of: ADHD, Behavior Problems, Bipolar Disorder, Depression, Previous Suicide Attempt, Psychiatric/Substance Abuse Tx, Schizophrenia, Violent Behavior, Psychiatric Problems HEENT: Comment Only: Eye Problem (wears glasses) Endocrine: History of: Diabetes Mellitus (NIDDM), Dyslipidemia No history of: Diabetes Mellitus (IDDM) Respiratory: History of: Bronchitis, COPD, Pulmonary Hypertension, Pneumonia Renal: History of: Renal Problems Genitourinary: History of: Recurring Urinary Tract Infections Hematology: History of: Anemia - Surgical History Reproductive Surgeries: Surgical HX of;: Section - Family History Family History: Reports;: Family Cancer, Family Diabetes, Family Heart Disease, Family Hypertension, Family Stroke - Social History Smoking Status: Never smoker Frequency of Alcohol Use: None Type of Drug Use: None Exam Vital Signs: Vital Signs Temperature 99.9 F H 04/19/17 20:51 Pulse Rate 84 04/19/17 20:51 Respiratory Rate 22 04/19/17 20:51 Blood Pressure 98/42 04/19/17 20:51 O2 Sat by Pulse Oximetry 95 04/19/17 20:51 - General Exam limited due to: ALOC - Head Head exam: Present: atraumatic, normocephalic - Eye Eye exam: Present: PERRL, EOMI - ENT ENT exam: Present: normal exam, normal oropharynx - Neck Neck exam: Present: normal inspection, full ROM - Chest Chest inspection: Present: normal inspection - Respiratory Respiratory exam: Present: normal lung sounds bilaterally - Cardiovascular Cardiovascular exam: Present: regular rate, normal rhythm - Abdominal Exam Abdominal exam: Present: soft, normal bowel sounds - Extremities Exam Extremities exam: Present: other (Massive lymphedema of both lower extremities with open but healing sores on each leg. The right leg feels hot when compared to the left leg.) - Back Exam Back exam: Present: normal inspection - Neurological Exam Neurological exam: Present: alert, oriented X3, CN II-XII intact - Psychiatric Psychiatric exam: Present: normal affect, normal mood - Skin Skin exam: Present: warm, dry, intact Course Course Narrative: The patient's history of teeth chattering chills and fever with a history of cellulitis of the lower extremities with open wounds makes it imperative that she be admitted to the hospital for intravenous fluids and intravenous antibiotics. She has an elevated white blood cell count and open ulcers in her lower extremities. Her right leg is very hot by comparison to the left leg. Because in the past she has deteriorated rapidly and because her blood pressure is relatively low at 95 systolic it seems prudent that she should be admitted to the hospital for intravenous antibiotics and fluid resuscitation. Results - Labs CBC & BMP: 04/19/17 22:04 Disposition Clinical Impression: Cellulitis of leg, Sepsis Disposition: Still a Patient Additional Instructions: The patient's history of teeth chattering chills and fever with a history of cellulitis of the lower extremities with open wounds makes it imperative that she be admitted to the hospital for intravenous fluids and intravenous antibiotics. She has an elevated white blood cell count and open ulcers in her lower extremities. Her right leg is very hot by comparison to the left leg. Because in the past she has deteriorated rapidly and because her blood pressure is relatively low at 95 systolic it seems prudent that she should be admitted to the hospital for intravenous antibiotics and fluid resuscitation.
[2017-04-19 22:21] LABS: Basophils % 0.1 % (0.0-0.8); Hematocrit 36.8 VOL% (35.7-47.0); Hemoglobin 11.8 GM/DL (12.0-16.0); Immature Granulocytes % 0.7 %; Immature Granulocytes Absolute 0.11 #; Lymphocytes # 0.6 10*3/uL (1.4-4.0); Lymphocytes % 3.5 % (21.3-54.2); Mean Corpuscular HGB Conc 32.1 GM/DL (32-36); Mean Corpuscular Hemoglobin 28 PG (27-34); Mean Corpuscular Volume 87.2 FL (87-102); Mean Platelet Volume 10.4 FL (9.6-12.0); Monocytes # 0.4 10*3/uL (0.11-0.8); Monocytes % 2.6 % (1.7-12.7); Neutrophils # 14.8 10*3/uL (1.4-7.4); Neutrophils % 93.1 % (38.7-73.9); Platelet Count 158 T/CUMM (130-400); Red Blood Count 4.22 MC/CUMM (3.8-5.5); Red Cell Distribution Width 15.4 % (9.3-17.3); White Blood Count 15.9 T/CUMM (4-12)
[2017-04-19 22:29] LABS: Apearance,Urine CLOUDY (Clear); Bacteria,Urine Many /HPF (Few); Bilirubin,Urine Negative (Negative); Blood, Urine Small mg/dL (Negative); Glucose,Urine (UA) Negative (Negative); Hyaline Casts,Urine 3 /LPF (0-3); Ketones,Urine 5 mg/dL (Negative); Nitrite,Urine Negative (Negative); Protein,Urine Negative; Squamous Epithelial Cell,Urine Occasional /HPF (0-10); Urine Color Amber (Yellow); Urine Specific Gravity 1.015 (1.001-1.035); WBC,Urine 24 /HPF (0-6)
[2017-04-19 22:40] LABS: Bilirubin,Total 0.5 MG/DL (0.2-1.0); Calcium 7.8 MG/DL (8.5-10.1); Osmolality,Calculated 282.7 MOS/KG (273-304); Potassium 3.8 MMOL/L (3.5-5.1); Total Protein 7.1 G/DL (6.4-8.3)
[2017-04-19 23:01] LABS: Band Neutrophils 8 % (0-10); Lymphocytes 3 % (20-55); Segmented Neutrophils 85 % (50-85); Total Cells Counted 100
[2017-04-19 23:03] LABS: Anisocytosis 1+; Platelet Estimate Adequate
[2017-04-19] MEDS ORDERED: VANCOMYCIN 1,000 MG VIAL ONE (23:13)
[2017-04-20] MEDS ORDERED: traZODone 50 MG TABLET PO PRN (00:16)
--- NOTE | 2017-04-20 00:21 | Hospitalist History & Physical ---
Assessment and Plan (1) [id number] kidney injury Status: Acute Assessment and plan: We will try to rehydrate the patient and see if the pain can come down some. The lowest creatinine noticed on the chart at least in the recent months is 1.5. Current Visit: Yes (2) SIRS (systemic inflammatory response syndrome) Status: Acute Assessment and plan: This most likely secondary to skin infection and I suspect bacteremias there. Because of acute on chronic kidney injury this is tending to admit sepsis. Needs to be verified. Lactic acid was normal Current Visit: Yes (3) Morbid obesity with BMI of 60.0-69.9, adult Status: Acute Current Visit: Yes (4) Cellulitis of leg Status: Acute Assessment and plan: Patient was given cefepime and vancomycin in the emergency room. We will continue antibiotic treatment with ceftriaxone 1 2 g IV daily and clindamycin 600 mg IV every 8 hours. Reassess the patient in the morning. Check antistreptolysin-O titer. For the outcome of the blood cultures from the legs as much as possible. Current Visit: Yes (5) DVT prophylaxis Status: Acute Assessment and plan: Use unfractionated heparin 5000 units subcu every 8 hours. Current Visit: Yes History of Present Illness Chief complaint: With ascending cellulitis high fevers general malaise History of present illness: Ms. Dwyer is a 61 year old female presented to the emergency room today with general malaise fevers 203 at home she says. Patient has had progressive increase of pain in the lower extremities which are chronic leg edema. She obviously she is developing cellulitis most on the left than the right. Patient has had these problems before. Look rather dry especially of the mucosae was evaluated. Patient is morbidly obese with good movement. Home Medications Medication Instructions Recorded Confirmed Type FLUoxetine [PROzac] 40 mg PO DAILY 06/12/16 04/19/17 History Allopurinol 200 mg PO DAILY 02/04/17 04/19/17 History Gabapentin Cap/Tab [Neurontin 100 mg PO BID 02/04/17 04/19/17 History Cap/Tab] Levothyroxine Tab [Synthroid Tab] 75 mcg PO DAILY 02/04/17 04/19/17 History Topiramate 25 mg PO BID 03/10/17 04/19/17 History buPROPion XL [Wellbutrin Xl] 150 mg PO DAILY 03/10/17 04/19/17 History Pantoprazole Tab [Protonix Tab] 40 mg PO DAILY tablet 03/13/17 04/19/17 Rx Skin Healing Oint (Aquaphor) 1 applic TOP DAILY applic 03/13/17 04/19/17 Rx [Aquaphor] traZODone [Desyrel] 25 mg PO BEDTIME PRN tablet 03/13/17 04/19/17 Rx Allergies Allergy/AdvReac Type Severity Reaction Status Date / Time No Known Allergies Allergy Verified 04/19/17 21:01 Medical,Surgical,& Family Hx - Medical History Cardio: History of: CHF, CAD, Hypertension, PVD, Cardiovascular Problems ( lymphadema) No history of: [place] Psychological: History of: Anxiety Disorders No history of: ADHD, Behavior Problems, Bipolar Disorder, Depression, Previous Suicide Attempt, Psychiatric/Substance Abuse Tx, Schizophrenia, Violent Behavior, Psychiatric Problems HEENT: Comment Only: Eye Problem (wears glasses) Endocrine: History of: Diabetes Mellitus (NIDDM), Dyslipidemia No history of: Diabetes Mellitus (IDDM) Respiratory: History of: Bronchitis, COPD, Pulmonary Hypertension, Pneumonia Renal: History of: Renal Problems Genitourinary: History of: Recurring Urinary Tract Infections Hematology: History of: Anemia - Surgical History Reproductive Surgeries: Surgical HX of;: Section - Family History Family History: Reports;: Family Cancer, Family Diabetes, Family Heart Disease, Family Hypertension, Family Stroke - Social History Smoking Status: Never smoker Frequency of Alcohol Use: None Type of Drug Use: None Review of systems: A 12 point system assessment was done. Patient is able to talk to me without any distress but looks rather tired. She is morbidly obese she has bilateral leg edema with a beginnings of elephantiasis. She has pain in the lower extremities stasis dermatitis and obvious cellulitis. Apart from this chief complaint history of presenting illness in the past medical history 12 point system assessment is unremarkable Exam - Constitutional Vitals: Period Temp Pulse Resp BP Sys/Miller Pulse Ox Last 24 Hr 98.7 F-99.9 F 76-84 16-24 98-109/42-59 95-98 General appearance: no acute distress, morbidly obese, other (Generalized malaise) - Head Head exam: Present: normocephalic, atraumatic - Eye Eye exam: Present: EOMI, other (No conjunctival petechia anicteric sclera no scleritis Harmony) Pupils: Present: KATIANA - ENT ENT exam: Present: normal oropharynx - Neck Neck exam: Present: other (Neck is showed supple no adenopathy no bruits) - Respiratory Respiratory exam: Present: other (Distant lung sounds. Patient has a large chest girth) - Cardiovascular Cardiovascular exam: Present: tachycardia, other (Noted regular rhythm was sinus control. Patient has a pulmonic murmur with a palpable pulmonic pulse denies shortness of breath denies any pleurisy) - GI/Abdominal GI/Abdominal exam: Present: normal bowel sounds, soft, other - Extremities Exam Extremities exam: Present: other (Limited mobility because of pain in lower extremity and the patient's body habitus) - Neurological Exam Neurological exam: Present: alert, oriented X3, CN II-XII intact - Psychiatric Psychiatric exam: Present: normal mood, other (Subdued affect but I think this due to acute illness) - Skin Skin exam: Present: other (Bilateral leg edema cellulitis most on the left and right differential warmth to the skin in the area of erythema) Results - Labs CBC & BMP: 04/19/17 22:04 04/19/17 22:04 Lab Results: I have reviewed the past 24 hour labs (Noted leukocytosis. Lactic acid was not elevated. Patient also has an creatinine of 1.9 today. There may be an element of dehydration. BUN is also elevated to 35. 2 sets of blood cultures were sent a UA does have bacteriuria but not severely inflamed.)
[2017-04-20 01:03] LABS: Free T4 (Free Thyroxine) 1.02 NG/DL (0.76-1.46); Thyroid Stimulating Hormone 0.674 uIU/ml (0.358-3.74)
[2017-04-20] MEDS: SODIUM CHLORIDE 0.9% 1,000 ML IV SCH ×3 (01:41→15:41)
[2017-04-20] MEDS: TOPIRAMATE 25 MG TABLET PO SCH ×3 (01:44→21:00)
[2017-04-20] MEDS: GABAPENTIN 100 MG CAPSULE PO SCH ×3 (01:46→20:59)
[2017-04-20] MEDS ORDERED: GLUCAGON 1 MG VIAL IM PRN (02:25)
[2017-04-20] MEDS ORDERED: DEXTROSE 50% 25 GM/50 ML SYRINGE IV PRN (02:25)
[2017-04-20] MEDS: CLINDAMYCIN INJ 600 MG in PREMIX 1 EACH IV SCH ×3 (04:10→21:01)
[2017-04-20] MEDS: ACETAMINOPHEN 325 MG TABLET PO PRN ×2 (05:27→13:49)
[2017-04-20] MEDS: cefTRIAXone 2,000 MG in SODIUM CHLORIDE 0.9% 100 ML IV SCH (05:28)
--- NOTE | 2017-04-20 08:39 | XRay Report ---
Portable chest April 19, 2017 2200 hours Indication: Shortness of breath Comparison images from March 13, 2017 Findings: Heart size is again enlarged. Perihilar interstitial and alveolar opacities with engorgement of the pulmonary vasculature. No effusions. No acute osseous abnormalities. Impression: Pulmonary edema PROCEDURE INTERPRETED AT [facility] DEPARTMENT OF RADIOLOGY Final Report Signed by: Patrick Man
[2017-04-20] MEDS: PANTOPRAZOLE 40 MG TABLET PO SCH (08:43)
[2017-04-20] MEDS: buPROPion XL 150 MG TABLET PO SCH (08:43)
[2017-04-20] MEDS: FLUoxetine 20 MG CAPSULE PO SCH (08:43)
[2017-04-20] MEDS: ALLOPURINOL 100 MG TABLET PO SCH (08:43)
[2017-04-20] MEDS: LEVOTHYROXINE 75 MCG TABLET PO SCH (08:43)
[2017-04-20] MEDS: glipiZIDE 5 MG TABLET PO SCH (08:44)
[2017-04-20] MEDS: INSULIN REGULAR 100 UNIT/ML SUBCUT SCH ×4 (08:46→22:19)
[2017-04-20] MEDS: SKIN HEALING OINT (AQUAPHOR) 50 GM TUBE TOP SCH (10:33)
[2017-04-21] MEDS: SODIUM CHLORIDE 0.9% 1,000 ML IV SCH ×5 (01:42→20:45)
[2017-04-21] MEDS: CLINDAMYCIN INJ 600 MG in PREMIX 1 EACH IV SCH ×3 (05:25→23:46)
[2017-04-21] MEDS: cefTRIAXone 2,000 MG in SODIUM CHLORIDE 0.9% 100 ML IV SCH (06:14)
[2017-04-21 07:12] LABS: Basophils % 0.4 % (0.0-0.8); Immature Granulocytes % 0.4 %; Immature Granulocytes Absolute 0.04 #; Lymphocytes # 1.5 10*3/uL (1.4-4.0); Lymphocytes % 16.2 % (21.3-54.2); Mean Corpuscular HGB Conc 32.3 GM/DL (32-36); Mean Corpuscular Hemoglobin 28 PG (27-34); Mean Corpuscular Volume 88.1 FL (87-102); Mean Platelet Volume 11.1 FL (9.6-12.0); Monocytes # 0.5 10*3/uL (0.11-0.8); Monocytes % 4.9 % (1.7-12.7); Neutrophils # 7.3 10*3/uL (1.4-7.4); Neutrophils % 78.1 % (38.7-73.9); Platelet Count 131 T/CUMM (130-400); Red Blood Count 3.52 MC/CUMM (3.8-5.5); Red Cell Distribution Width 15.9 % (9.3-17.3); White Blood Count 9.4 T/CUMM (4-12)
[2017-04-21 07:39] LABS: Band Neutrophils 10 % (0-10); Hypochromasia 1+; Lymphocytes 14 % (20-55); Microcytosis 1+; Segmented Neutrophils 75 % (50-85); Total Cells Counted 100
[2017-04-21 07:40] LABS: Ovalocytes Slight; Platelet Estimate Adequate
[2017-04-21 07:41] LABS: Calcium 7.7 MG/DL (8.5-10.1); Osmolality,Calculated 283.8 MOS/KG (273-304)
[2017-04-21] MEDS: GABAPENTIN 100 MG CAPSULE PO SCH ×2 (08:35→20:43)
[2017-04-21] MEDS: buPROPion XL 150 MG TABLET PO SCH (08:35)
[2017-04-21] MEDS: ALLOPURINOL 100 MG TABLET PO SCH (08:35)
[2017-04-21] MEDS: INSULIN REGULAR 100 UNIT/ML SUBCUT SCH ×4 (08:35→20:42)
[2017-04-21] MEDS: LEVOTHYROXINE 75 MCG TABLET PO SCH (08:35)
[2017-04-21] MEDS: FLUoxetine 20 MG CAPSULE PO SCH (08:35)
[2017-04-21] MEDS: PANTOPRAZOLE 40 MG TABLET PO SCH (08:35)
[2017-04-21] MEDS: TOPIRAMATE 25 MG TABLET PO SCH ×3 (08:35→20:43)
[2017-04-21] MEDS: glipiZIDE 5 MG TABLET PO SCH (08:35)
--- NOTE | 2017-04-21 10:55 | Hospitalist Progress Note ---
Assessment and Plan - Time spent with patient Time spent with patient: Less than 30 minutes (1) Chronic acquired lymphedema Status: Acute Assessment and plan: 61-year-old white female with history of depression, hypo-thyroidism, lymphedema bilateral lower extremities admitted by the hospitalist service on 04/20/2017 with fever and progressive pain of her lower extremities, along with acute on chronic renal failure. Dr. Gómez will see and examine patient further recommendations to follow. Nonhealing bilateral lower extremity wounds/chronic lymphedema/cellulitis-- patient's cellulitis seems to be improved and is very mild at this time. She has been afebrile since admission. Her CRP is elevated at 15.6. Patient does have a nonhealing wound on the posterior surface. Will consult Tangela the wound care nurse for appropriate wraps. Her white count is down to normal from 15.9 on admission. Depression/neuropathy/hypothyroidism--home meds have been restarted Acute on chronic kidney disease--patient's creatinine is increased to 2.2 from 1.9 on admission. Went ahead and bolused her 1 L of normal saline. We will recheck her labs in the morning. 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 Exam - Constitutional Vitals: Period Temp Pulse Resp BP Sys/Miller Pulse Ox Last 24 Hr 97.1 F-99.5 F 65-77 16-20 97-112/42-64 94-100 Exam: 61-year-old white female, no acute distress, alert oriented Chest clear CV regular rate and rhythm Abdomen obese, nontender Extremities +4 edema, no palpable pulses, cellulitis Results - Labs CBC & BMP: 04/21/17 06:38 04/21/17 06:38 Lab Results: I have reviewed the past 24 hour labs
[2017-04-21] MEDS ORDERED: SODIUM CHLORIDE 0.9% 1,000 ML IV ONE (10:56)
[2017-04-21] MEDS ORDERED: CEFTAROLINE 600 MG in SODIUM CHLORIDE 0.9% 100 ML IV SCH (11:00)
[2017-04-21] MEDS ORDERED: diphenhydrAMINE 50 MG/1 ML VIAL IV ONE (16:00)
[2017-04-21] MEDS: SKIN HEALING OINT (AQUAPHOR) 50 GM TUBE TOP SCH (16:31)
[2017-04-21] MEDS: GENTAMICIN 0.1% CREAM 15 GM TUBE TOP SCH (16:31)
[2017-04-22 08:34] LABS: Basophils % 0.4 % (0.0-0.8); Hematocrit 29.1 VOL% (35.7-47.0); Hemoglobin 9.4 GM/DL (12.0-16.0); Immature Granulocytes % 0.2 %; Immature Granulocytes Absolute 0.01 #; Lymphocytes # 1.4 10*3/uL (1.4-4.0); Lymphocytes % 25.5 % (21.3-54.2); Mean Corpuscular HGB Conc 32.3 GM/DL (32-36); Mean Corpuscular Hemoglobin 29 PG (27-34); Mean Corpuscular Volume 88.4 FL (87-102); Monocytes # 0.4 10*3/uL (0.11-0.8); Neutrophils # 3.6 10*3/uL (1.4-7.4); Neutrophils % 66.9 % (38.7-73.9); Platelet Count 129 T/CUMM (130-400); Red Blood Count 3.29 MC/CUMM (3.8-5.5); White Blood Count 5.4 T/CUMM (4-12)
[2017-04-22 09:02] LABS: Calcium 7.9 MG/DL (8.5-10.1); Magnesium 2.1 MG/DL (1.8-2.4); Osmolality,Calculated 287.4 MOS/KG (273-304); Potassium 4.3 MMOL/L (3.5-5.1)
[2017-04-22] MEDS: glipiZIDE 5 MG TABLET PO SCH (09:05)
[2017-04-22] MEDS: SODIUM CHLORIDE 0.9% 1,000 ML IV SCH ×2 (09:08→12:50)
[2017-04-22] MEDS: INSULIN REGULAR 100 UNIT/ML SUBCUT SCH ×2 (09:09→12:13)
[2017-04-22] MEDS: CLINDAMYCIN INJ 600 MG in PREMIX 1 EACH IV SCH (09:09)
--- NOTE | 2017-04-22 09:26 | Discharge Summary ---
Hospital Course - Hospital Course Hospital Course: 61-year-old white female with history of depression, hypothyroidism, lymphedema bilateral lower extremities admitted by the hospitalist service on 04/20/2017 with fever and progressive pain of her lower extremities along with acute on chronic renal failure. Patient's cellulitis is improved and her white count is normal and she has been afebrile since admission. Wound care has seen her and recommended wound care orders. Patient follows up with Dr. Fernandes in the wound center so we will make sure she has a follow-up appointment with him. Patient' s kidney function is down to 1.9 which is most likely her baseline. She is feeling much better and ready for discharge. We will send her home with 1 week' s worth of clindamycin this seems to be working well for her cellulitis. She will need to follow-up with Dr. Haque in his office in 2-3 weeks. Complete discharge instructions were given to the patient. Care coordination, chart review, and completed discharge paperwork took approximately 38 minutes.` - Time spent with patient Time with patient DS: Greater than 30 minutes Diagnosis - Discharge Diagnosis (1) Chronic acquired lymphedema Status: Chronic (2) Diabetes Status: Chronic (3) Morbid obesity Status: Chronic (4) Physical deconditioning Status: Chronic (5) Type 2 diabetes mellitus Status: Chronic (6) Hypertension Status: Chronic (7) Non-healing wound of lower extremity Status: Chronic (8) Acute renal failure Status: Resolved Discharge Plan - Discharge Data Disposition: Home Health Service Condition at Discharge: Stable Discharge Diet: advance to your usual diet Activity: resume usual activities as tolerated Contact your physician if you experience:: fever over 101, Redness or swelling Wound / Dressing Care Instructions: BLE calves. wash with hibiclens. rinse well with saline. apply gentamycin cream to wound bed. apply purachol AG to wound bed. cover with large optifoam - Discharge Medications New Clindamycin Cap [Cleocin Cap] 600 mg PO QID #28 capsule Gentamicin 0.1% Cream [Garamycin 0.1% Cream] 1 applic TOP DAILY #1 applic HYDROcodone/ACETAMIN 7.5-325 [[place] 7.5-325] 1 tablet PO Q4H PRN #20 tablet PRN Reason: Pain Moderate (4-7) Continue FLUoxetine [PROzac] 40 mg PO DAILY Levothyroxine Tab [Synthroid Tab] 75 mcg PO DAILY Gabapentin Cap/Tab [Neurontin Cap/Tab] 100 mg PO BID buPROPion XL [Wellbutrin Xl] 150 mg PO DAILY Skin Healing Oint (Aquaphor) [Aquaphor] 1 applic TOP DAILY applic traZODone [Desyrel] 25 mg PO BEDTIME PRN tablet PRN Reason: Insomnia Allopurinol 200 mg PO DAILY Topiramate 25 mg PO BID Pantoprazole Tab [Protonix Tab] 40 mg PO DAILY tablet glipiZIDE [Glipizide] 5 mg PO AC - Follow Up or Referral Follow Up: Ac Haque MD [Physician] - 2 Weeks Juwan Fernandes MD [Physician] - 1 Week (make sure she has appt at wound center) - Forms/Instructions Exam - Constitutional Vitals: Period Temp Pulse Resp BP Sys/Miller Pulse Ox Last 24 Hr 97.1 F-98.1 F 66-75 18-20 97-147/46-66 94-99 Exam: 61-year-old white female, no acute distress, alert and oriented Chest clear CV regular rate and rhythm Abdomen obese, nontender Extremities with bilateral chronic lymphedema Discharge Results Procedures and tests throughout hospitalization: Pending Orders 04/19/17 22:21 Blood Culture Stat 04/20/17 Antistrep-O Titer,Serum Routine 04/21/17 06:38 Procalcitonin, S IN AM Labs on day of discharge: Labs from last 24 hours 04/22/17 04/22/17 04/22/17 08:13 08:13 06:55 WBC 5.4 D RBC 3.29 L Hgb 9.4 L Hct 29.1 L MCV 88.4 MCH 29 MCHC 32.3 RDW 16.0 Plt Count 129 L MPV 11.0 Neut % (Auto) 66.9 Lymph % (Auto) 25.5 Bladen % (Auto) 7.0 Eos % (Auto) 0.0 Baso % (Auto) 0.4 Neut # (Auto) 3.6 Lymph # (Auto) 1.4 Bladen # (Auto) 0.4 Eos # (Auto) 0.0 Baso # (Auto) 0.0 Immature Gran % 0.2 Nucleated RBC % 0.0 Immature Gran # 0.01 Nucleated RBCs # 0.00 Immature Plt Fraction 0.0 Sodium 140 Potassium 4.3 Chloride 111 H Carbon Dioxide 24 Anion Gap 9.3 BUN 39 H Creatinine 1.90 H GFR Calculation 44 BUN/Creatinine Ratio 20.00 Glucose 103 POC Glucose 96 Calculated Osmolality 287.4 Calcium 7.9 L Magnesium 2.1 04/21/17 04/21/17 04/21/17 19:03 17:18 15:56 WBC RBC Hgb Hct MCV MCH MCHC RDW Plt Count MPV Neut % (Auto) Lymph % (Auto) Bladen % (Auto) Eos % (Auto) Baso % (Auto) Neut # (Auto) Lymph # (Auto) Bladen # (Auto) Eos # (Auto) Baso # (Auto) Immature Gran % Nucleated RBC % Immature Gran # Nucleated RBCs # Immature Plt Fraction Sodium Potassium Chloride Carbon Dioxide Anion Gap BUN Creatinine GFR Calculation BUN/Creatinine Ratio Glucose POC Glucose 94 92 61 L Calculated Osmolality Calcium Magnesium 04/21/17 12:03 WBC RBC Hgb Hct MCV MCH MCHC RDW Plt Count MPV Neut % (Auto) Lymph % (Auto) Bladen % (Auto) Eos % (Auto) Baso % (Auto) Neut # (Auto) Lymph # (Auto) Bladen # (Auto) Eos # (Auto) Baso # (Auto) Immature Gran % Nucleated RBC % Immature Gran # Nucleated RBCs # Immature Plt Fraction Sodium Potassium Chloride Carbon Dioxide Anion Gap BUN Creatinine GFR Calculation BUN/Creatinine Ratio Glucose POC Glucose 97 Calculated Osmolality Calcium Magnesium Preliminary micro results at discharge 04/19/17 22:21 Blood Culture - Preliminary Blood No growth at 1 day 04/19/17 22:04 Blood Culture - Preliminary Blood No growth at 1 day DS: Provider Date of admission: 04/20/17 00:08 Primary care physician: . No PCP Attending physician on admission: Estuardo Mcclendon MD Consults: 04/21/17 10:53 Consult to Wound Care - [place] [CONS] Routine Reason for Wound Care: Wound Care Management Consult Comment: bilateral LE wounds, elephantitis 04/21/17 12:42 Consult to Physical Therapy [CONS] Routine Reason for Physical Therapy: Weakness Ambulation Evaluate and Treat Consult Comment: bring walker needs a man pt Discharging clinician: QUINTEN Cano Expected date of discharge: 04/22/17
[2017-04-22] MEDS: GABAPENTIN 100 MG CAPSULE PO SCH (10:37)
[2017-04-22] MEDS: PANTOPRAZOLE 40 MG TABLET PO SCH (10:38)
[2017-04-22] MEDS: FLUoxetine 20 MG CAPSULE PO SCH (10:38)
[2017-04-22] MEDS: LEVOTHYROXINE 75 MCG TABLET PO SCH (10:39)
[2017-04-22] MEDS: TOPIRAMATE 25 MG TABLET PO SCH (10:40)
[2017-04-22] MEDS: ALLOPURINOL 100 MG TABLET PO SCH (10:42)
[2017-04-22] MEDS: buPROPion XL 150 MG TABLET PO SCH (10:42)
[2017-04-22] MEDS: SKIN HEALING OINT (AQUAPHOR) 50 GM TUBE TOP SCH (12:12)
[2017-04-22] MEDS: GENTAMICIN 0.1% CREAM 15 GM TUBE TOP SCH (12:12)
[2017-04-22 13:05] VITALS: BP 104/57
--- NOTE | 2017-05-04 08:33 | Physician Query Form ---
CLICK EDIT DOCUMENT TO SELECT QUERY ANSWER --> OK --> SIGN Raysa Chavez RN Clinical Gear Cutting Machine Set Up Operator W) [phone] (f) [phone] [email or web address] PROVIDERS: Make your selection(s) from the choices in EACH section by typing an "x" and enter comments in the comment section. Please use your independent medical judgment in providing your response. This request does not imply that any particular answer is desired or expected. CLINICAL INDICATORS: (Providers should not edit this section) Based on documentation of "Acute Cellulitis" "Type 2 diabetes mellitus with other skin complications" Treated with IV Antibiotics and discharged on PO antibiotics. Based on the above, could you clarify the appropriate diagnosis, if significant , that supports the above abnormalities and additional evaluation, monitoring, and/or treatment rendered: ( ) Cellulitis due to diabetes (x ) Cellulitis not due to diabetes ( ) Other, please specify: ( ) Clinically unable to determine COMMENTS: PLEASE ALSO DOCUMENT RESPONSE IN PROGRESS NOTES AND/OR DISCHARGE SUMMARY Use of terms such as suspected, likely, or probable (associated with a specific diagnosis that is being evaluated, monitored, or treated as if it exists) are acceptable and can be restated in the discharge summary if not ruled out. [facility]
--- NOTE | 2017-05-04 09:05 | Physician Query Form ---
CLICK EDIT DOCUMENT TO SELECT QUERY ANSWER --> OK --> SIGN Raysa Chavez RN Clinical [employer] Account Manager W) [phone] (f) [phone] [email or web address]: Make your selection(s) from the choices in EACH section by typing an "x" and enter comments in the comment section. Please use your independent medical judgment in providing your response. This request does not imply that any particular answer is desired or expected. CLINICAL INDICATORS: (Providers should not edit this section) Based on documentation of "Sepsis" "Acute on chronic renal failure" "Acute SIRS" "Non-healing wound of lower extremity Type 2 diabetes mellitus with other skin complications" "Acute cellulitis" WBC of 15.9, Temp of 101.7, BP of 98/42. Treated with NS bolus, IV Maxipime, IV Vancomycin, and IV Cleocin. Gentamicin Cream applied. Please clarify which, if any, of the following is the etiology of the above symptoms and treatment rendered: ( ) Sepsis due to a localized infection, please specify infection: ( ) Severe Sepsis (sepsis with acute organ failure) - Please specify type acute organ failure: ( x) Septic Shock (severe sepsis with hypotension) ( ) SIRS of noninfectious origin ( ) Sepsis due to a device, implant or graft, please specify: ( ) Localized infection only, without systemic illness, please specify infection : ( ) Bacteremia (abnormal lab finding only, does not indicate systemic illness) ( ) Other condition, please specify: ( ) Clinically unable to determine Criteria for Sepsis (SIRS due to an infection) should be based on 2 or more of the following being present: Temperature > 101F or < 96.8F WBC > 12,000 or < 4,000, or > 10% bands Tachycardia HR > 90 beats/minute Tachypnea RR > 20 breaths/minute or PaCO2 > 32mmHg Lactate level > 2.0 mmol/L (>4 is equivalent to severe sepsis) Altered Mental Status Mottling of skin or prolonged capillary refill Non-diabetic hyperglycemia (blood sugar >120 mg/dl) Other evidence of acute organ failure associated with sepsis ( severe sepsis) COMMENTS: PLEASE ALSO DOCUMENT RESPONSE IN PROGRESS NOTES AND/OR DISCHARGE SUMMARY Use of terms such as suspected, likely, or probable (associated with a specific diagnosis that is being evaluated, monitored, or treated as if it exists) are acceptable and can be restated in the discharge summary if not ruled out. MTDD
== END 2017-04-22 13:15 | disposition home health service (06) | DRG 871 ==
LOC: EDBD → EDUNIT# → N.ED 20:51 → SUATTDRO 04-20 00:08 → N.EDINP 04-20 00:08 → N.5E 04-20 00:37
PROVIDERS: ADMIT Internal Medicine Infectious Disease; ATTEND Hospitalist

== ENCOUNTER 2017-05-12 19:19 | Inpatient (IN) ==
[2017-05-12 20:35] LABS: Basophils % 0.4 % (0.0-0.8); Hematocrit 28.8 VOL% (35.7-47.0); Hemoglobin 9.5 GM/DL (12.0-16.0); Immature Granulocytes % 0.9 %; Lymphocytes # 1.6 10*3/uL (1.4-4.0); Lymphocytes % 22.4 % (21.3-54.2); Mean Corpuscular Hemoglobin 29 PG (27-34); Mean Platelet Volume 9.6 FL (9.6-12.0); Monocytes % 9.7 % (1.7-12.7); Neutrophils # 4.6 10*3/uL (1.4-7.4); Neutrophils % 66.6 % (38.7-73.9); Platelet Count 201 T/CUMM (130-400); Red Blood Count 3.31 MC/CUMM (3.8-5.5); Red Cell Distribution Width 15.4 % (9.3-17.3); White Blood Count 6.9 T/CUMM (4-12)
[2017-05-12 20:36] LABS: Immature Granulocytes Absolute 0.06 #; Monocytes # 0.7 10*3/uL (0.11-0.8)
[2017-05-12 20:55] LABS: Osmolality,Calculated 295.1 MOS/KG (273-304); Potassium 4.4 MMOL/L (3.5-5.1)
--- NOTE | 2017-05-12 21:31 | Emergency Department Note ---
Arrival - Arrival Chief Complaint: Extremity Problem Stated Complaint: Lower extremity cellulitis ED Nursing Triage Note: C/O Swelling/redness to bilateral legs- left worse than the right with +weeping wounds. Pt reports this happens often and Dr. Fernandes takes care of wound care on her- Pt reports calling Dr. Bonilla office and was told to come in to be seen. Mode of Arrival: Stretcher Limitations: No Limitations Source: Patient Time Seen by Provider: 05/12/17 20:04 - History of Present Illness HPI Narrative: The patient complains of increased pain, swelling and redness to both lower legs , left worse than right for the past 2 days. She has a history of severe lymphedema and has frequent episodes of cellulitis and chronic wounds on her legs. Her legs around the wounds have begun weeping. She sees Dr. Fernandes for wound care. She called his office today and was told to come to the ER to be seen. She says she has been running a fever up to 101.2. She denies any other recent illness or symptoms. Date of Last Menstrual Period: PM Allergies/Adverse Reactions: Allergies Allergy/AdvReac Type Severity Reaction Status Date / Time ceftaroline fosamil Allergy ITCHING Verified 04/21/17 15:50 [From Teflaro] Home Medications: Home Medications Medication Instructions Recorded Confirmed Type FLUoxetine [PROzac] 40 mg PO DAILY 06/12/16 05/12/17 History Allopurinol 200 mg PO DAILY 02/04/17 05/12/17 History Gabapentin Cap/Tab [Neurontin 100 mg PO BID 02/04/17 05/12/17 History Cap/Tab] Levothyroxine Tab [Synthroid Tab] 75 mcg PO DAILY 02/04/17 05/12/17 History Topiramate 25 mg PO BID 03/10/17 05/12/17 History buPROPion XL [Wellbutrin Xl] 150 mg PO DAILY 03/10/17 05/12/17 History Pantoprazole Tab [Protonix Tab] 40 mg PO DAILY tablet 03/13/17 05/12/17 Rx Skin Healing Oint (Aquaphor) 1 applic TOP DAILY applic 03/13/17 05/12/17 Rx [Aquaphor] traZODone [Desyrel] 25 mg PO BEDTIME PRN tablet 03/13/17 05/12/17 Rx glipiZIDE [Glipizide] 5 mg PO AC 04/20/17 05/12/17 History Clindamycin Cap [Cleocin Cap] 600 mg PO QID #28 capsule 04/22/17 05/12/17 Rx Gentamicin 0.1% Cream [Garamycin 1 applic TOP DAILY #1 applic 04/22/17 05/12/17 Rx 0.1% Cream] HYDROcodone/ACETAMIN 7.5-325 1 tablet PO Q4H PRN #20 tablet 04/22/17 05/12/17 Rx [[place] 7.5-325] Review of System - Review of System 12 point system: reviewed and no additional remarkable complaints except as stated - Review of System Constitutional: Present: fever. Absent: diaphoresis Head/Ears/Nose/Throat: Absent: nasal drainage, sore throat Respiratory: Absent: cough Cardiovascular: Absent: chest pain Gastrointestinal: Absent: abdominal pain, nausea, vomiting Genitourinary female: Absent: dysuria Musculoskeletal: Present: leg pain Skin: Present: change in color Medical,Surgical,& Family Hx - Medical History Cardio: History of: CHF, CAD, Hypertension, PVD, Cardiovascular Problems ( lymphadema) No history of: [place] Psychological: History of: Anxiety Disorders No history of: ADHD, Behavior Problems, Bipolar Disorder, Depression, Previous Suicide Attempt, Psychiatric/Substance Abuse Tx, Schizophrenia, Violent Behavior, Psychiatric Problems HEENT: Comment Only: Eye Problem (wears glasses) Endocrine: History of: Diabetes Mellitus (NIDDM), Dyslipidemia No history of: Diabetes Mellitus (IDDM) Respiratory: History of: Bronchitis, COPD, Pulmonary Hypertension, Pneumonia Renal: History of: Renal Problems Genitourinary: History of: Recurring Urinary Tract Infections Hematology: History of: Anemia Other: History of: Skin Problems (Lymphedema, cellulitis) - Surgical History Reproductive Surgeries: Surgical HX of;: Section - Family History Family History: Reports;: Family Cancer, Family Diabetes, Family Heart Disease, Family Hypertension, Family Stroke - Social History Smoking Status: Never smoker Frequency of Alcohol Use: None Type of Drug Use: None Exam Physical Examination: GENERAL: Alert. No acute distress. Morbidly obese. HEENT: Normocephalic and atraumatic. There is no nasal drainage. No pharyngeal erythema or exudate. NECK: Normal inspection. Supple. No lymphadenopathy or meningismus. LUNGS: No respiratory distress. Clear to auscultation bilaterally, no wheezes, rales or rhonchi. HEART: Regular rate and rhythm. 3 out of 6 systolic murmur. ABDOMEN: Soft, nontender and nondistended with normoactive bowel sounds. Morbidly obese. BACK: Normal inspection. SKIN: Color normal. Warm and dry. EXTREMITIES: Moderate tenderness of the lower legs bilaterally. The patient has massive lymphedema. There is erythema to the upper tibias bilaterally. Both legs have open wounds on the posterior lower calves with black eschar. No active drainage. There is some weeping of clear fluid around these wounds. NEUROLOGICAL/PSYCHIATRIC: Alert and oriented -3 with normal mood and affect. Cranial nerves normal. No motor or sensory deficit. Vital Signs: Vital Signs Temperature 99.0 F 05/12/17 19:24 Pulse Rate 90 05/12/17 19:24 Respiratory Rate 20 05/12/17 19:24 Blood Pressure 141/94 05/12/17 19:24 O2 Sat by Pulse Oximetry 95 05/12/17 19:24 Course - Reevaluation(s) Reevaluation #1: I discussed patient with Dr. Ge. Was informed that Dr. Fernandes takes his own patients on the weekdays. I discussed the patient with Dr. Fernandes who recommended admission to the hospitalist. I discussed the patient with the hospitalist who will see the patient and admit. Time: 21:37 Results - Labs CBC & BMP: 05/12/17 20:21 05/12/17 20:21 Lab Results: I have reviewed the patients labs Disposition Clinical Impression: Cellulitis, Lymphedema of both lower extremities, Non-healing wound of lower extremity Case discussed with: patient Disposition: Still a Patient Condition: Stable Time of Disposition: 21:37
--- NOTE | 2017-05-12 23:08 | Hospitalist History & Physical ---
Assessment and Plan - Time spent with patient Time spent with patient: Less than 30 minutes (1) Cellulitis Status: Acute Assessment and plan: Will start patient on Vancomycin 1gram q12 hours Reviewed previous c/s Pending blood and urine cultures Will consult wound care for decubitus ulcers Will consult Dr. Fernandes Pain meds PRN Keep legs elevated Will hold Lasix for now due to Creatinine Current Visit: Yes (2) Lymphedema of both lower extremities Status: Chronic Current Visit: Yes (3) Chronic kidney disease Status: Chronic Assessment and plan: Creatinine today 1.70 Lowest recorded creatinine was 1.25 This is probably patient's baseline but will trend Current Visit: No (4) Decubitus skin ulcer Status: Chronic Current Visit: No Qualifiers: Pressure ulcer location: calf Pressure ulcer stage: stage 2 (5) Diabetes Status: Chronic Assessment and plan: Glucose today 177 Patient states she has not been taking her Glipizide due to episodes of hypoglycemia Will start on SSI and accuchecks Current Visit: No Qualifiers: Diabetes mellitus type: type 2 Chronic kidney disease stage: stage 5, not on chronic dialysis (6) Morbid obesity Status: Chronic Current Visit: No (7) Physical deconditioning Status: Chronic Current Visit: No History of Present Illness Chief complaint: bilateral leg pain and swelling History of present illness: Called to the ER for Ms. Dwyer who is a 61 year old female that presented to the ER for a 6 day history of leg swelling. Patient has a history of lymphedema and cellulitis to both legs. She is currently a patient of Dr. Gomes. Over the past 6 days she has had increased swelling and redness. She states she had one episode of chills but did not think she was running fever. She denies any chest pain, shortness of breath, fatigue, dizziness, coughing, and falling. She states that home health came and saw her Thursday and recommended her to see Dr. Fernandes. Dr. Fernandes's nurse informed her to come to the ER to be evaluated. She has 2 sores to the posterior aspect of her calves. She states that they have increased in clear drainage. Dr. Fernandes recommended for her to wear [place] wraps. She has been unable to wear these wraps due to the size of her legs. In the ER she received a Faustin catheter and blood cultures. During the month of April, her blood cultures showed no growth. In February and March, she grew out S. epidermidis, pseudomonas aeruginos, proteus mirabilis, S. haemolyticus. Collaboratively, these organisms have multiple resistance factors to many antibiotics. 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 She will be admitted into inpatient, wound consultation and surgical consultation. We will start her on vancomycin 1 g every 12 hours due to the past history of susceptibility to previous organisms. We will await pending blood culture results and change if necessary. We will withhold Lasix at the moment due to her elevated creatinine. Her home medications were restarted as appropriate. Home Medications Medication Instructions Recorded Confirmed Type FLUoxetine [PROzac] 40 mg PO DAILY 06/12/16 05/12/17 History Allopurinol 200 mg PO DAILY 02/04/17 05/12/17 History Gabapentin Cap/Tab [Neurontin 100 mg PO BID 02/04/17 05/12/17 History Cap/Tab] Levothyroxine Tab [Synthroid Tab] 75 mcg PO DAILY 02/04/17 05/12/17 History Topiramate 25 mg PO BID 03/10/17 05/12/17 History buPROPion XL [Wellbutrin Xl] 150 mg PO DAILY 03/10/17 05/12/17 History Pantoprazole Tab [Protonix Tab] 40 mg PO DAILY tablet 03/13/17 05/12/17 Rx Skin Healing Oint (Aquaphor) 1 applic TOP DAILY applic 03/13/17 05/12/17 Rx [Aquaphor] traZODone [Desyrel] 25 mg PO BEDTIME PRN tablet 03/13/17 05/12/17 Rx glipiZIDE [Glipizide] 5 mg PO AC 04/20/17 05/12/17 History Clindamycin Cap [Cleocin Cap] 600 mg PO QID #28 capsule 04/22/17 05/12/17 Rx Gentamicin 0.1% Cream [Garamycin 1 applic TOP DAILY #1 applic 04/22/17 05/12/17 Rx 0.1% Cream] HYDROcodone/ACETAMIN 7.5-325 1 tablet PO Q4H PRN #20 tablet 04/22/17 05/12/17 Rx [[place] 7.5-325] Allergies Allergy/AdvReac Type Severity Reaction Status Date / Time ceftaroline fosamil Allergy ITCHING Verified 04/21/17 15:50 [From Teflaro] Medical,Surgical,& Family Hx - Medical History Cardio: History of: CHF, CAD, Hypertension, PVD, Cardiovascular Problems ( lymphadema) No history of: [place] Psychological: History of: Anxiety Disorders No history of: ADHD, Behavior Problems, Bipolar Disorder, Depression, Previous Suicide Attempt, Psychiatric/Substance Abuse Tx, Schizophrenia, Violent Behavior, Psychiatric Problems Neurology: No history of: Migraine, Seizures, TIA HEENT: Comment Only: Eye Problem (wears glasses) Endocrine: History of: Diabetes Mellitus (NIDDM), Dyslipidemia No history of: Diabetes Mellitus (IDDM) Respiratory: History of: Bronchitis, COPD, Pulmonary Hypertension, Pneumonia Renal: History of: Renal Problems Genitourinary: History of: Recurring Urinary Tract Infections Other: History of: Skin Problems (Lymphedema, cellulitis) - Surgical History HEENT Surgeries: Surgical HX of: Eye Surgery (detached retina), Tonsilectomy & Adenoidectomy Reproductive Surgeries: Surgical HX of;: Section, Tubal Ligation - Family History Family History: Reports;: Family Cancer, Family Diabetes, Family Heart Disease, Family Hypertension, Family Stroke - Social History Smoking Status: Never smoker Frequency of Alcohol Use: None Type of Drug Use: None Marital Status: Lives With:: Significant Other Functional capacity: independent ambulation - Constitutional Constitutional: Present: chills, fever(s). Absent: anorexia, fatigue, weakness - Cardiovascular Cardiovascular: Absent: chest pain at rest, chest pain with activity, diaphoresis, dyspnea, edema, palpitations - Respiratory Respiratory: Absent: cough, hemoptysis - Gastrointestinal Gastrointestinal: Absent: abdominal pain, change in bowel habits, diarrhea, nausea, vomiting - Genitourinary Genitourinary: Absent: urinary frequency, urinary hesitancy - Musculoskeletal Musculoskeletal: Present: other (Increased heat and swelling to bilateral lower extremities) - Neurological Neurological: Absent: frequent falls, syncope - Psychiatric Psychiatric: Absent: panic attacks - Endocrine Endocrine: Absent: cold intolerance, fatigue - Hematologic/Lymphatic Hematologic/Lymphatic: Absent: easy bleeding Exam - Constitutional Vitals: Period Temp Pulse Resp BP Sys/Miller Pulse Ox Last 24 Hr 99.0 F-99.0 F 80-90 18-20 107-141/49-94 94-96 General appearance: no acute distress, morbidly obese - Head Head exam: Present: normal inspection, normocephalic - Eye Eye exam: Present: EOMI Pupils: Present: KATIANA, normal accommodation - ENT ENT exam: Present: normal exam - Neck Neck exam: Present: normal inspection - Respiratory Respiratory exam: Present: clear to auscultation bilaterally. Absent: accessory muscle use (Respirations even and non-labored with symmetrical rise and fall of chest noted) - Cardiovascular Cardiovascular exam: Present: regular rate and rhythm. Absent: diastolic murmur , systolic murmur - GI/Abdominal GI/Abdominal exam: Present: normal bowel sounds, soft. Absent: firm, tenderness - Extremities Exam Extremities exam: Present: edema, other (Chronic lymphedema and cellulitis to bilateral lower extremities from mid thighs to feet. Positive PMS. ) - Neurological Exam Neurological exam: Present: alert, oriented X3 (Answers all questions appropriately. Makes good eye contact. ) - Psychiatric Psychiatric exam: Present: normal affect - Skin Skin exam: Present: warm, dry, other (Open sores to bilateral posterior calves) Results - Labs CBC & BMP: 05/12/17 20:21 05/12/17 20:21 Lab Results: I have reviewed the past 24 hour labs
[2017-05-12] MEDS ORDERED: ONDANSETRON 4 MG/2 ML VIAL IV PRN (23:29)
[2017-05-12] MEDS ORDERED: DEXTROSE 50% 25 GM/50 ML SYRINGE IV PRN (23:29)
[2017-05-12] MEDS ORDERED: ACETAMINOPHEN 325 MG TABLET PO PRN (23:29)
[2017-05-12] MEDS ORDERED: DEXTROSE 50% 25 GM/50 ML VIAL IV PRN (23:29)
[2017-05-12] MEDS ORDERED: GLUCAGON 1 MG VIAL IM PRN ×2 (23:29)
[2017-05-13] MEDS ORDERED: PIPERACILLIN/TAZOBACTAM 3,375 MG in SODIUM CHLORIDE 0.9% 100 ML IV SCH (00:30)
[2017-05-13] MEDS: INSULIN LISPRO 100 UNIT/ML SUBCUT SCH ×5 (00:40→21:14)
[2017-05-13] MEDS ORDERED: diphenhydrAMINE 50 MG/1 ML VIAL IV PRN (01:14)
[2017-05-13] MEDS: VANCOMYCIN INJ 1,000 MG in SODIUM CHLORIDE 0.9% 250 ML IV SCH ×2 (01:24→08:12)
[2017-05-13] MEDS: ALLOPURINOL 100 MG TABLET PO SCH (08:11)
[2017-05-13] MEDS: FLUoxetine 20 MG CAPSULE PO SCH (08:11)
[2017-05-13] MEDS: glipiZIDE 5 MG TABLET PO SCH ×2 (08:11→13:06)
[2017-05-13] MEDS: ENOXAPARIN 40 MG/0.4 ML SYRINGE SUBCUT SCH (08:12)
[2017-05-13] MEDS: buPROPion XL 150 MG TABLET PO SCH (08:12)
[2017-05-13] MEDS: TOPIRAMATE 25 MG TABLET PO SCH ×3 (08:12→21:11)
[2017-05-13] MEDS: DOCUSATE SODIUM 100 MG CAPSULE PO SCH ×2 (08:12→21:10)
[2017-05-13] MEDS: LEVOTHYROXINE 75 MCG TABLET PO SCH (08:12)
[2017-05-13] MEDS: PANTOPRAZOLE 40 MG TABLET PO SCH (08:12)
[2017-05-13] MEDS: GABAPENTIN 100 MG CAPSULE PO SCH ×2 (08:13→21:10)
[2017-05-13] MEDS ORDERED: SKIN HEALING OINT (AQUAPHOR) 50 GM TUBE TOP PRN (08:48)
[2017-05-13] MEDS ORDERED: CHLORHEXIDINE 4% SOLN 118 ML BOTTLE TOP ONE (08:48)
--- NOTE | 2017-05-13 09:57 | General Surgery Consult Note ---
Assessment and Plan - Time spent with patient Time spent with patient: Less than 30 minutes (1) Lymphedema of both lower extremities Status: Chronic Assessment and plan: Impression: Chronic lymphedematous and venous stasis changes of both lower extremities Plan: Good compressive therapy Current Visit: Yes (2) Cellulitis Status: Resolved Assessment and plan: Impression: Cellulitis of both lower extremities around the lateral and anterior portion of the legs may be partially related to dependency Plan: IV antibiotics Current Visit: No Qualifiers: Site of cellulitis of extremity: lower extremity (3) Ulcer Status: Acute Assessment and plan: Impression: Bilateral calf ulcerations secondary to venous stasis disease and possible pressure changes Plan: Local wound care plus the antibiotics and compressive therapy. Current Visit: No (4) Morbid obesity Status: Chronic Assessment and plan: Impression: Morbid obesity Plan: Medical management Current Visit: No (5) Diabetes Status: Chronic Assessment and plan: Impression: Diabetes adult onset. Plan: Medical management Current Visit: No Qualifiers: Diabetes mellitus type: type 2 Chronic kidney disease stage: stage 5, not on chronic dialysis History of Present Illness Chief complaint: Lymphedematous changes lower extremities with ulceration History of present illness: Ms. Dwyer is a 61 year old female white female who has morbid obesity and has significant swelling of the lower extremities due either to chronic venous stasis disease or lymphedematous changes in both lower extremities. She was admitted with a cellulitis of the legs with erythematous changes around it and new ulcerations on the lateral aspect of both mid calf areas. She had these almost similar ulcers before that we healed up completely when she was a [facility] with good control of her swelling with fair wraps in place. As expected she probably was up on the legs good bit holding them down to the point that she gets such edema that she could not get the fair wraps own. She eventually developed these ulcers which are in reality probably pressure wounds as much as anything else. She is back at this time will start some local wound care and some compressive therapy and see if we get things back under control at this time. Home Medications Medication Instructions Recorded Confirmed Type FLUoxetine [PROzac] 40 mg PO DAILY 06/12/16 05/12/17 History Allopurinol 200 mg PO DAILY 02/04/17 05/12/17 History Gabapentin Cap/Tab [Neurontin 100 mg PO BID 02/04/17 05/12/17 History Cap/Tab] Levothyroxine Tab [Synthroid Tab] 75 mcg PO DAILY 02/04/17 05/12/17 History Topiramate 25 mg PO BID 03/10/17 05/12/17 History buPROPion XL [Wellbutrin Xl] 150 mg PO DAILY 03/10/17 05/12/17 History Pantoprazole Tab [Protonix Tab] 40 mg PO DAILY tablet 03/13/17 05/12/17 Rx Skin Healing Oint (Aquaphor) 1 applic TOP DAILY applic 03/13/17 05/12/17 Rx [Aquaphor] traZODone [Desyrel] 25 mg PO BEDTIME PRN tablet 03/13/17 05/12/17 Rx glipiZIDE [Glipizide] 5 mg PO AC 04/20/17 05/12/17 History Clindamycin Cap [Cleocin Cap] 600 mg PO QID #28 capsule 04/22/17 05/12/17 Rx Gentamicin 0.1% Cream [Garamycin 1 applic TOP DAILY #1 applic 04/22/17 05/12/17 Rx 0.1% Cream] HYDROcodone/ACETAMIN 7.5-325 1 tablet PO Q4H PRN #20 tablet 04/22/17 05/12/17 Rx [[place] 7.5-325] Allergies Allergy/AdvReac Type Severity Reaction Status Date / Time ceftaroline fosamil Allergy ITCHING Verified 04/21/17 15:50 [From Teflaro] Medical,Surgical,& Family Hx - Medical History Cardio: History of: CHF, CAD, Hypertension, PVD, Cardiovascular Problems ( [place]) No history of: Aneurysm, Cardiac Dysrhythmia, Cerebrovascular Disease, Congenital Heart Disease, HI, Pacemaker, Valvular Heart Disease Psychological: History of: Anxiety Disorders No history of: ADHD, Behavior Problems, Bipolar Disorder, Depression, Previous Suicide Attempt, Psychiatric/Substance Abuse Tx, Schizophrenia, Violent Behavior, Psychiatric Problems Neurology: No history of: Brain Aneurysm, Cerebral Hemorrhage, Cerebrovascular Accident , Cerebral Palsy, Dementia, Migraine, Multiple Sclerosis, Parkinson's Disease, Peripheral Neuropathy, Seizures, TIA, Vertigo, Neurologocal Cancer HEENT: History of: Eye Problem (wears glasses) No history of: Ear Problem, Dental Problems, Glaucoma, Oral Cancer, HEENT Problems Endocrine: History of: Diabetes Mellitus (NIDDM), Dyslipidemia, Thyroid Disorder No history of: Adrenal Disease, Diabetes Mellitus (IDDM), Endocrine Cancer, Endocrine Problems Rheumatology: History of;: Gout No history of;: Fibromyalgia, Myasthenia Gravis, Psoriasis, Rheumatoid Arthritis, Sjogrens, Systemic Lupus Erythematosus, Rheumatological Problems Respiratory: History of: Bronchitis, COPD, Pulmonary Hypertension, Pneumonia No history of: Asthma, Intubation, Obstructive Sleep Apnea, Pulmonary Embolism, Lung Cancer, Respiratory Problems Renal: History of: Renal Failure (ARF), Renal Problems No history of: Renal (Kidney) Cancer, Dialysis Genitourinary: History of: Recurring Urinary Tract Infections No history of: Bladder Problem, Kidney Stones, Genitourinary Cancer, Problems Gastrointestinal: No history of: Bowel Obstruction, Clostridium Difficile, Crohn's Disease, Diverticulitis/ Diverticulosis, Esophageal Varices, GERD, Gastrointestinal Bleed , Hemorrhoids, Hematochezia, Hepatitis, Liver Problems, Pancreatitis, Polyps, Ulcerative Colitis, Gastrointestinal Cancer, GI Problems Musculoskeletal: No history of: Amputation, Back/Neck Problems, Degenerative Disk Disease, Herniated Disk, Osteoporosis, Musculoskeletal Cancer, Musculoskeletal Problems Hematology: History of: Anemia No history of: Blood Transfusion Reaction, Bleeding Problems, Clotting Problems, Sickle Cell Disease, Hematologic Cancer, Blood Disorders Reproductive: No history of: Abnormal Pap Smear, Breast Cancer, Endometriosis, Ectopic , Ovarian Cysts, Complication, Sexually Transmitted Disorders , Reproductive Cancer, Reproductive Problems Other: History of: Skin Problems (Lymphedema, cellulitis) No history of: Anesthesia Reactions, Anaphylaxis, Cancer, Eczema, HIV, Malignant Hyperthermia, MRSA, Vancomycin-Resistant Enterococci, Miscellaneous Medical Problems - Surgical History Cardiac Surgeries: Patient Denies: Femoral-Popliteal Bypass Graft, Cardiac Catheterization, Cardiac Surgery, Carotid Endarterectomy, Internal Defibrillator, Vascular Access Devices Thoracic Surgeries: Patient denies;: Kidney (Renal Surgery), Lithotripsy, Nephrectomy, Organ Transplant, Lobectomy Neurologic Surgeries: Patient denies: Brain Aneurysm, Cerebral Hemorrhage, Neurologic Surgery HEENT Surgeries: Surgical HX of: Eye Surgery (detached retina), Tonsilectomy & Adenoidectomy Patient denies: Carotid Endarterectomy, Thyroid Surgery Abdominal Surgeries: Patient denies: Abdominal Surgery, Appendectomy, Cholecystectomy, Colonoscopy , Gastric Bypass Surgery, EGD, Hernia Repair, Splenectomy Reproductive Surgeries: Surgical HX of;: Section, Gynecologic Surgery, Tubal Ligation Patient denies;: Breast Surgery, Cystoscopy, Dilation and Curettage, Genitourinary Surgery, Hysterectomy Orthopedic Surgeries: Patient denies;: Implanted Devices, Orthopedic Surgery, Spinal Surgery, Total Hip Replacement, Total Knee Replacement - Family History Family History: Reports;: Family Cancer (mom with breast cancer), Family Diabetes, Family Heart Disease, Family Hypertension, Family Stroke Denies;: Family Anesthesia Reaction, Family Hematology, Family Psychiatric Problems, Additional Family History - Social History Smoking Status: Never smoker Frequency of Alcohol Use: None Type of Drug Use: None 12 point system: reviewed and no additional remarkable complaints except as stated Exam - Constitutional Vitals: Period Temp Pulse Resp BP Sys/Miller Pulse Ox Last 24 Hr 97.5 F-99.0 F 72-90 16-20 99-141/49-94 90-97 General appearance: mild distress - Head Head exam: Present: normal inspection - ENT ENT exam: Present: normal exam - Neck Neck exam: Present: normal inspection - Respiratory Respiratory exam: Present: rales - Cardiovascular Cardiovascular exam: Present: RRR - GI/Abdominal GI/Abdominal exam: Present: hypoactive bowel sounds, soft - Extremities Exam Extremities exam: Present: other (Marked swelling of both calves and ankles with ulceration of the left and right calf areas laterally) - Back Exam Back exam: Present: normal inspection - Neurological Exam Neurological exam: Present: alert, oriented X3, CN II-XII intact - Skin Skin exam: Present: normal color, warm Quality Measures - Stroke Symptom Onset Unknown: No Results - Labs CBC & BMP: 05/12/17 20:21 05/12/17 20:21 Lab Results: I have reviewed the past 24 hour labs
--- NOTE | 2017-05-13 10:04 | Hospitalist Progress Note ---
Assessment and Plan (1) Cellulitis Status: Acute Assessment and plan: Continue patient on Vanc [address] Fernandes following. pain meds as needed. Holding lasix for creatinine level. Current Visit: Yes (2) Lymphedema of both lower extremities Status: Chronic Assessment and plan: Wound care following. Surgery following. Current Visit: Yes (3) Anemia Status: Acute Assessment and plan: Chronic anemia. Check cbc Current Visit: No Hospitalist: Subjective Interval history: Ms. Davila is a 61-year-old white female with a history of hypertension, diabetes, PVD, CAD, CHF, COPD, and pulmonary hypertension presents to the ED last night with a 6 day history of leg swelling. Patient stays with but her primary assistant store leader is her daughter. Patient was seen and examined this morning. No acute changes overnight. Patient is slightly drowsy. She reports receiving Benadryl after having allergic reaction to 1 of the antibiotics she received last night. Pt's bilateral lower extremities are swollen with left being greater than the right. Continue current plan of care with IV antibiotics. Dr. Fernandes has seen patient this a.m. Wound care will see patient. We will continue to monitor. Exam - Constitutional Vitals: Period Temp Pulse Resp BP Sys/Miller Pulse Ox Last 24 Hr 97.5 F-99.0 F 72-90 16-20 99-141/49-94 90-97 General appearance: no acute distress, morbidly obese - Head Head exam: Present: normal inspection, normocephalic - Eye Eye exam: Present: EOMI Pupils: Present: KATIANA - ENT ENT exam: Present: normal exam - Neck Neck exam: Present: normal inspection - Cardiovascular Cardiovascular exam: Present: regular rate and rhythm - GI/Abdominal GI/Abdominal exam: Present: normal bowel sounds, soft. Absent: tenderness - Extremities Exam Extremities exam: Present: edema (3+ pitting edema) - Neurological Exam Neurological exam: Present: alert, oriented X3 - Psychiatric Psychiatric exam: Present: normal affect, normal mood - Skin Skin exam: Present: normal color, warm, dry Results - Labs CBC & BMP: 05/12/17 20:21 05/12/17 20:21 Lab Results: I have reviewed the past 24 hour labs Quality Measures - Stroke Symptom Onset Unknown: No
[2017-05-13] MEDS ORDERED: LEVOFLOXACIN INJ 750 MG in PREMIX 1 EACH IV SCH (11:00)
[2017-05-13] MEDS ORDERED: VANCOMYCIN INJ 1,500 MG in SODIUM CHLORIDE 0.9% 500 ML IV ONE (12:00)
[2017-05-13] MEDS: ACETIC ACID 0.25% IRRIGATION 1,000 ML BOTTLE IRRIG SCH ×2 (13:27→21:13)
[2017-05-13] MEDS: FUROSEMIDE 40 MG/4 ML VIAL IV SCH (16:19)
[2017-05-14 06:25] LABS: Basophils % 0.5 % (0.0-0.8); Hematocrit 26.5 VOL% (35.7-47.0); Hemoglobin 8.6 GM/DL (12.0-16.0); Immature Granulocytes % 3.6 %; Immature Granulocytes Absolute 0.23 #; Lymphocytes # 1.9 10*3/uL (1.4-4.0); Lymphocytes % 29.4 % (21.3-54.2); Mean Corpuscular HGB Conc 32.5 GM/DL (32-36); Mean Corpuscular Hemoglobin 28 PG (27-34); Mean Corpuscular Volume 87.5 FL (87-102); Monocytes # 0.7 10*3/uL (0.11-0.8); Monocytes % 10.4 % (1.7-12.7); Neutrophils # 3.6 10*3/uL (1.4-7.4); Neutrophils % 56.1 % (38.7-73.9); Platelet Count 225 T/CUMM (130-400); Red Blood Count 3.03 MC/CUMM (3.8-5.5); Red Cell Distribution Width 15.8 % (9.3-17.3); White Blood Count 6.3 T/CUMM (4-12)
[2017-05-14 06:54] LABS: Calcium 8.2 MG/DL (8.5-10.1); Osmolality,Calculated 284.4 MOS/KG (273-304); Potassium 4.3 MMOL/L (3.5-5.1)
[2017-05-14] MEDS: FUROSEMIDE 40 MG/4 ML VIAL IV SCH ×2 (08:09→15:52)
[2017-05-14] MEDS: ENOXAPARIN 40 MG/0.4 ML SYRINGE SUBCUT SCH (08:09)
[2017-05-14] MEDS: ALLOPURINOL 100 MG TABLET PO SCH (08:10)
[2017-05-14] MEDS: LEVOTHYROXINE 75 MCG TABLET PO SCH (08:10)
[2017-05-14] MEDS: PANTOPRAZOLE 40 MG TABLET PO SCH (08:10)
[2017-05-14] MEDS: GABAPENTIN 100 MG CAPSULE PO SCH ×2 (08:10→20:07)
[2017-05-14] MEDS: FLUoxetine 20 MG CAPSULE PO SCH (08:10)
[2017-05-14] MEDS: INSULIN LISPRO 100 UNIT/ML SUBCUT SCH ×4 (08:10→21:18)
[2017-05-14] MEDS: TOPIRAMATE 25 MG TABLET PO SCH (08:10)
[2017-05-14] MEDS: DOCUSATE SODIUM 100 MG CAPSULE PO SCH ×2 (08:10→20:07)
[2017-05-14] MEDS: buPROPion XL 150 MG TABLET PO SCH (08:10)
[2017-05-14] MEDS ORDERED: LEVOFLOXACIN 750 MG TABLET PO SCH (09:00)
--- NOTE | 2017-05-14 09:22 | General Surgery Progress Note ---
Assessment and Plan - Time spent with patient Time spent with patient: Less than 30 minutes (1) Lymphedema of both lower extremities Status: Chronic Assessment and plan: Impression: Chronic lymphedematous and venous stasis changes of both lower extremities Plan: Good compressive therapy Current Visit: Yes (2) Cellulitis Status: Resolved Assessment and plan: Impression: Cellulitis of both lower extremities around the lateral and anterior portion of the legs may be partially related to dependency Plan: IV antibiotics Current Visit: No Qualifiers: Site of cellulitis of extremity: lower extremity (3) Ulcer Status: Acute Assessment and plan: Impression: Bilateral calf ulcerations secondary to venous stasis disease and possible pressure changes Plan: Local wound care plus the antibiotics and compressive therapy. 05/14/2017. Ulcers are both calves are continue to have some drainage and there may be a little bit of odor with him. Unable to locate the cultures that was apparently done at some point. Will maintain present wound care at this time to try to keep things as clean as we can. She needs compressive therapy and her dressings are too low on the leg at this time to be effective. This may be because we did get some edema down and the dressing slipped down a little bit. Encouraged the nurses important to wrap it all way up to the knee. Current Visit: No (4) Morbid obesity Status: Chronic Assessment and plan: Impression: Morbid obesity Plan: Medical management Current Visit: No (5) Diabetes Status: Chronic Assessment and plan: Impression: Diabetes adult onset. Plan: Medical management Current Visit: No Qualifiers: Diabetes mellitus type: type 2 Chronic kidney disease stage: stage 5, not on chronic dialysis Subjective Patient reports: Present: feels better, afebrile Exam - Constitutional Vitals: Period Temp Pulse Resp BP Sys/Miller Pulse Ox Last 24 Hr 97.4 F-98.3 F 60-71 17-20 111-130/53-68 93-96 General appearance: mild distress - Head Head exam: Present: normal inspection - ENT ENT exam: Present: normal exam - Neck Neck exam: Present: normal inspection - Respiratory Respiratory exam: Present: rales - Cardiovascular Cardiovascular exam: Present: RRR - GI/Abdominal GI/Abdominal exam: Present: hypoactive bowel sounds, soft - Extremities Exam Extremities exam: Present: other (Dressings in place but some drainage from both ulcers at this time. Dressings are down and not completely up to the knee at this point) - Back Exam Back exam: Present: normal inspection - Neurological Exam Neurological exam: Present: alert, oriented X3, CN II-XII intact - Skin Skin exam: Present: normal color, warm, dry Results - Labs CBC & BMP: 05/14/17 05:51 05/14/17 05:51 Lab Results: I have reviewed the past 24 hour labs Quality Measures - Stroke Symptom Onset Unknown: No
--- NOTE | 2017-05-14 11:33 | Hospitalist Progress Note ---
Assessment and Plan (1) Chronic venous stasis dermatitis of both lower extremities Status: Acute Assessment and plan: 1)chronic venous stasis- responding to lasix with decrease in creatinine and 2400 out after first dose. continue diuresis, local care for wounds per Dr Fernandes. His initial impression yesterday was that she did not have infection. She is afebrile, normal WBC. Since she presents for cellulitis and is treated for it one week of every month , I will consult DR Carlos Rodriguez. I suspect that most of the time she is not infected and giving her broad spectrum antibiotics monthly puts her at risk of developing drug resistance organisms and facing difficult to treat infections in the future. Perhaps she would improve each month with diuresis alone. In addition she had an allergic reaction to one of the antibiotics the night of admission. I will defer to Dr Ramirez's assessment of her need for antibiotics. 2)morbid obesity 3)anemia- chronic 4)dispo- SW looking into swing bed. Current Visit: Yes (2) Venous stasis ulcers of both lower extremities Status: Acute Current Visit: No (3) Morbid obesity with BMI of 60.0-69.9, adult Status: Acute Current Visit: No (4) Chronic kidney disease Status: Chronic Current Visit: No Hospitalist: Subjective Interval history: Mrs Dwyer is doing better. She has had a brisk diuresis and her coban dressings are loose due to decreased edema. She has no new commplaints. SW has made referrals to swing bed, and she is willing to go. She will benefit from wound care and diuresis. Exam - Constitutional Vitals: Period Temp Pulse Resp BP Sys/Miller Pulse Ox Last 24 Hr 96.9 F-98.3 F 60-71 17-20 111-130/53-68 92-96 General appearance: no acute distress, morbidly obese - Eye Eye exam: Present: EOMI. Absent: scleral icterus - Respiratory Respiratory exam: Present: clear to auscultation bilaterally - Cardiovascular Cardiovascular exam: Present: regular rate and rhythm - GI/Abdominal GI/Abdominal exam: Present: normal bowel sounds, soft. Absent: tenderness - Extremities Exam Extremities exam: Present: edema (large edema in lower extremities, less than yesterday because coban dressings are loose. mild diffuse erythema in area of edema) Results - Labs CBC & BMP: 05/14/17 05:51 05/14/17 05:51 Lab Results: I have reviewed the past 24 hour labs Quality Measures - Stroke Symptom Onset Unknown: No
--- NOTE | 2017-05-14 11:39 | Case Mgmt Physician Query Form ---
TB Signs and Symptoms Screening ([place]) INSTRUCTIONS: To be completed annually on residents/staff with a significant Tuberculin Skin Test (TST) upon admission/hire or a prior significant TST. To be completed on all staff at hire. Please respond to each listed symptom with an (X) in either the "YES" or "NO" box. Do you currently have any of the following symptoms: YES NO ( ) ( x) A cough If yes, is it: ( ) Productive ( ) Non- productive ( ) ( x) Hemoptysis (spitting up blood) ( ) (x ) Chest pains ( ) x ) Weight Loss ( ) ( x) Fever ( ) (x ) Night Sweats ( ) (x) Weakness ( ) (x ) Loss of Appetite ( ) (x ) Difficulty Breathing If you answered YES" to any of the above questions, how long have symptoms been present? Comments: If you have any questions, please contact me . Thank you, Vanessa BENITEZ Email: [email or web address] [facility]
[2017-05-14] MEDS ORDERED: TUBERCULIN SKIN TEST 0.1 ML SYRINGE INTRADERM ONE (11:51)
[2017-05-14] MEDS ORDERED: VANCOMYCIN INJ 2,500 MG in SODIUM CHLORIDE 0.9% 500 ML IV SCH (12:00)
[2017-05-14] MEDS: ACETIC ACID 0.25% IRRIGATION 1,000 ML BOTTLE IRRIG SCH ×2 (15:08→21:18)
--- NOTE | 2017-05-14 16:27 | Infectious Disease Consult ---
Assessment and Plan (1) Lymphedema of both lower extremities Status: Chronic Current Visit: Yes (2) Non-healing wound of lower extremity Status: Chronic Assessment and plan: From the photos it does not appear this if these wounds are infected, but possibly colonized. They appear to be unclean from the admission pictures. Reportedly they are nice and pink now with wound care she is gotten in the hospital. No evidence of surrounding cellulitis. Her daughter says that she props her legs up on 2 stools and I believe that the ulcers represent pressure wounds from the stools. Recommendations: Clinically no indication for continued antibiotics at this time [no fever or leukocytosis since admission]. She needs to continue aggressive wound care at home. If the edema were to be better controlled she would probably have gradual healing of the wounds. Thank you very much for the consult. Discussed with Dr. Quintanilla Current Visit: Yes (3) Congestive heart failure Status: Acute Current Visit: No (4) Diabetes mellitus Status: Acute Current Visit: No (5) Morbid obesity with BMI of 60.0-69.9, adult Status: Acute Current Visit: No (6) Chronic kidney disease Status: Chronic Current Visit: No History of Present Illness Chief complaint: Chronic leg ulcers History of present illness: Ms. Dwyer is a 61 year old female who is morbidly obese and has chronic lymphedema to the lower extremities and chronic ulcers to posterior aspect of both legs, came in because of increased swelling of the legs and drainage from the ulcers. She says she has repeated admissions almost every month for cellulitis of the legs related to infection of the ulcers. She said she had a fever last week which was a week ago to 102. She has been afebrile since then but thought that her legs are getting red. On admission it was not felt by the other team members that she had the cellulitis and infected wounds did not look infected. She has been on empiric vancomycin. I am asked to advise on whether or not she needs continue antibiotic therapy.. Home Medications Medication Instructions Recorded Confirmed Type Gabapentin Cap/Tab [Neurontin 100 mg PO BID 02/04/17 05/14/17 History Cap/Tab] Levothyroxine Tab [Synthroid Tab] 75 mcg PO DAILY 02/04/17 05/14/17 History buPROPion XL [Wellbutrin Xl] 150 mg PO DAILY 03/10/17 05/14/17 History Furosemide Tab [Lasix Tab] 40 mg PO DAILY 05/14/17 05/14/17 History HYDROcodone/ACETAMIN 7.5-325 1 tablet PO Q4H PRN 05/14/17 05/14/17 History [[place] 7.5-325] Pravastatin [Pravachol] 10 mg PO DAILY 05/14/17 05/14/17 History traZODone [Desyrel] 50 mg PO BEDTIME PRN 05/14/17 05/14/17 History Allergies Allergy/AdvReac Type Severity Reaction Status Date / Time ceftaroline fosamil Allergy ITCHING Verified 04/21/17 15:50 [From Teflaro] 12 point system: reviewed and no additional remarkable complaints except as stated (Per HPI) Medical,Surgical,& Family Hx - Medical History Cardio: History of: CHF, CAD, Hypertension, PVD, Cardiovascular Problems ( lymphadema) No history of: Aneurysm, Cardiac Dysrhythmia, Cerebrovascular Disease, Congenital Heart Disease, ID, Pacemaker, Valvular Heart Disease Psychological: History of: Anxiety Disorders No history of: ADHD, Behavior Problems, Bipolar Disorder, Depression, Previous Suicide Attempt, Psychiatric/Substance Abuse Tx, Schizophrenia, Violent Behavior, Psychiatric Problems Neurology: No history of: Brain Aneurysm, Cerebral Hemorrhage, Cerebrovascular Accident , Cerebral Palsy, Dementia, Migraine, Multiple Sclerosis, Parkinson's Disease, Peripheral Neuropathy, Seizures, TIA, Vertigo, Neurologocal Cancer HEENT: History of: Eye Problem (wears glasses) No history of: Ear Problem, Dental Problems, Glaucoma, Oral Cancer, HEENT Problems Endocrine: History of: Diabetes Mellitus (NIDDM), Dyslipidemia, Thyroid Disorder No history of: Adrenal Disease, Diabetes Mellitus (IDDM), Endocrine Cancer, Endocrine Problems Rheumatology: History of;: Gout No history of;: Fibromyalgia, Myasthenia Gravis, Psoriasis, Rheumatoid Arthritis, Sjogrens, Systemic Lupus Erythematosus, Rheumatological Problems Respiratory: History of: Bronchitis, COPD, Pulmonary Hypertension, Pneumonia No history of: Asthma, Intubation, Obstructive Sleep Apnea, Pulmonary Embolism, Lung Cancer, Respiratory Problems Renal: History of: Renal Failure (ARF), Renal Problems No history of: Renal (Kidney) Cancer, Dialysis Genitourinary: History of: Recurring Urinary Tract Infections No history of: Bladder Problem, Kidney Stones, Genitourinary Cancer, Problems Gastrointestinal: No history of: Bowel Obstruction, Clostridium Difficile, Crohn's Disease, Diverticulitis/ Diverticulosis, Esophageal Varices, GERD, Gastrointestinal Bleed , Hemorrhoids, Hematochezia, Hepatitis, Liver Problems, Pancreatitis, Polyps, Ulcerative Colitis, Gastrointestinal Cancer, GI Problems Musculoskeletal: No history of: Amputation, Back/Neck Problems, Degenerative Disk Disease, Herniated Disk, Osteoporosis, Musculoskeletal Cancer, Musculoskeletal Problems Hematology: History of: Anemia No history of: Blood Transfusion Reaction, Bleeding Problems, Clotting Problems, Sickle Cell Disease, Hematologic Cancer, Blood Disorders Reproductive: No history of: Abnormal Pap Smear, Breast Cancer, Endometriosis, Ectopic , Ovarian Cysts, Complication, Sexually Transmitted Disorders , Reproductive Cancer, Reproductive Problems Other: History of: Skin Problems (Lymphedema, cellulitis) No history of: Anesthesia Reactions, Anaphylaxis, Cancer, Eczema, HIV, Malignant Hyperthermia, MRSA, Vancomycin-Resistant Enterococci, Miscellaneous Medical Problems - Surgical History Cardiac Surgeries: Patient Denies: Femoral-Popliteal Bypass Graft, Cardiac Catheterization, Cardiac Surgery, Carotid Endarterectomy, Internal Defibrillator, Vascular Access Devices Thoracic Surgeries: Patient denies;: Kidney (Renal Surgery), Lithotripsy, Nephrectomy, Organ Transplant, Lobectomy Neurologic Surgeries: Patient denies: Brain Aneurysm, Cerebral Hemorrhage, Neurologic Surgery HEENT Surgeries: Surgical HX of: Eye Surgery (detached retina), Tonsilectomy & Adenoidectomy Patient denies: Carotid Endarterectomy, Thyroid Surgery Abdominal Surgeries: Patient denies: Abdominal Surgery, Appendectomy, Cholecystectomy, Colonoscopy , Gastric Bypass Surgery, EGD, Hernia Repair, Splenectomy Reproductive Surgeries: Surgical HX of;: Section, Gynecologic Surgery, Tubal Ligation Patient denies;: Breast Surgery, Cystoscopy, Dilation and Curettage, Genitourinary Surgery, Hysterectomy Orthopedic Surgeries: Patient denies;: Implanted Devices, Orthopedic Surgery, Spinal Surgery, Total Hip Replacement, Total Knee Replacement - Family History Family History: Reports;: Family Cancer (mom with breast cancer), Family Diabetes, Family Heart Disease, Family Hypertension, Family Stroke Denies;: Family Anesthesia Reaction, Family Hematology, Family Psychiatric Problems, Additional Family History - Social History Smoking Status: Never smoker Frequency of Alcohol Use: None Type of Drug Use: None Infectious Disease Exam H&P - Constitutional Vitals: Vital Signs Temp Pulse Resp BP Pulse Ox 96.9 F L 62 20 118/59 92 L 05/14/17 11:25 05/14/17 11:25 05/14/17 11:25 05/14/17 11:25 05/14/17 11:25 Intake and Output 05/14/17 05/14/17 05/14/17 07:59 15:59 23:59 Intake Total 100 / 100 Output Total 650 / 650 Balance -550 / -550 Intake: Oral 100 / 100 Output: Urine 650 / 650 Other: Voiding Method Indwelling Catheter # Bowel Movements 0 Exam: General: Patient morbidly obese, relatively comfortable, nontoxic appearing HEENT: Mucous membranes pink and moist, anicteric acyanotic, KATIANA, no oral exudates Neck: Supple, no thyroid gland enlargement Respiratory system: Breath sounds vesicular, no crepitations or wheezes Cardiovascular: Normal S1 and S2, no murmurs appreciated Abdomen: Normal bowel sounds, obese, nontender Genitourinary: No suprapubic pain or bladder distention, clear urine from [place] catheter Extremities: Chronic lower extremity edema bilaterally, legs bandaged. Photos of the posterior leg ulcers noted seem symmetrical. No significant surrounding erythema. Skin: No rash Reports - Labs CBC & BMP: 05/14/17 05:51 05/14/17 05:51 Labs: Laboratory Results - last 24 hr 05/13/17 05/13/17 05/14/17 16:16 19:46 00:34 WBC RBC Hgb Hct MCV MCH MCHC RDW Plt Count MPV Neut % (Auto) Lymph % (Auto) [place] % (Auto) Eos % (Auto) Baso % (Auto) Neut # (Auto) Lymph # (Auto) [place] # (Auto) Eos # (Auto) Baso # (Auto) Immature Gran % Nucleated RBC % Immature Gran # Nucleated RBCs # Immature Plt Fraction Sodium Potassium Chloride Carbon Dioxide Anion Gap BUN Creatinine GFR Calculation BUN/Creatinine Ratio Glucose POC Glucose 93 166 H 102 Calculated Osmolality Calcium 05/14/17 05/14/17 05/14/17 04:57 05:51 05:51 WBC 6.3 RBC 3.03 L Hgb 8.6 L Hct 26.5 L MCV 87.5 MCH 28 MCHC 32.5 RDW 15.8 Plt Count 225 MPV 10.0 Neut % (Auto) 56.1 Lymph % (Auto) 29.4 Crowley % (Auto) 10.4 Eos % (Auto) 0.0 Baso % (Auto) 0.5 Neut # (Auto) 3.6 Lymph # (Auto) 1.9 Crowley # (Auto) 0.7 Eos # (Auto) 0.0 Baso # (Auto) 0.0 Immature Gran % 3.6 Nucleated RBC % 0.0 Immature Gran # 0.23 Nucleated RBCs # 0.00 Immature Plt Fraction 0.0 Sodium 140 Potassium 4.3 Chloride 108 H Carbon Dioxide 25 Anion Gap 11.3 BUN 28 H Creatinine 1.50 H GFR Calculation 61 BUN/Creatinine Ratio 18.00 Glucose 97 POC Glucose 105 Calculated Osmolality 284.4 Calcium 8.2 L 05/14/17 05/14/17 05/14/17 07:11 11:08 16:02 WBC RBC Hgb Hct MCV MCH MCHC RDW Plt Count MPV Neut % (Auto) Lymph % (Auto) [place] % (Auto) Eos % (Auto) Baso % (Auto) Neut # (Auto) Lymph # (Auto) [place] # (Auto) Eos # (Auto) Baso # (Auto) Immature Gran % Nucleated RBC % Immature Gran # Nucleated RBCs # Immature Plt Fraction Sodium Potassium Chloride Carbon Dioxide Anion Gap BUN Creatinine GFR Calculation BUN/Creatinine Ratio Glucose POC Glucose 100 113 H 118 H Calculated Osmolality Calcium - Reports Microbiology: Microbiology 05/13/17 01:25 Urine Culture - Preliminary Urine,[place] No Growth at 24 hours. 05/12/17 20:51 Blood Culture - Preliminary Blood No growth at 1 day 05/12/17 20:21 Blood Culture - Preliminary Blood No growth at 1 day
[2017-05-15] MEDS: LEVOTHYROXINE 75 MCG TABLET PO SCH (06:31)
[2017-05-15 07:14] LABS: Calcium 8.3 MG/DL (8.5-10.1); Osmolality,Calculated 286.1 MOS/KG (273-304); Potassium 4.4 MMOL/L (3.5-5.1)
[2017-05-15] MEDS: INSULIN LISPRO 100 UNIT/ML SUBCUT SCH ×2 (08:36→12:01)
[2017-05-15] MEDS: ALLOPURINOL 100 MG TABLET PO SCH (08:39)
[2017-05-15] MEDS: DOCUSATE SODIUM 100 MG CAPSULE PO SCH (08:39)
[2017-05-15] MEDS: FLUoxetine 20 MG CAPSULE PO SCH (08:39)
[2017-05-15] MEDS: buPROPion XL 150 MG TABLET PO SCH (08:39)
[2017-05-15] MEDS: PANTOPRAZOLE 40 MG TABLET PO SCH (08:39)
[2017-05-15] MEDS: GABAPENTIN 100 MG CAPSULE PO SCH (08:39)
[2017-05-15] MEDS: ENOXAPARIN 40 MG/0.4 ML SYRINGE SUBCUT SCH (08:40)
[2017-05-15] MEDS: FUROSEMIDE 40 MG/4 ML VIAL IV SCH (08:40)
[2017-05-15] MEDS: ACETIC ACID 0.25% IRRIGATION 1,000 ML BOTTLE IRRIG SCH (10:10)
--- NOTE | 2017-05-15 12:16 | Discharge Summary ---
<Heide Matute - Last Filed: 05/15/17 12:00> Hospital Course - Hospital Course Hospital Course: Ms Dwyer 61 y/o w/PMHx CHF, CAD, HTN, PVD, Lymphadema, anxiety disorders, diabetes, bronchitis, COPD, pulmonary hypertension, recurring UTI, anemia, cellulits presented 05/12/17 to the ED for further evaluation of swelling, redness and pain to bilateral lower legs and weeping. IN ED: H&H stable, BUN 39 , Creatinine 1.70, Glucose 177. Hospital medicine consulted for admission and treatment of lymphedema and cellulitis. Start Vanc, obtained blood and urine cultures, legs elevated, consult Dr Fernandes, consult wound care for decubitus ulcers. Wound Cultures - final still pending. Urine final culture negative. Blood culture finals still pending Dr Fernandes consult/plan/recommendations: Chronic lymphedematous and venous stasis changes of both lower extremities: Plan: Good compressive therapy Cellulitis of both lower extremities around the lateral and anterior portion of the legs may be partially related to dependency: Plan: IV antibiotics Bilateral calf ulcerations secondary to venous stasis disease and possible pressure changes Plan: Local wound care plus the antibiotics and compressive therapy. Infectious disease consult plan/recommendation: Clinically there is no current indication for continued antibiotics at this time. Will need to continue aggressive wound care at home. Once edema is better controlled she would probably have gradual healing of the wounds. Today 05/15/17 patient is stable, symptoms improved and will be discharged from hospital and need continuation of wound care. Will need to continue compressive therapy, Encouraged and stress the importance to wrap all way up to the knee. She will need to follow up with Primary Care Physician after discharge. Further recommendations with discharge planning to follow per Dr Granda. Specialty Discharge - Follow Up or Referrals Discharge Plan - Discharge Data Disposition: Disch/Xfer to Snf - Discharge Medications New Acetic Acid 0.25% Irrigation 50 ml IRRIG BID ml Allopurinol [Zyloprim] 200 mg PO DAILY tablet FLUoxetine [PROzac] 40 mg PO DAILY capsule HYDROcodone/ACETAMIN 7.5-325 [[place] 7.5-325] 1 tablet PO Q4H PRN #20 tablet PRN Reason: Pain Moderate (4-7) Skin Healing Oint (Aquaphor) [Aquaphor] 1 applic TOP PRN PRN applic PRN Reason: Dry Skin Continue Levothyroxine Tab [Synthroid Tab] 75 mcg PO DAILY Gabapentin Cap/Tab [Neurontin Cap/Tab] 100 mg PO BID buPROPion XL [Wellbutrin Xl] 150 mg PO DAILY Furosemide Tab [Lasix Tab] 40 mg PO DAILY traZODone [Desyrel] 50 mg PO BEDTIME PRN PRN Reason: Agitation Pravastatin [Pravachol] 10 mg PO DAILY HYDROcodone/ACETAMIN 7.5-325 [[place] 7.5-325] 1 tablet PO Q4H PRN PRN Reason: Pain - Follow Up or Referral - Forms/Instructions Instructions: Cellulitis (DC), Chronic Wound Care (DC), Lymphedema (DC) Exam - Constitutional Vitals: Period Temp Pulse Resp BP Sys/Miller Pulse Ox Last 24 Hr 96.4 F-98.5 F 62-72 18-20 122-134/57-73 91-96 Discharge Results Procedures and tests throughout hospitalization: Pending Orders 05/12/17 20:51 Blood Culture Stat 05/14/17 14:20 Wound Culture Routine Wound Culture Routine Labs on day of discharge: Labs from last 24 hours 05/15/17 05/15/17 05/15/17 11:53 07:18 05:47 Sodium 142 Potassium 4.4 Chloride 107 Carbon Dioxide 27 Anion Gap 12.4 BUN 25 H Creatinine 1.60 H GFR Calculation 57 BUN/Creatinine Ratio 15.00 Glucose 103 POC Glucose 129 H 113 H Calculated Osmolality 286.1 Calcium 8.3 L 05/14/17 05/14/17 18:56 16:02 Sodium Potassium Chloride Carbon Dioxide Anion Gap BUN Creatinine GFR Calculation BUN/Creatinine Ratio Glucose POC Glucose 173 H 118 H Calculated Osmolality Calcium Preliminary micro results at discharge 05/14/17 14:20 Wound Culture - Preliminary Leg - Left Lower Gram Negative Rods Gram Negative Rods#2 Gram Negative Rods#3 05/14/17 14:20 Wound Culture - Preliminary Leg - Rt Lower Gram Negative Rods Gram Negative Rods#2 05/12/17 20:51 Blood Culture - Preliminary Blood No growth at 1 day 05/12/17 20:21 Blood Culture - Preliminary Blood No growth at 1 day DS: Provider Date of admission: 05/12/17 22:22 Primary care physician: . No PCP Attending physician on admission: Omkar Upton MD Consults: 05/12/17 23:29 Consult to Case Mgmt/Social Srvs [CONS] Routine Reason for Case Mgmt/Social Srvs: Discharge Planning Consult to Physician [CONS] Routine Comment: cellulitis to bilateral legs Consulting Provider: Juwan Fernandes Person Notified: MD GOEL Date Notified: 05/13/17 Time Notified: 08:58 Consult to Wound Care [facility] [CONS] Routine Reason for Wound Care: Wound Care Management 05/13/17 02:00 Consult to Pastoral Services [CONS] Routine Comment: Pastoral Screen: Request [employer] Work[employer] Visit Pastoral Screen Source of Request: Patient 05/13/17 08:51 Consult to Wound Care [facility] [CONS] Routine Reason for Wound Care: Wound Care Management Other Consult Comment: Severe lymphedema needs excellent compressive wraps 05/13/17 08:52 Consult to Physical Therapy [CONS] Routine Reason for Physical Therapy: Evaluate and Treat Start Therapy: Today Consult Comment: Ambulate patient with walker 05/13/17 10:03 Consult to Case Mgmt/Social Srvs [CONS] Routine Reason for Case Mgmt/Social Srvs: Equipment Consult Comment: bariactric reclining chair at home to keep legs elevated while sitting 05/13/17 10:25 Consult to Physical Therapy [CONS] Routine Reason for Physical Therapy: Evaluate and Treat 05/13/17 10:30 Consult to Pharmacy [CONS] Routine Reason for Pharmacy Consult: Dose/Manage Vancomycin 05/14/17 08:59 Consult to Physician [CONS] Routine Comment: repeated admit for cellulitis, venous stasis Consulting Provider: Kylah Ramirez Person Notified: [email or web address] Date Notified: 05/14/17 Time Notified: 09:16 Discharging clinician: Heide Matute NP <Javier Granda - Last Filed: 05/15/17 12:37> Discharge Plan - Discharge Data Condition at Discharge: Stable Discharge Diet: diabetic diet Activity: as per physical therapy Hygiene: no restrictions Wound / Dressing Care Instructions: please see Dr. Fernandes's wound care instructions which are in the packet - Forms/Instructions Additional Discharge Instructions: follow up with PCM in 1-2 weeks Exam - Constitutional General appearance: no acute distress, morbidly obese - Head Head exam: Present: normal inspection, normocephalic - Eye Eye exam: Present: EOMI. Absent: conjunctival injection, scleral icterus Pupils: Present: KATIANA - ENT ENT exam: Present: normal exam - Neck Neck exam: Present: normal inspection - Respiratory Respiratory exam: Present: clear to auscultation bilaterally. Absent: rales, rhonchi, wheezes - Cardiovascular Cardiovascular exam: Present: regular rate and rhythm. Absent: diastolic murmur , systolic murmur - GI/Abdominal GI/Abdominal exam: Present: normal bowel sounds, soft. Absent: distended, tenderness - Extremities Exam Extremities exam: Present: edema (chronic lymphaedema; legs wrapped in tsering dressing) - Neurological Exam Neurological exam: Present: alert, oriented X3 - Psychiatric Psychiatric exam: Present: normal affect, normal mood Discharge Results - Impressions Patient seen and examined. She is hemodynamically and clinically stable. Active Issues: 1. Chronic bilateral lymphadema with venous stasis changes 2. Chronic non healing wounds of bilateral lower extremities: patient has been seen by Dr. Fernandes of surgery and gave wound care recommendations. Appreciate help. Patient was also seen by ID and Dr. Gonzalez-Michael did not feel patient had cellulitis. Bcx/ucx grew nothing. Wound cultures grew GNR. Her impression is colonization. Please see Dr. Fernandes's wound care recommendations in the packet. 3. Morbid obesity 4. h/o DM: sugars controlled 5. h/o CKD: stable Disposition: to swing bed; follow up with PCM in 1-2 weeks
[2017-05-15 12:19] VITALS: BP 133/72
--- NOTE | 2017-05-15 12:21 | General Surgery Progress Note ---
Assessment and Plan - Time spent with patient Time spent with patient: Less than 30 minutes (1) Lymphedema of both lower extremities Status: Chronic Assessment and plan: Impression: Chronic lymphedematous and venous stasis changes of both lower extremities Plan: Good compressive therapy Current Visit: Yes (2) Cellulitis Status: Resolved Assessment and plan: Impression: Cellulitis of both lower extremities around the lateral and anterior portion of the legs may be partially related to dependency Plan: IV antibiotics Current Visit: No Qualifiers: Site of cellulitis of extremity: lower extremity (3) Ulcer Status: Acute Assessment and plan: Impression: Bilateral calf ulcerations secondary to venous stasis disease and possible pressure changes Plan: Local wound care plus the antibiotics and compressive therapy. 05/14/2017. Ulcers are both calves are continue to have some drainage and there may be a little bit of odor with him. Unable to locate the cultures that was apparently done at some point. Will maintain present wound care at this time to try to keep things as clean as we can. She needs compressive therapy and her dressings are too low on the leg at this time to be effective. This may be because we did get some edema down and the dressing slipped down a little bit. Encouraged the nurses important to wrap it all way up to the knee. 05/15/2017. Swelling in the legs are slightly better the wounds on the calves posteriorly look a little bit hand dry cleaner although there continues to still be a good bit of drainage. Dressings have been in place with a keep coming down at work and try to keep him up In order can get the best results we possibly can. Current Visit: No (4) Morbid obesity Status: Chronic Assessment and plan: Impression: Morbid obesity Plan: Medical management Current Visit: No (5) Diabetes Status: Chronic Assessment and plan: Impression: Diabetes adult onset. Plan: Medical management Current Visit: No Qualifiers: Diabetes mellitus type: type 2 Chronic kidney disease stage: stage 5, not on chronic dialysis Subjective Patient reports: Present: feels better, afebrile Exam - Constitutional Vitals: Period Temp Pulse Resp BP Sys/Miller Pulse Ox Last 24 Hr 96.4 F-98.5 F 62-72 18-20 122-134/57-73 91-96 General appearance: mild distress - Head Head exam: Present: normal inspection - Neck Neck exam: Present: normal inspection - Respiratory Respiratory exam: Present: clear to auscultation bilaterally, rales - Cardiovascular Cardiovascular exam: Present: RRR - GI/Abdominal GI/Abdominal exam: Present: hypoactive bowel sounds, soft - Extremities Exam Extremities exam: Present: other (Ulcers on both legs look a little bit hand dry cleaner there is to have a good bit of drainage to and we get the Ursula in place. Dressings are coming down all of the report that she may be putting something down the dressings to scratch) - Back Exam Back exam: Present: normal inspection - Neurological Exam Neurological exam: Present: alert, oriented X3, CN II-XII intact - Skin Skin exam: Present: normal color, warm, dry Results - Labs CBC & BMP: 05/14/17 05:51 05/15/17 05:47 Lab Results: I have reviewed the past 24 hour labs Quality Measures - Stroke Symptom Onset Unknown: No Specialty Discharge - Follow Up or Referrals
--- NOTE | 2017-05-15 12:27 | Infectious Disease Progress ---
Assessment and Plan (1) Lymphedema of both lower extremities Status: Chronic Current Visit: Yes (2) Non-healing wound of lower extremity Status: Chronic Assessment and plan: Chronic pressure ulcers posterior calves. Not actively infected but definitely colonized with multiple organisms on the wound swab. Because of a edema of the skin around the wounds quite macerated with the dressings. Recommendations: Local wound care is all that is indicated, no antibiotics. Hopefully the can be a way to keep the skin around the wounds dry otherwise will be further breakdown of the surrounding tissues. Current Visit: Yes (3) Congestive heart failure Status: Acute Current Visit: No (4) Diabetes mellitus Status: Acute Current Visit: No (5) Morbid obesity with BMI of 60.0-69.9, adult Status: Acute Current Visit: No (6) Chronic kidney disease Status: Chronic Current Visit: No Infectious Disease - PN: Subj Interval history: Patient doing well. Antibiotics were stopped yesterday. She has dressings to her legs but they keep slipping down because of her body habitus. No fever. Infectious Disease Exam (PN) - Constitutional Vitals: Temp Pulse Resp BP Pulse Ox 98.3 F 65 20 133/72 93 L 05/15/17 12:00 05/15/17 12:00 05/15/17 12:00 05/15/17 12:00 05/15/17 12:00 General appearance: mild distress Exam: General appearance: no acute distress - Extremities Exam Extremities exam: Chronic bilateral lower extremity edema, positive posterior left calf noted mostly pink but a lot of serous drainage on the dressing. Surrounding also the skin is quite macerated because the type of dressing she has is keeping it moist. - Skin Skin exam: no rash Results - Labs CBC & BMP: 05/14/17 05:51 05/15/17 05:47 Lab Results: I have reviewed the past 24 hour labs Quality Measures - Stroke Symptom Onset Unknown: No Specialty Discharge - Follow Up or Referrals
== END 2017-05-15 14:11 | disposition swing bed (61) | DRG 603 ==
LOC: EDUNIT# → EDBD → N.ED 19:19 → N.EDINP 22:22 → SUATTDRO 22:22 → N.5E 22:48
PROVIDERS: ADMIT Internal Medicine; ATTEND Internal Medicine

== ENCOUNTER 2017-09-08 22:46 | Inpatient (IN) ==
[2017-09-08] MEDS ORDERED: ACETAMINOPHEN 500 MG TABLET ONE (23:12)
[2017-09-08] MEDS ORDERED: ACETAMINOPHEN 500 MG TABLET PO STA (23:15)
[2017-09-08] MEDS ORDERED: CEFTAROLINE 600 MG in SODIUM CHLORIDE 0.9% 100 ML IV STA (23:24)
[2017-09-08] MEDS ORDERED: PENICILLIN G BENZATHINE 1,200,000 UNIT/2 ML SYRINGE IM STA (23:24)
[2017-09-08] MEDS ORDERED: PENICILLIN G BENZATHINE 1,200,000 UNIT/2 ML SYRINGE IM ONE (23:38)
[2017-09-09 00:14] LABS: Basophils % 0.2 % (0.0-0.8); Hematocrit 33.4 VOL% (35.7-47.0); Hemoglobin 10.5 GM/DL (12.0-16.0); Immature Granulocytes % 1.4 %; Immature Granulocytes Absolute 0.25 #; Lymphocytes # 0.9 10*3/uL (1.4-4.0); Lymphocytes % 4.9 % (21.3-54.2); Mean Corpuscular HGB Conc 31.4 GM/DL (32-36); Mean Corpuscular Hemoglobin 28 PG (27-34); Mean Corpuscular Volume 87.4 FL (87-102); Mean Platelet Volume 11.2 FL (9.6-12.0); Monocytes # 0.8 10*3/uL (0.11-0.8); Monocytes % 4.6 % (1.7-12.7); Neutrophils # 16.4 10*3/uL (1.4-7.4); Neutrophils % 88.9 % (38.7-73.9); Platelet Count 134 T/CUMM (130-400); Red Blood Count 3.82 MC/CUMM (3.8-5.5); Red Cell Distribution Width 14.8 % (9.3-17.3); White Blood Count 18.4 T/CUMM (4-12)
[2017-09-09] MEDS ORDERED: CEFTAROLINE 600 MG VIAL IV ONE ×2 (00:14→04:47)
[2017-09-09 00:38] LABS: Band Neutrophils 5 % (0-10); Lymphocytes 9 % (20-55); Platelet Estimate Normal; Segmented Neutrophils 83 % (50-85); Total Cells Counted 100
[2017-09-09 00:48] LABS: Alanine Aminotransferase < 9 U/L (13-56); Alkaline Phosphatase 88 U/L (45-117); Aspartate Amino Transferase 11 U/L (0-37); Blood Urea Nitrogen 28 MG/DL (7-18); Calcium 7.7 MG/DL (8.5-10.1); Glucose 158 MG/DL (74-106); Osmolality,Calculated 274.4 MOS/KG (273-304); Sodium 133 MMOL/L (136-145)
[2017-09-09] MEDS ORDERED: DEXTROSE 50% 25 GM/50 ML VIAL IV PRN (01:11)
[2017-09-09] MEDS ORDERED: GLUCAGON 1 MG VIAL IM PRN (01:11)
[2017-09-09] MEDS: CEFTAROLINE 600 MG in SODIUM CHLORIDE 0.9% 100 ML IV SCH ×2 (04:00→17:30)
[2017-09-09 04:46] LABS: Basophils % 0.2 % (0.0-0.8); Hematocrit 34.1 VOL% (35.7-47.0); Hemoglobin 10.9 GM/DL (12.0-16.0); Immature Granulocytes % 3.1 %; Lymphocytes # 1.3 10*3/uL (1.4-4.0); Lymphocytes % 5.6 % (21.3-54.2); Mean Corpuscular Hemoglobin 28 PG (27-34); Mean Corpuscular Volume 88.3 FL (87-102); Mean Platelet Volume 11.4 FL (9.6-12.0); Monocytes # 1.1 10*3/uL (0.11-0.8); Monocytes % 4.9 % (1.7-12.7); Neutrophils # 19.4 10*3/uL (1.4-7.4); Neutrophils % 86.2 % (38.7-73.9); Platelet Count 134 T/CUMM (130-400); Red Blood Count 3.86 MC/CUMM (3.8-5.5); Red Cell Distribution Width 14.9 % (9.3-17.3); White Blood Count 22.5 T/CUMM (4-12)
[2017-09-09 05:04] LABS: Calcium 7.6 MG/DL (8.5-10.1); Osmolality,Calculated 273.4 MOS/KG (273-304)
[2017-09-09 05:21] LABS: Band Neutrophils 8 % (0-10); Giant Platelets Few; Hypochromasia 1+; Lymphocytes 5 % (20-55); Platelet Estimate Normal; Segmented Neutrophils 82 % (50-85); Total Cells Counted 100
[2017-09-09] MEDS ORDERED: ACETAMINOPHEN 500 MG TABLET PO STA (06:28)
[2017-09-09] MEDS ORDERED: ACETAMINOPHEN 500 MG TABLET ONE (06:30)
[2017-09-09] MEDS: INSULIN LISPRO 100 UNIT/ML SUBCUT SCH ×4 (08:38→21:14)
[2017-09-09] MEDS: ZINC OXIDE 20% OINT 28.35 GM TUBE TOP SCH ×3 (09:10→21:13)
[2017-09-09] MEDS ORDERED: INSULIN LISPRO 100 UNIT/ML SUBCUT ONE (11:57)
[2017-09-09] MEDS: NYSTATIN CREAM 15 GM TUBE TOP SCH ×2 (15:19→21:13)
[2017-09-09] MEDS: DESITIN 4OZ/NYSTATIN 15 GRAM MIXTURE PASTE TOP SCH (21:14)
[2017-09-10] MEDS: CEFTAROLINE 600 MG in SODIUM CHLORIDE 0.9% 100 ML IV SCH ×3 (00:34→15:03)
[2017-09-10] MEDS ORDERED: diphenhydrAMINE 50 MG/1 ML VIAL IV PRN (01:22)
[2017-09-10 05:35] LABS: Basophils % 0.2 % (0.0-0.8); Hematocrit 29.9 VOL% (35.7-47.0); Hemoglobin 9.7 GM/DL (12.0-16.0); Immature Granulocytes % 4.5 %; Immature Granulocytes Absolute 0.82 #; Lymphocytes # 1.5 10*3/uL (1.4-4.0); Lymphocytes % 8.2 % (21.3-54.2); Mean Corpuscular HGB Conc 32.4 GM/DL (32-36); Mean Corpuscular Hemoglobin 28 PG (27-34); Mean Corpuscular Volume 85.7 FL (87-102); Mean Platelet Volume 11.7 FL (9.6-12.0); Monocytes # 0.9 10*3/uL (0.11-0.8); Monocytes % 4.8 % (1.7-12.7); Neutrophils # 14.9 10*3/uL (1.4-7.4); Neutrophils % 82.3 % (38.7-73.9); Platelet Count 149 T/CUMM (130-400); Red Blood Count 3.49 MC/CUMM (3.8-5.5); Red Cell Distribution Width 15.1 % (9.3-17.3); White Blood Count 18.1 T/CUMM (4-12)
[2017-09-10 06:00] LABS: Band Neutrophils 2 % (0-10); Giant Platelets Few; Hypochromasia 1+; Lymphocytes 5 % (20-55); Platelet Estimate Normal; Segmented Neutrophils 89 % (50-85); Total Cells Counted 100
[2017-09-10 06:01] LABS: Ovalocytes Slight
[2017-09-10 06:30] LABS: Calcium 7.6 MG/DL (8.5-10.1); Osmolality,Calculated 277.2 MOS/KG (273-304); Potassium 3.8 MMOL/L (3.5-5.1)
[2017-09-10] MEDS: INSULIN LISPRO 100 UNIT/ML SUBCUT SCH ×4 (08:14→21:03)
[2017-09-10] MEDS: FLUCONAZOLE 200 MG TABLET PO SCH (08:52)
[2017-09-10] MEDS: DESITIN 4OZ/NYSTATIN 15 GRAM MIXTURE PASTE TOP SCH ×2 (09:41→21:03)
[2017-09-10] MEDS: NYSTATIN CREAM 15 GM TUBE TOP SCH ×3 (09:41→21:03)
[2017-09-10] MEDS: ZINC OXIDE 20% OINT 28.35 GM TUBE TOP SCH ×3 (09:41→21:03)
[2017-09-10] MEDS: FUROSEMIDE 40 MG TABLET PO SCH (21:00)
[2017-09-10] MEDS: GABAPENTIN 300 MG CAPSULE PO SCH (21:01)
[2017-09-11] MEDS: CEFTAROLINE 600 MG in SODIUM CHLORIDE 0.9% 100 ML IV SCH ×2 (03:04→12:54)
[2017-09-11] MEDS: LEVOTHYROXINE 75 MCG TABLET PO SCH (06:09)
[2017-09-11] MEDS: INSULIN LISPRO 100 UNIT/ML SUBCUT SCH ×4 (07:53→21:54)
[2017-09-11] MEDS: TOLTERODINE LA 4 MG CAPSULE PO SCH (09:19)
[2017-09-11] MEDS: PANTOPRAZOLE 40 MG TABLET PO SCH (09:20)
[2017-09-11] MEDS: GABAPENTIN 300 MG CAPSULE PO SCH ×2 (09:20→21:52)
[2017-09-11] MEDS: FLUCONAZOLE 200 MG TABLET PO SCH (09:20)
[2017-09-11] MEDS: FUROSEMIDE 40 MG TABLET PO SCH ×2 (09:20→21:52)
[2017-09-11] MEDS: ALLOPURINOL 100 MG TABLET PO SCH (09:20)
[2017-09-11] MEDS: buPROPion XL 150 MG TABLET PO SCH (09:20)
[2017-09-11] MEDS: DESITIN 4OZ/NYSTATIN 15 GRAM MIXTURE PASTE TOP SCH ×2 (09:22→21:52)
[2017-09-11] MEDS: NYSTATIN CREAM 15 GM TUBE TOP SCH ×4 (09:23→21:53)
[2017-09-11] MEDS: ZINC OXIDE 20% OINT 28.35 GM TUBE TOP SCH ×4 (09:23→21:53)
[2017-09-11] MEDS: BACITRACIN OINT 0.9 GM PACK TOP SCH (12:21)
[2017-09-11] MEDS ORDERED: SKIN HEALING OINT (AQUAPHOR) 50 GM TUBE TOP PRN (15:12)
[2017-09-12] MEDS: CEFTAROLINE 600 MG in SODIUM CHLORIDE 0.9% 100 ML IV SCH ×2 (01:20→15:30)
[2017-09-12 03:13] LABS: Basophils # 0.1 10*3/uL (0.0-0.2); Basophils % 0.3 % (0.0-0.8); Hematocrit 28.7 VOL% (35.7-47.0); Immature Granulocytes % 1.1 %; Immature Granulocytes Absolute 0.17 #; Lymphocytes # 1.7 10*3/uL (1.4-4.0); Lymphocytes % 11.2 % (21.3-54.2); Mean Corpuscular HGB Conc 31.4 GM/DL (32-36); Mean Corpuscular Hemoglobin 27 PG (27-34); Mean Corpuscular Volume 87.5 FL (87-102); Mean Platelet Volume 12.1 FL (9.6-12.0); Monocytes # 1.5 10*3/uL (0.11-0.8); Monocytes % 9.9 % (1.7-12.7); Neutrophils % 77.5 % (38.7-73.9); Platelet Count 181 T/CUMM (130-400); Red Blood Count 3.28 MC/CUMM (3.8-5.5); Red Cell Distribution Width 15.1 % (9.3-17.3); White Blood Count 15.5 T/CUMM (4-12)
[2017-09-12 04:09] LABS: Calcium 7.1 MG/DL (8.5-10.1); Osmolality,Calculated 284.1 MOS/KG (273-304)
[2017-09-12 04:38] LABS: Band Neutrophils 1 % (0-10); Lymphocytes 11 % (20-55); Segmented Neutrophils 82 % (50-85); Total Cells Counted 100
[2017-09-12 04:40] LABS: Giant Platelets Few; Hypochromasia 1+; Platelet Estimate Adequate
[2017-09-12] MEDS: LEVOTHYROXINE 75 MCG TABLET PO SCH (06:11)
[2017-09-12] MEDS: INSULIN LISPRO 100 UNIT/ML SUBCUT SCH ×4 (09:40→21:14)
[2017-09-12] MEDS: FLUCONAZOLE 200 MG TABLET PO SCH (09:41)
[2017-09-12] MEDS: TOLTERODINE LA 4 MG CAPSULE PO SCH (09:41)
[2017-09-12] MEDS: GABAPENTIN 300 MG CAPSULE PO SCH ×2 (09:42→20:14)
[2017-09-12] MEDS: PANTOPRAZOLE 40 MG TABLET PO SCH (09:42)
[2017-09-12] MEDS: FUROSEMIDE 40 MG TABLET PO SCH ×2 (09:42→20:14)
[2017-09-12] MEDS: ALLOPURINOL 100 MG TABLET PO SCH (09:42)
[2017-09-12] MEDS: buPROPion XL 150 MG TABLET PO SCH (09:42)
[2017-09-12] MEDS: NYSTATIN CREAM 15 GM TUBE TOP SCH ×3 (09:43→20:15)
[2017-09-12] MEDS: ZINC OXIDE 20% OINT 28.35 GM TUBE TOP SCH ×3 (09:43→20:18)
[2017-09-12] MEDS: DESITIN 4OZ/NYSTATIN 15 GRAM MIXTURE PASTE TOP SCH ×2 (09:43→20:18)
[2017-09-12] MEDS: BACITRACIN OINT 0.9 GM PACK TOP SCH (09:47)
[2017-09-13] MEDS: CEFTAROLINE 600 MG in SODIUM CHLORIDE 0.9% 100 ML IV SCH ×2 (00:42→14:41)
[2017-09-13] MEDS: LEVOTHYROXINE 75 MCG TABLET PO SCH (05:39)
[2017-09-13] MEDS: INSULIN LISPRO 100 UNIT/ML SUBCUT SCH ×4 (09:19→20:46)
[2017-09-13] MEDS: BACITRACIN OINT 0.9 GM PACK TOP SCH (09:20)
[2017-09-13] MEDS: buPROPion XL 150 MG TABLET PO SCH (09:21)
[2017-09-13] MEDS: ALLOPURINOL 100 MG TABLET PO SCH (09:21)
[2017-09-13] MEDS: TOLTERODINE LA 4 MG CAPSULE PO SCH (09:21)
[2017-09-13] MEDS: PANTOPRAZOLE 40 MG TABLET PO SCH (09:21)
[2017-09-13] MEDS: GABAPENTIN 300 MG CAPSULE PO SCH ×2 (09:22→20:04)
[2017-09-13] MEDS: FLUCONAZOLE 200 MG TABLET PO SCH (09:22)
[2017-09-13] MEDS: FUROSEMIDE 40 MG TABLET PO SCH ×2 (09:22→20:04)
[2017-09-13] MEDS: DESITIN 4OZ/NYSTATIN 15 GRAM MIXTURE PASTE TOP SCH ×2 (09:24→20:47)
[2017-09-13] MEDS: NYSTATIN CREAM 15 GM TUBE TOP SCH ×3 (09:25→20:47)
[2017-09-13] MEDS: ZINC OXIDE 20% OINT 28.35 GM TUBE TOP SCH ×3 (09:25→20:48)
[2017-09-14] MEDS: CEFTAROLINE 600 MG in SODIUM CHLORIDE 0.9% 100 ML IV SCH ×2 (01:14→14:29)
[2017-09-14] MEDS: LEVOTHYROXINE 75 MCG TABLET PO SCH (05:53)
[2017-09-14 06:51] LABS: Basophils # 0.1 10*3/uL (0.0-0.2); Basophils % 0.4 % (0.0-0.8); Eosinophils # 0.2 10*3/uL (0.0-0.87); Eosinophils % 1.3 % (0.00-10.9); Hematocrit 27.5 VOL% (35.7-47.0); Hemoglobin 8.6 GM/DL (12.0-16.0); Immature Granulocytes % 6.7 %; Immature Granulocytes Absolute 1.18 #; Lymphocytes # 1.8 10*3/uL (1.4-4.0); Lymphocytes % 10.3 % (21.3-54.2); Mean Corpuscular HGB Conc 31.3 GM/DL (32-36); Mean Corpuscular Hemoglobin 28 PG (27-34); Mean Corpuscular Volume 88.7 FL (87-102); Mean Platelet Volume 11.2 FL (9.6-12.0); Monocytes # 1.7 10*3/uL (0.11-0.8); Monocytes % 9.9 % (1.7-12.7); Neutrophils # 12.5 10*3/uL (1.4-7.4); Neutrophils % 71.4 % (38.7-73.9); Platelet Count 321 T/CUMM (130-400); Red Cell Distribution Width 15.3 % (9.3-17.3); White Blood Count 17.5 T/CUMM (4-12)
[2017-09-14 07:20] LABS: Band Neutrophils 2 % (0-10); Eosinophils 1 % (0-10); Giant Platelets Few; Hypochromasia 1+; Lymphocytes 15 % (20-55); Platelet Estimate Adequate; Segmented Neutrophils 74 % (50-85); Total Cells Counted 100
[2017-09-14 07:21] LABS: Ovalocytes Slight
[2017-09-14 07:22] LABS: Calcium 7.5 MG/DL (8.5-10.1); Osmolality,Calculated 281.1 MOS/KG (273-304); Potassium 4.3 MMOL/L (3.5-5.1)
[2017-09-14] MEDS: INSULIN LISPRO 100 UNIT/ML SUBCUT SCH ×4 (09:10→20:12)
[2017-09-14] MEDS: FLUCONAZOLE 200 MG TABLET PO SCH (09:10)
[2017-09-14] MEDS: BACITRACIN OINT 0.9 GM PACK TOP SCH (09:10)
[2017-09-14] MEDS: TOLTERODINE LA 4 MG CAPSULE PO SCH (09:10)
[2017-09-14] MEDS: NYSTATIN CREAM 15 GM TUBE TOP SCH ×3 (09:11→21:08)
[2017-09-14] MEDS: ALLOPURINOL 100 MG TABLET PO SCH (09:11)
[2017-09-14] MEDS: buPROPion XL 150 MG TABLET PO SCH (09:11)
[2017-09-14] MEDS: GABAPENTIN 300 MG CAPSULE PO SCH ×2 (09:11→21:07)
[2017-09-14] MEDS: DESITIN 4OZ/NYSTATIN 15 GRAM MIXTURE PASTE TOP SCH ×2 (09:11→21:07)
[2017-09-14] MEDS: PANTOPRAZOLE 40 MG TABLET PO SCH (09:11)
[2017-09-14] MEDS: FUROSEMIDE 40 MG TABLET PO SCH ×2 (09:11→21:07)
[2017-09-14] MEDS: ZINC OXIDE 20% OINT 28.35 GM TUBE TOP SCH ×3 (09:11→21:08)
[2017-09-14] MEDS: DOXYCYCLINE HYCLATE 100 MG CAPSULE PO SCH (21:06)
[2017-09-15] MEDS: LEVOTHYROXINE 75 MCG TABLET PO SCH (06:05)
[2017-09-15 06:14] LABS: Basophils # 0.1 10*3/uL (0.0-0.2); Basophils % 0.3 % (0.0-0.8); Hematocrit 27.2 VOL% (35.7-47.0); Hemoglobin 8.7 GM/DL (12.0-16.0); Immature Granulocytes % 5.5 %; Immature Granulocytes Absolute 0.98 #; Lymphocytes # 1.8 10*3/uL (1.4-4.0); Lymphocytes % 9.8 % (21.3-54.2); Mean Corpuscular Hemoglobin 28 PG (27-34); Mean Corpuscular Volume 86.6 FL (87-102); Mean Platelet Volume 10.8 FL (9.6-12.0); Monocytes # 1.4 10*3/uL (0.11-0.8); Monocytes % 8.1 % (1.7-12.7); Neutrophils # 13.6 10*3/uL (1.4-7.4); Neutrophils % 76.3 % (38.7-73.9); Platelet Count 412 T/CUMM (130-400); Red Blood Count 3.14 MC/CUMM (3.8-5.5); Red Cell Distribution Width 15.3 % (9.3-17.3); White Blood Count 17.8 T/CUMM (4-12)
[2017-09-15 06:36] LABS: Band Neutrophils 4 % (0-10); Eosinophils 1 % (0-10); Hypochromasia 1+; Lymphocytes 8 % (20-55); Metamyelocytes 1 %; Microcytosis 1+; Myelocytes 1 %; Segmented Neutrophils 78 % (50-85); Total Cells Counted 100
[2017-09-15 06:41] LABS: Calcium 7.6 MG/DL (8.5-10.1); Osmolality,Calculated 282.8 MOS/KG (273-304); Potassium 4.5 MMOL/L (3.5-5.1)
[2017-09-15] MEDS: INSULIN LISPRO 100 UNIT/ML SUBCUT SCH ×4 (08:39→20:47)
[2017-09-15] MEDS: FUROSEMIDE 40 MG TABLET PO SCH ×2 (09:11→20:49)
[2017-09-15] MEDS: buPROPion XL 150 MG TABLET PO SCH (09:11)
[2017-09-15] MEDS: PANTOPRAZOLE 40 MG TABLET PO SCH (09:11)
[2017-09-15] MEDS: DOXYCYCLINE HYCLATE 100 MG CAPSULE PO SCH (09:11)
[2017-09-15] MEDS: BACITRACIN OINT 0.9 GM PACK TOP SCH (09:11)
[2017-09-15] MEDS: ALLOPURINOL 100 MG TABLET PO SCH (09:11)
[2017-09-15] MEDS: GABAPENTIN 300 MG CAPSULE PO SCH ×2 (09:11→20:49)
[2017-09-15] MEDS: TOLTERODINE LA 4 MG CAPSULE PO SCH (09:11)
[2017-09-15] MEDS: ZINC OXIDE 20% OINT 28.35 GM TUBE TOP SCH ×3 (09:12→20:50)
[2017-09-15] MEDS: NYSTATIN CREAM 15 GM TUBE TOP SCH ×3 (09:12→20:50)
[2017-09-15] MEDS: DESITIN 4OZ/NYSTATIN 15 GRAM MIXTURE PASTE TOP SCH ×2 (09:12→20:49)
[2017-09-15] MEDS: LINEZOLID INJ 600 MG in PREMIX 1 EACH IV SCH (16:10)
[2017-09-15] MEDS: PIPERACILLIN/TAZOBACTAM 4,500 MG in SODIUM CHLORIDE 0.9% 100 ML IV SCH ×2 (18:02→23:33)
[2017-09-16] MEDS: LINEZOLID INJ 600 MG in PREMIX 1 EACH IV SCH ×2 (03:15→15:47)
[2017-09-16] MEDS: LEVOTHYROXINE 75 MCG TABLET PO SCH (05:29)
[2017-09-16 05:55] LABS: Basophils % 0.2 % (0.0-0.8); Hematocrit 25.3 VOL% (35.7-47.0); Hemoglobin 8.2 GM/DL (12.0-16.0); Immature Granulocytes % 4.9 %; Immature Granulocytes Absolute 0.71 #; Lymphocytes # 1.8 10*3/uL (1.4-4.0); Mean Corpuscular HGB Conc 32.4 GM/DL (32-36); Mean Corpuscular Hemoglobin 28 PG (27-34); Mean Corpuscular Volume 86.6 FL (87-102); Mean Platelet Volume 10.4 FL (9.6-12.0); Monocytes % 6.6 % (1.7-12.7); Neutrophils # 11.1 10*3/uL (1.4-7.4); Neutrophils % 76.3 % (38.7-73.9); Platelet Count 447 T/CUMM (130-400); Red Blood Count 2.92 MC/CUMM (3.8-5.5); Red Cell Distribution Width 15.1 % (9.3-17.3); White Blood Count 14.6 T/CUMM (4-12)
[2017-09-16 06:18] LABS: Band Neutrophils 5 % (0-10); Hypochromasia 1+; Lymphocytes 18 % (20-55); Microcytosis 1+; Myelocytes 1 %; Segmented Neutrophils 66 % (50-85); Total Cells Counted 100
[2017-09-16 06:19] LABS: Calcium 7.5 MG/DL (8.5-10.1); Potassium 4.3 MMOL/L (3.5-5.1)
[2017-09-16] MEDS: INSULIN LISPRO 100 UNIT/ML SUBCUT SCH ×4 (07:38→21:24)
[2017-09-16] MEDS: PANTOPRAZOLE 40 MG TABLET PO SCH (08:29)
[2017-09-16] MEDS: GABAPENTIN 300 MG CAPSULE PO SCH ×2 (08:29→21:27)
[2017-09-16] MEDS: PIPERACILLIN/TAZOBACTAM 4,500 MG in SODIUM CHLORIDE 0.9% 100 ML IV SCH ×3 (08:29→23:32)
[2017-09-16] MEDS: FUROSEMIDE 40 MG TABLET PO SCH ×2 (08:29→21:26)
[2017-09-16] MEDS: BACITRACIN OINT 0.9 GM PACK TOP SCH (08:30)
[2017-09-16] MEDS: ALLOPURINOL 100 MG TABLET PO SCH (08:30)
[2017-09-16] MEDS: DESITIN 4OZ/NYSTATIN 15 GRAM MIXTURE PASTE TOP SCH ×2 (08:30→21:27)
[2017-09-16] MEDS: TOLTERODINE LA 4 MG CAPSULE PO SCH (08:30)
[2017-09-16] MEDS: ZINC OXIDE 20% OINT 28.35 GM TUBE TOP SCH ×3 (08:30→21:28)
[2017-09-16] MEDS: NYSTATIN CREAM 15 GM TUBE TOP SCH ×3 (08:30→21:28)
[2017-09-16] MEDS ORDERED: SODIUM CHLORIDE 0.9% 500 ML IV ONE (12:34)
[2017-09-16] MEDS ORDERED: FUROSEMIDE 40 MG TABLET PO SCH (16:00)
[2017-09-17] MEDS: LINEZOLID INJ 600 MG in PREMIX 1 EACH IV SCH (03:45)
[2017-09-17 05:11] LABS: Basophils # 0.1 10*3/uL (0.0-0.2); Basophils % 0.4 % (0.0-0.8); Hematocrit 26.1 VOL% (35.7-47.0); Hemoglobin 8.2 GM/DL (12.0-16.0); Immature Granulocytes % 5.2 %; Lymphocytes # 1.8 10*3/uL (1.4-4.0); Lymphocytes % 13.6 % (21.3-54.2); Mean Corpuscular HGB Conc 31.4 GM/DL (32-36); Mean Corpuscular Hemoglobin 28 PG (27-34); Mean Corpuscular Volume 87.9 FL (87-102); Mean Platelet Volume 10.1 FL (9.6-12.0); Monocytes # 0.8 10*3/uL (0.11-0.8); Monocytes % 6.2 % (1.7-12.7); Neutrophils % 74.6 % (38.7-73.9); Platelet Count 524 T/CUMM (130-400); Red Blood Count 2.97 MC/CUMM (3.8-5.5); Red Cell Distribution Width 15.1 % (9.3-17.3); White Blood Count 13.4 T/CUMM (4-12)
[2017-09-17 05:37] LABS: Band Neutrophils 1 % (0-10); Eosinophils 1 % (0-10); Hypochromasia 1+; Lymphocytes 12 % (20-55); Metamyelocytes 1 %; Myelocytes 1 %; Segmented Neutrophils 78 % (50-85); Total Cells Counted 100
[2017-09-17 05:38] LABS: Microcytosis 1+; Platelet Estimate Increased
[2017-09-17] MEDS: LEVOTHYROXINE 75 MCG TABLET PO SCH (05:40)
[2017-09-17 05:44] LABS: Calcium 7.8 MG/DL (8.5-10.1); Osmolality,Calculated 281.8 MOS/KG (273-304); Potassium 4.4 MMOL/L (3.5-5.1)
[2017-09-17] MEDS: INSULIN LISPRO 100 UNIT/ML SUBCUT SCH ×2 (06:47→11:16)
[2017-09-17] MEDS ORDERED: HYDROmorphone 2 MG/1 ML VIAL IV ONE (09:38)
[2017-09-17] MEDS: FUROSEMIDE 40 MG TABLET PO SCH (10:26)
[2017-09-17] MEDS: ALLOPURINOL 100 MG TABLET PO SCH (10:26)
[2017-09-17] MEDS: TOLTERODINE LA 4 MG CAPSULE PO SCH (10:26)
[2017-09-17] MEDS: PANTOPRAZOLE 40 MG TABLET PO SCH (10:26)
[2017-09-17] MEDS: GABAPENTIN 300 MG CAPSULE PO SCH (10:26)
[2017-09-17] MEDS: BACITRACIN OINT 0.9 GM PACK TOP SCH (10:27)
[2017-09-17] MEDS: ZINC OXIDE 20% OINT 28.35 GM TUBE TOP SCH (10:28)
[2017-09-17] MEDS: NYSTATIN CREAM 15 GM TUBE TOP SCH (10:28)
[2017-09-17] MEDS: DESITIN 4OZ/NYSTATIN 15 GRAM MIXTURE PASTE TOP SCH (10:28)
[2017-09-17] MEDS: PIPERACILLIN/TAZOBACTAM 4,500 MG in SODIUM CHLORIDE 0.9% 100 ML IV SCH (10:59)
[2017-09-17 11:47] VITALS: BP 115/57
== END 2017-09-17 14:36 | DRG 299 ==
LOC: EDUNIT# → EDBD → N.ED 22:46 → N.EDINP 09-09 00:29 → SUATTDRO 09-09 00:29 → N.3E 09-09 14:34
PROVIDERS: ADMIT Internal Medicine; ATTEND Internal Medicine

== ENCOUNTER 2018-06-08 15:32 | Inpatient (IN) ==
[2018-06-08 17:09] LABS: Basophils % 0.6 % (0.0-0.8); Hematocrit 32.3 VOL% (35.7-47.0); Hemoglobin 9.9 GM/DL (12.0-16.0); Immature Granulocytes % 0.3 %; Immature Granulocytes Absolute 0.02 #; Lymphocytes # 1.8 10*3/uL (1.4-4.0); Lymphocytes % 26.7 % (21.3-54.2); Mean Corpuscular HGB Conc 30.7 GM/DL (32-36); Mean Corpuscular Hemoglobin 27 PG (27-34); Mean Corpuscular Volume 89.5 FL (87-102); Mean Platelet Volume 10.5 FL (9.6-12.0); Monocytes # 0.7 10*3/uL (0.11-0.8); Monocytes % 9.9 % (1.7-12.7); Neutrophils # 4.2 10*3/uL (1.4-7.4); Neutrophils % 62.5 % (38.7-73.9); Platelet Count 235 T/CUMM (130-400); Red Blood Count 3.61 MC/CUMM (3.8-5.5); Red Cell Distribution Width 15.4 % (9.3-17.3); White Blood Count 6.8 T/CUMM (4-12)
[2018-06-08 17:16] LABS: Apearance,Urine CLEAR (Clear); Bacteria,Urine Occasional /HPF (Few); Bilirubin,Urine Negative (Negative); Blood, Urine Negative (Negative); Glucose,Urine (UA) Negative (Negative); Ketones,Urine Negative (Negative); Nitrite,Urine Negative (Negative); Protein,Urine Negative; Squamous Epithelial Cell,Urine Occasional /HPF (0-10); Urine Color Colorless (Yellow); Urine Specific Gravity 1.004 (1.001-1.035); Urine Urobilinogen < 2.0 EU/DL (0.2-1.0); WBC,Urine <1 /HPF (0-6)
[2018-06-08 17:23] LABS: Albumin 3.3 G/DL (3.4-5.0); Bilirubin,Total 0.4 MG/DL (0.2-1.0); Calcium 8.6 MG/DL (8.5-10.1); Osmolality,Calculated 279.7 MOS/KG (273-304); Total Protein 8.2 G/DL (6.4-8.3)
[2018-06-08 17:50] LABS: Lactic Acid 1.1 MMOL/L (0.4-2.0)
[2018-06-08] MEDS ORDERED: ONDANSETRON 4 MG/2 ML VIAL IV PRN (18:20)
[2018-06-08] MEDS ORDERED: ZINC OXIDE PASTE 113 GM TUBE TOP PRN (18:29)
[2018-06-08] MEDS ORDERED: SKIN HEALING OINT (AQUAPHOR) 50 GM TUBE TOP PRN (18:29)
[2018-06-08] MEDS ORDERED: traMADol 50 MG TABLET PO PRN (18:29)
[2018-06-08] MEDS ORDERED: GLUCAGON 1 MG VIAL IM PRN (18:31)
[2018-06-08] MEDS ORDERED: DEXTROSE 50% 25 GM/50 ML VIAL IV PRN (18:31)
[2018-06-08] MEDS ORDERED: INFLUENZA VIRUS VACCINE 0.5 ML SYRINGE IM ONE (19:47)
[2018-06-08] MEDS: INSULIN REGULAR 100 UNIT/ML SUBCUT SCH (20:35)
[2018-06-08] MEDS: GABAPENTIN 300 MG CAPSULE PO SCH (20:43)
[2018-06-08] MEDS: FAMOTIDINE 20 MG TABLET PO SCH (20:43)
[2018-06-08] MEDS: ENOXAPARIN 40 MG/0.4 ML SYRINGE SUBCUT SCH (20:44)
[2018-06-08] MEDS: FUROSEMIDE 80 MG TABLET PO SCH (20:44)
[2018-06-08] MEDS: PIPERACILLIN/TAZOBACTAM 3,375 MG in SODIUM CHLORIDE 0.9% 100 ML IV SCH (20:44)
[2018-06-08] MEDS: MORPHINE ER 30 MG TABLET PO SCH (20:44)
[2018-06-08] MEDS ORDERED: methylPREDNISolone SOD SUC 125 MG/2 ML VIAL IV ONE (21:30)
[2018-06-08] MEDS ORDERED: diphenhydrAMINE 50 MG/1 ML VIAL IV ONE (21:30)
[2018-06-08] MEDS ORDERED: LINEZOLID INJ 600 MG in PREMIX 1 EACH IV SCH (23:30)
[2018-06-09] MEDS: PIPERACILLIN/TAZOBACTAM 3,375 MG in SODIUM CHLORIDE 0.9% 100 ML IV SCH (03:36)
[2018-06-09 04:51] LABS: Basophils % 0.2 % (0.0-0.8); Hematocrit 32.5 VOL% (35.7-47.0); Hemoglobin 9.8 GM/DL (12.0-16.0); Immature Granulocytes % 0.4 %; Immature Granulocytes Absolute 0.02 #; Lymphocytes # 0.8 10*3/uL (1.4-4.0); Lymphocytes % 15.3 % (21.3-54.2); Mean Corpuscular HGB Conc 30.2 GM/DL (32-36); Mean Corpuscular Hemoglobin 27 PG (27-34); Mean Platelet Volume 10.7 FL (9.6-12.0); Monocytes # 0.1 10*3/uL (0.11-0.8); Monocytes % 1.6 % (1.7-12.7); Neutrophils # 4.2 10*3/uL (1.4-7.4); Neutrophils % 82.5 % (38.7-73.9); Platelet Count 188 T/CUMM (130-400); Red Blood Count 3.61 MC/CUMM (3.8-5.5); Red Cell Distribution Width 15.3 % (9.3-17.3); White Blood Count 5.1 T/CUMM (4-12)
[2018-06-09 05:18] LABS: Calcium 8.5 MG/DL (8.5-10.1); Osmolality,Calculated 285.8 MOS/KG (273-304); Potassium 4.2 MMOL/L (3.5-5.1)
[2018-06-09] MEDS: LEVOTHYROXINE 75 MCG TABLET PO SCH (06:17)
[2018-06-09] MEDS: INSULIN REGULAR 100 UNIT/ML SUBCUT SCH ×4 (09:17→21:27)
[2018-06-09] MEDS: MORPHINE ER 30 MG TABLET PO SCH ×2 (09:18→21:26)
[2018-06-09] MEDS: FLUoxetine 20 MG CAPSULE PO SCH (09:19)
[2018-06-09] MEDS: GABAPENTIN 300 MG CAPSULE PO SCH ×2 (09:19→21:26)
[2018-06-09] MEDS: FAMOTIDINE 20 MG TABLET PO SCH ×2 (09:20→21:26)
[2018-06-09] MEDS: TOLTERODINE LA 4 MG CAPSULE PO SCH (09:20)
[2018-06-09] MEDS: ALLOPURINOL 100 MG TABLET PO SCH (09:20)
[2018-06-09] MEDS: FUROSEMIDE 80 MG TABLET PO SCH (09:20)
[2018-06-09] MEDS: SODIUM HYPOCHLORITE 0.25% IRRIG 473 ML BOTTLE TOP SCH (09:20)
[2018-06-09] MEDS: PANTOPRAZOLE 40 MG TABLET PO SCH (09:20)
[2018-06-09] MEDS: POTASSIUM CHLORIDE 20 MEQ TABLET PO SCH (09:20)
[2018-06-09] MEDS ORDERED: AZTREONAM 2,000 MG in SODIUM CHLORIDE 0.9% 100 ML IV SCH (15:30)
[2018-06-09] MEDS: CIPROFLOXACIN 500 MG TABLET PO SCH (16:31)
[2018-06-09] MEDS: AZTREONAM 2,000 MG in SYRINGE 1 EACH IV SCH (16:40)
[2018-06-09] MEDS: FUROSEMIDE 40 MG/4 ML VIAL IV SCH (16:47)
[2018-06-09] MEDS: ENOXAPARIN 40 MG/0.4 ML SYRINGE SUBCUT SCH (21:26)
[2018-06-10] MEDS: AZTREONAM 2,000 MG in SYRINGE 1 EACH IV SCH ×4 (00:03→23:40)
[2018-06-10 05:18] LABS: Calcium 8.2 MG/DL (8.5-10.1); Osmolality,Calculated 289.4 MOS/KG (273-304); Potassium 4.2 MMOL/L (3.5-5.1)
[2018-06-10] MEDS: LEVOTHYROXINE 75 MCG TABLET PO SCH (06:08)
[2018-06-10] MEDS: INSULIN REGULAR 100 UNIT/ML SUBCUT SCH ×4 (08:05→21:04)
[2018-06-10] MEDS: GABAPENTIN 300 MG CAPSULE PO SCH ×2 (08:51→21:03)
[2018-06-10] MEDS: PANTOPRAZOLE 40 MG TABLET PO SCH (08:51)
[2018-06-10] MEDS: POTASSIUM CHLORIDE 20 MEQ TABLET PO SCH (08:51)
[2018-06-10] MEDS: FLUoxetine 20 MG CAPSULE PO SCH (08:51)
[2018-06-10] MEDS: ALLOPURINOL 100 MG TABLET PO SCH (08:51)
[2018-06-10] MEDS: MORPHINE ER 30 MG TABLET PO SCH ×2 (08:52→21:03)
[2018-06-10] MEDS: FAMOTIDINE 20 MG TABLET PO SCH ×2 (08:52→21:03)
[2018-06-10] MEDS: FUROSEMIDE 40 MG/4 ML VIAL IV SCH (08:52)
[2018-06-10] MEDS: CIPROFLOXACIN 500 MG TABLET PO SCH ×2 (08:52→21:03)
[2018-06-10] MEDS: TOLTERODINE LA 4 MG CAPSULE PO SCH (08:52)
[2018-06-10] MEDS: SODIUM HYPOCHLORITE 0.25% IRRIG 473 ML BOTTLE TOP SCH (14:30)
[2018-06-10] MEDS: FUROSEMIDE 40 MG TABLET PO SCH (16:19)
[2018-06-10] MEDS: ENOXAPARIN 40 MG/0.4 ML SYRINGE SUBCUT SCH (21:03)
[2018-06-11 05:45] LABS: Basophils % 0.7 % (0.0-0.8); Hematocrit 30.5 VOL% (35.7-47.0); Hemoglobin 9.2 GM/DL (12.0-16.0); Immature Granulocytes % 0.3 %; Immature Granulocytes Absolute 0.02 #; Lymphocytes # 2.5 10*3/uL (1.4-4.0); Lymphocytes % 43.2 % (21.3-54.2); Mean Corpuscular HGB Conc 30.2 GM/DL (32-36); Mean Corpuscular Hemoglobin 28 PG (27-34); Mean Corpuscular Volume 92.4 FL (87-102); Mean Platelet Volume 10.3 FL (9.6-12.0); Monocytes # 0.5 10*3/uL (0.11-0.8); Monocytes % 9.3 % (1.7-12.7); Neutrophils # 2.7 10*3/uL (1.4-7.4); Neutrophils % 46.5 % (38.7-73.9); Platelet Count 221 T/CUMM (130-400); Red Cell Distribution Width 15.8 % (9.3-17.3); White Blood Count 5.8 T/CUMM (4-12)
[2018-06-11 06:05] LABS: Calcium 8.3 MG/DL (8.5-10.1); Osmolality,Calculated 289.4 MOS/KG (273-304); Potassium 4.3 MMOL/L (3.5-5.1)
[2018-06-11] MEDS: LEVOTHYROXINE 75 MCG TABLET PO SCH (06:13)
[2018-06-11] MEDS: INSULIN REGULAR 100 UNIT/ML SUBCUT SCH ×3 (08:18→15:50)
[2018-06-11] MEDS: FUROSEMIDE 40 MG TABLET PO SCH ×2 (08:51→19:38)
[2018-06-11] MEDS: AZTREONAM 2,000 MG in SYRINGE 1 EACH IV SCH (08:55)
[2018-06-11] MEDS: TOLTERODINE LA 4 MG CAPSULE PO SCH (10:11)
[2018-06-11] MEDS: GABAPENTIN 300 MG CAPSULE PO SCH (10:11)
[2018-06-11] MEDS: POTASSIUM CHLORIDE 20 MEQ TABLET PO SCH (10:11)
[2018-06-11] MEDS: FLUoxetine 20 MG CAPSULE PO SCH (10:11)
[2018-06-11] MEDS: MORPHINE ER 30 MG TABLET PO SCH (10:12)
[2018-06-11] MEDS: FAMOTIDINE 20 MG TABLET PO SCH (10:12)
[2018-06-11] MEDS: ALLOPURINOL 100 MG TABLET PO SCH (10:12)
[2018-06-11] MEDS: CIPROFLOXACIN 500 MG TABLET PO SCH (10:12)
[2018-06-11] MEDS: PANTOPRAZOLE 40 MG TABLET PO SCH (10:13)
[2018-06-11 15:31] VITALS: BP 126/46
[2018-06-11] MEDS: SODIUM HYPOCHLORITE 0.25% IRRIG 473 ML BOTTLE TOP SCH (15:40)
== END 2018-06-11 16:30 | disposition swing bed (61) | DRG 602 ==
LOC: EDBD → EDUNIT# → N.ED 15:32 → N.EDINP 18:20 → SUATTDRO 18:23 → N.3E 18:55
PROVIDERS: ADMIT Internal Medicine; ATTEND Internal Medicine Nephrology

== ENCOUNTER 2020-05-16 15:46 | Inpatient (IN) ==
[2020-05-16] MEDS ORDERED: ACETAMINOPHEN 325 MG TABLET PO PRN (20:18)
[2020-05-16] MEDS ORDERED: ONDANSETRON 4 MG/2 ML VIAL IV PRN (20:18)
[2020-05-16] MEDS ORDERED: GLUCAGON 1 MG VIAL IM PRN (20:22)
[2020-05-16] MEDS ORDERED: DEXTROSE 50% 25 GM/50 ML VIAL IV PRN (20:22)
[2020-05-16] MEDS ORDERED: DOPamine 800 MG/250 ML PREMIX IV SCH (20:30)
[2020-05-16 20:55] LABS: Bacteria,Urine Occasional /HPF (Few); Bilirubin,Urine Negative (Negative); Blood, Urine Small mg/dL (Negative); Glucose,Urine (UA) Negative (Negative); Ketones,Urine Negative (Negative); Mucus,Urine Occasional /LPF (Occasional); Nitrite,Urine Negative (Negative); Protein,Urine Negative; RBC,Urine 2 /HPF (0-4); Squamous Epithelial Cell,Urine Occasional /HPF (0-10); Urine Appearance CLEAR (Clear); Urine Color Straw (Yellow); Urine Specific Gravity 1.005 (1.001-1.035); Urine Urobilinogen < 2.0 EU/DL (0.2-1.0); WBC,Urine 10 /HPF (0-6)
[2020-05-16] MEDS ORDERED: FAMOTIDINE 20 MG TABLET PO SCH (21:00)
[2020-05-16] MEDS ORDERED: cefTRIAXone 1,000 MG in SYRINGE 1 EACH IV SCH (21:00)
[2020-05-16 21:07] LABS: Basophils # 0.1 10*3/uL (0.0-0.2); Basophils % 0.2 % (0.0-0.8); Eosinophils # 0.1 10*3/uL (0.0-0.87); Eosinophils % 0.5 % (0.00-10.9); Hemoglobin 7.6 GM/DL (12.0-16.0); Immature Granulocytes % 4.1 %; Immature Granulocytes Absolute 1.05 #; Lymphocytes % 7.6 % (21.3-54.2); Mean Corpuscular HGB Conc 30.4 GM/DL (32-36); Mean Corpuscular Volume 87.1 FL (87-102); Mean Platelet Volume 10.4 FL (9.6-12.0); Monocytes % 5.2 % (1.7-12.7); Neutrophils % 82.4 % (38.7-73.9); Platelet Count 280 T/CUMM (130-400); Red Blood Count 2.87 MC/CUMM (3.8-5.5); Red Cell Distribution Width 15.5 % (9.3-17.3); White Blood Count 25.9 T/CUMM (4-12)
[2020-05-16] MEDS: LACTATED RINGERS 1,000 ML IV SCH (21:09)
[2020-05-16] MEDS ORDERED: SODIUM CHLORIDE 0.9% 500 ML IV ONE (21:10)
[2020-05-16 21:30] LABS: Alanine Aminotransferase < 9 U/L (13-56); Albumin 1.9 G/DL (3.4-5.0); Alkaline Phosphatase 167 U/L (45-117); Aspartate Amino Transferase 13 U/L (0-37); Bilirubin,Total < 0.39 MG/DL (0.2-1.0); Blood Urea Nitrogen 77 MG/DL (7-18); Calcium 7.8 MG/DL (8.5-10.1); Estimated Glom Filtration Rate 18 ML/MIN; Glucose 169 MG/DL (74-106); Osmolality,Calculated 292.4 MOS/KG (273-304); Total Protein 6.5 G/DL (6.4-8.3)
[2020-05-16] MEDS: ENOXAPARIN 30 MG/0.3 ML SYRINGE SUBCUT SCH (21:44)
[2020-05-16] MEDS: INSULIN LISPRO 100 UNIT/ML SUBCUT SCH (21:44)
[2020-05-16 22:30] LABS: Lymphocytes 9 % (20-55); Metamyelocytes 1 %; Platelet Estimate Normal; Segmented Neutrophils 86 % (50-85); Total Cells Counted 100
[2020-05-16 22:31] LABS: Anisocytosis 1+; Macrocytosis 1+; Ovalocytes Few
[2020-05-17 06:43] LABS: Basophils # 0.1 10*3/uL (0.0-0.2); Basophils % 0.2 % (0.0-0.8); Eosinophils # 0.5 10*3/uL (0.0-0.87); Eosinophils % 2.1 % (0.00-10.9); Hematocrit 24.9 VOL% (35.7-47.0); Hemoglobin 7.7 GM/DL (12.0-16.0); Immature Granulocytes % 4.5 %; Lymphocytes # 1.8 10*3/uL (1.4-4.0); Lymphocytes % 8.4 % (21.3-54.2); Mean Corpuscular HGB Conc 30.9 GM/DL (32-36); Mean Corpuscular Volume 85.6 FL (87-102); Mean Platelet Volume 10.3 FL (9.6-12.0); Monocytes % 5.1 % (1.7-12.7); Neutrophils % 79.7 % (38.7-73.9); Platelet Count 265 T/CUMM (130-400); Red Blood Count 2.91 MC/CUMM (3.8-5.5); Red Cell Distribution Width 15.5 % (9.3-17.3)
[2020-05-17 07:05] LABS: Anisocytosis 1+; Band Neutrophils 7 % (0-10); Hypochromasia 1+; Lymphocytes 8 % (20-55); Microcytosis 1+; Ovalocytes Slight; Segmented Neutrophils 82 % (50-85); Total Cells Counted 100
[2020-05-17 07:06] LABS: Platelet Estimate Normal
[2020-05-17 07:16] LABS: Osmolality,Calculated 288.4 MOS/KG (273-304)
[2020-05-17] MEDS: INSULIN LISPRO 100 UNIT/ML SUBCUT SCH ×4 (08:18→22:06)
[2020-05-17] MEDS: FAMOTIDINE 20 MG TABLET PO SCH (08:44)
[2020-05-17] MEDS: LACTATED RINGERS 1,000 ML IV SCH (08:46)
[2020-05-17] MEDS ORDERED: cefTRIAXone 1,000 MG in SYRINGE 1 EACH IV SCH (15:00)
[2020-05-17] MEDS: NYSTATIN POWDER 15 GM BOTTLE TOP SCH ×2 (15:06→21:17)
[2020-05-17] MEDS: MENTHOL/ZINC OXIDE OINT 71 GM JAR TOP SCH ×2 (15:06→21:16)
[2020-05-17] MEDS: ENOXAPARIN 30 MG/0.3 ML SYRINGE SUBCUT SCH (21:16)
[2020-05-17] MEDS: diphenhydrAMINE CAP 25 MG CAPSULE PO PRN (23:20)
[2020-05-18 05:28] LABS: Basophils # 0.1 10*3/uL (0.0-0.2); Basophils % 0.2 % (0.0-0.8); Hematocrit 24.8 VOL% (35.7-47.0); Hemoglobin 7.7 GM/DL (12.0-16.0); Immature Granulocytes % 2.8 %; Immature Granulocytes Absolute 0.74 #; Lymphocytes # 1.5 10*3/uL (1.4-4.0); Lymphocytes % 5.6 % (21.3-54.2); Mean Corpuscular Volume 85.5 FL (87-102); Mean Platelet Volume 10.3 FL (9.6-12.0); Monocytes % 3.6 % (1.7-12.7); Neutrophils % 87.8 % (38.7-73.9); Platelet Count 325 T/CUMM (130-400); Red Cell Distribution Width 15.6 % (9.3-17.3); White Blood Count 26.5 T/CUMM (4-12)
[2020-05-18 05:45] LABS: Calcium 8.5 MG/DL (8.5-10.1); Osmolality,Calculated 299.2 MOS/KG (273-304)
[2020-05-18 05:55] LABS: Band Neutrophils 1 % (0-10); Lymphocytes 6 % (20-55); Platelet Estimate Adequate; Segmented Neutrophils 84 % (50-85); Total Cells Counted 100
[2020-05-18 05:56] LABS: Hypochromasia 2+; Microcytosis Slight; Ovalocytes Slight
[2020-05-18] MEDS: INSULIN LISPRO 100 UNIT/ML SUBCUT SCH ×4 (07:44→20:32)
[2020-05-18] MEDS: FAMOTIDINE 20 MG TABLET PO SCH (08:44)
[2020-05-18] MEDS: LEVOTHYROXINE 75 MCG TABLET PO SCH (08:44)
[2020-05-18] MEDS: NYSTATIN POWDER 15 GM BOTTLE TOP SCH ×3 (08:45→20:32)
[2020-05-18] MEDS: MENTHOL/ZINC OXIDE OINT 71 GM JAR TOP SCH ×2 (08:45→20:32)
[2020-05-18] MEDS ORDERED: INFLUENZA VIRUS VACCINE 0.5 ML SYRINGE IM ONE (11:45)
[2020-05-18] MEDS: MEROPENEM 500 MG in SODIUM CHLORIDE 0.9% 100 ML IV SCH ×2 (11:47→20:32)
[2020-05-18] MEDS: ENOXAPARIN 30 MG/0.3 ML SYRINGE SUBCUT SCH (20:32)
[2020-05-19] MEDS: MEROPENEM 500 MG in SODIUM CHLORIDE 0.9% 100 ML IV SCH ×3 (03:51→18:18)
[2020-05-19 06:10] LABS: Basophils # 0.1 10*3/uL (0.0-0.2); Basophils % 0.2 % (0.0-0.8); Hematocrit 22.6 VOL% (35.7-47.0); Immature Granulocytes % 3.3 %; Immature Granulocytes Absolute 0.85 #; Lymphocytes # 1.8 10*3/uL (1.4-4.0); Lymphocytes % 6.9 % (21.3-54.2); Mean Corpuscular Volume 84.3 FL (87-102); Mean Platelet Volume 10.1 FL (9.6-12.0); Monocytes % 4.5 % (1.7-12.7); Neutrophils % 85.1 % (38.7-73.9); Platelet Count 369 T/CUMM (130-400); Red Blood Count 2.68 MC/CUMM (3.8-5.5); Red Cell Distribution Width 15.7 % (9.3-17.3); White Blood Count 25.8 T/CUMM (4-12)
[2020-05-19 06:27] LABS: Calcium 8.2 MG/DL (8.5-10.1)
[2020-05-19 06:56] LABS: Hypochromasia 1+; Lymphocytes 7 % (20-55); Microcytosis 1+; Segmented Neutrophils 90 % (50-85); Total Cells Counted 100
[2020-05-19 06:57] LABS: Polychromasia Slight
[2020-05-19] MEDS: MENTHOL/ZINC OXIDE OINT 71 GM JAR TOP SCH ×2 (12:29→21:41)
[2020-05-19] MEDS: FAMOTIDINE 20 MG TABLET PO SCH (12:29)
[2020-05-19] MEDS: LEVOTHYROXINE 75 MCG TABLET PO SCH (12:29)
[2020-05-19] MEDS: INSULIN LISPRO 100 UNIT/ML SUBCUT SCH ×3 (12:30→21:00)
[2020-05-19] MEDS ORDERED: AMPICILLIN INJ 500 MG in SODIUM CHLORIDE 0.9% 100 ML IV SCH (12:30)
[2020-05-19] MEDS: NYSTATIN POWDER 15 GM BOTTLE TOP SCH ×3 (12:30→21:41)
[2020-05-19] MEDS ORDERED: AMPICILLIN 500 MG CAPSULE PO SCH ×2 (13:00→21:00)
[2020-05-19] MEDS: ENOXAPARIN 30 MG/0.3 ML SYRINGE SUBCUT SCH (21:38)
[2020-05-19] MEDS: AMPICILLIN 500 MG CAPSULE PO SCH (21:40)
[2020-05-20] MEDS: MEROPENEM 500 MG in SODIUM CHLORIDE 0.9% 100 ML IV SCH ×3 (04:54→18:22)
[2020-05-20 05:50] LABS: Basophils # 0.1 10*3/uL (0.0-0.2); Basophils % 0.3 % (0.0-0.8); Eosinophils # 0.1 10*3/uL (0.0-0.87); Eosinophils % 0.5 % (0.00-10.9); Immature Granulocytes % 5.6 %; Lymphocytes # 2.3 10*3/uL (1.4-4.0); Lymphocytes % 10.7 % (21.3-54.2); Mean Corpuscular HGB Conc 30.4 GM/DL (32-36); Mean Corpuscular Volume 86.5 FL (87-102); Mean Platelet Volume 9.7 FL (9.6-12.0); Monocytes % 5.1 % (1.7-12.7); NRBC # 0.02 10*3/uL; Neutrophils % 77.8 % (38.7-73.9); Platelet Count 428 T/CUMM (130-400); Red Blood Count 2.66 MC/CUMM (3.8-5.5); Red Cell Distribution Width 15.7 % (9.3-17.3); White Blood Count 21.6 T/CUMM (4-12)
[2020-05-20 06:17] LABS: Eosinophils 1 % (0-10); Hypochromasia Slight; Lymphocytes 6 % (20-55); Platelet Estimate Increased; Segmented Neutrophils 88 % (50-85); Total Cells Counted 100
[2020-05-20 06:22] LABS: Calcium 7.8 MG/DL (8.5-10.1); Osmolality,Calculated 298.5 MOS/KG (273-304)
[2020-05-20] MEDS: INSULIN LISPRO 100 UNIT/ML SUBCUT SCH ×4 (08:23→22:26)
[2020-05-20] MEDS: FAMOTIDINE 20 MG TABLET PO SCH (09:31)
[2020-05-20] MEDS: LEVOTHYROXINE 75 MCG TABLET PO SCH (09:31)
[2020-05-20] MEDS: AMPICILLIN 500 MG CAPSULE PO SCH ×2 (09:32→23:00)
[2020-05-20] MEDS ORDERED: SODIUM CHLORIDE 0.9% 1,000 ML IV PRN (10:08)
[2020-05-20] MEDS: MENTHOL/ZINC OXIDE OINT 71 GM JAR TOP SCH ×2 (12:59→22:26)
[2020-05-20] MEDS: NYSTATIN POWDER 15 GM BOTTLE TOP SCH ×3 (12:59→22:26)
[2020-05-20 22:09] LABS: Hematocrit 26.5 VOL% (35.7-47.0); Hemoglobin 8.1 GM/DL (12.0-16.0)
[2020-05-20] MEDS: ENOXAPARIN 30 MG/0.3 ML SYRINGE SUBCUT SCH (22:25)
[2020-05-21] MEDS: MEROPENEM 500 MG in SODIUM CHLORIDE 0.9% 100 ML IV SCH ×3 (03:48→18:20)
[2020-05-21] MEDS: INSULIN LISPRO 100 UNIT/ML SUBCUT SCH ×4 (08:54→20:56)
[2020-05-21] MEDS: FAMOTIDINE 20 MG TABLET PO SCH (09:18)
[2020-05-21] MEDS: MENTHOL/ZINC OXIDE OINT 71 GM JAR TOP SCH ×2 (09:18→20:54)
[2020-05-21] MEDS: NYSTATIN POWDER 15 GM BOTTLE TOP SCH ×3 (09:18→20:54)
[2020-05-21] MEDS: LEVOTHYROXINE 75 MCG TABLET PO SCH (09:18)
[2020-05-21] MEDS: AMPICILLIN 500 MG CAPSULE PO SCH ×2 (11:59→20:54)
[2020-05-21] MEDS ORDERED: MELATONIN 3 MG TABLET PO PRN (16:19)
[2020-05-21] MEDS ORDERED: diphenhydrAMINE 2% CREAM 28 GM TUBE TOP PRN (16:20)
[2020-05-21] MEDS: diphenhydrAMINE CAP 25 MG CAPSULE PO PRN (20:53)
[2020-05-21] MEDS: ENOXAPARIN 30 MG/0.3 ML SYRINGE SUBCUT SCH (20:53)
[2020-05-22] MEDS: MEROPENEM 500 MG in SODIUM CHLORIDE 0.9% 100 ML IV SCH (02:22)
[2020-05-22 06:57] LABS: Basophils # 0.1 10*3/uL (0.0-0.2); Basophils % 0.3 % (0.0-0.8); Eosinophils # 0.2 10*3/uL (0.0-0.87); Eosinophils % 1.2 % (0.00-10.9); Hematocrit 26.3 VOL% (35.7-47.0); Hemoglobin 8.2 GM/DL (12.0-16.0); Immature Granulocytes % 7.3 %; Lymphocytes # 1.6 10*3/uL (1.4-4.0); Lymphocytes % 10.5 % (21.3-54.2); Mean Corpuscular HGB Conc 31.2 GM/DL (32-36); Mean Corpuscular Volume 85.4 FL (87-102); Mean Platelet Volume 9.3 FL (9.6-12.0); Monocytes % 5.7 % (1.7-12.7); NRBC # 0.02 10*3/uL; Platelet Count 463 T/CUMM (130-400); Red Blood Count 3.08 MC/CUMM (3.8-5.5); Red Cell Distribution Width 15.9 % (9.3-17.3); White Blood Count 15.1 T/CUMM (4-12)
[2020-05-22 07:19] LABS: Calcium 8.4 MG/DL (8.5-10.1); Osmolality,Calculated 288.4 MOS/KG (273-304)
[2020-05-22 07:20] LABS: Band Neutrophils 3 % (0-10); Eosinophils 2 % (0-10); Hypochromasia 2+; Lymphocytes 6 % (20-55); Microcytosis Slight; Platelet Estimate Adequate; Segmented Neutrophils 82 % (50-85); Total Cells Counted 100
[2020-05-22] MEDS: INSULIN LISPRO 100 UNIT/ML SUBCUT SCH ×3 (07:23→17:16)
[2020-05-22] MEDS: FAMOTIDINE 20 MG TABLET PO SCH (08:32)
[2020-05-22] MEDS: NYSTATIN POWDER 15 GM BOTTLE TOP SCH ×2 (08:32→14:00)
[2020-05-22] MEDS: AMPICILLIN 500 MG CAPSULE PO SCH (08:32)
[2020-05-22] MEDS: MENTHOL/ZINC OXIDE OINT 71 GM JAR TOP SCH (08:32)
[2020-05-22] MEDS: LEVOTHYROXINE 75 MCG TABLET PO SCH (08:33)
[2020-05-22 11:44] VITALS: BP 148/70
[2020-05-22] MEDS ORDERED: LEVOFLOXACIN 500 MG TABLET PO SCH (12:00)
[2020-05-22] MEDS ORDERED: INFLUENZA VIRUS VACCINE 0.5 ML SYRINGE IM ONE (16:30)
[2020-05-22] MEDS ORDERED: AMOXICILLIN 500 MG CAPSULE PO SCH (17:00)
== END 2020-05-22 18:54 | disposition swing bed (61) | DRG 698 ==
LOC: N.CC 20:08 → SUATTDRO 20:08 → N.3E 05-17 16:09
PROVIDERS: ADMIT Internal Medicine; ATTEND Internal Medicine

== ENCOUNTER 2021-05-14 05:55 | Inpatient (IN) ==
[2021-05-14 06:32] LABS: ABG Base Excess -4.9 MMOL/L (-2.5-2.5); ABG HCO3 19.5 MMOL/L (20-26); ABG Oxygen Saturation 98.7 % (95-100); ABG PCO2 33.8 MM HG (35-48); ABG PH 7.379 (7.35-7.45); ABG PO2 161.7 MM HG (80-95); ABG TCO2 20.5 MMOL/L (23-27)
[2021-05-14 06:40] LABS: Basophils % 0.2 % (0.0-0.8); Hematocrit 34.8 VOL% (35.7-47.0); Hemoglobin 10.8 GM/DL (12.0-16.0); Immature Granulocytes % 0.5 %; Immature Granulocytes Absolute 0.07 #; Lymphocytes # 0.7 10*3/uL (1.4-4.0); Lymphocytes % 4.9 % (21.3-54.2); Mean Corpuscular Volume 90.9 FL (87-102); Mean Platelet Volume 10.4 FL (9.6-12.0); Neutrophils % 91.4 % (38.7-73.9); Platelet Count 196 T/CUMM (130-400); Red Blood Count 3.83 MC/CUMM (3.8-5.5); Red Cell Distribution Width 16.5 % (9.3-17.3); White Blood Count 14.6 T/CUMM (4-12)
[2021-05-14 07:02] LABS: Band Neutrophils 10 % (0-10); Hypochromasia 1+; Lymphocytes 7 % (20-55); Microcytosis 1+; Platelet Estimate Adequate; Segmented Neutrophils 81 % (50-85); Total Cells Counted 100
[2021-05-14 07:03] LABS: Alanine Aminotransferase < 9 U/L (13-56); Albumin 2.7 G/DL (3.4-5.0); Alkaline Phosphatase 81 U/L (45-117); Aspartate Amino Transferase 9 U/L (0-37); Blood Urea Nitrogen 46 MG/DL (7-18); Calcium 8.2 MG/DL (8.5-10.1); Carbon Dioxide 20 MMOL/L (21-32); Estimated Glom Filtration Rate 25 ML/MIN; Glucose 191 MG/DL (74-106); Osmolality,Calculated 286.1 MOS/KG (273-304); Potassium 4.8 MMOL/L (3.5-5.1); Sodium 135 MMOL/L (136-145); Total Protein 7.6 G/DL (6.4-8.2)
[2021-05-14 07:07] LABS: Amorphous Crystals,Urine Few /HPF (Few); Bacteria,Urine Occasional /HPF (Few); Bilirubin,Urine Negative (Negative); Blood, Urine Moderate mg/dL (Negative); Glucose,Urine (UA) Negative (Negative); Ketones,Urine Negative (Negative); Mucus,Urine Moderate /LPF (Occasional); Nitrite,Urine Negative (Negative); Protein,Urine Negative; RBC,Urine 13 /HPF (0-4); Squamous Epithelial Cell,Urine Occasional /HPF (0-10); Urine Appearance CLOUDY (Clear); Urine Color Yellow (Yellow); Urine Specific Gravity 1.009 (1.001-1.035); Urine Urobilinogen < 2.0 EU/DL (0.2-1.0)
[2021-05-14] MEDS ORDERED: ONDANSETRON 4 MG/2 ML VIAL IV PRN (07:56)
[2021-05-14] MEDS ORDERED: ALUMINUM/MAGNES/SIMETH MAX STR 30 ML UDCUP PO PRN (07:56)
[2021-05-14] MEDS ORDERED: ALBUTEROL 2.5 MG/3 ML NEB RESP TX PRN (07:56)
[2021-05-14] MEDS ORDERED: PANTOPRAZOLE 40 MG VIAL IV SCH (08:00)
[2021-05-14] MEDS ORDERED: GLUCAGON 1 MG VIAL IM PRN (08:00)
[2021-05-14] MEDS ORDERED: DEXTROSE 50% 25 GM/50 ML VIAL IV PRN (08:00)
[2021-05-14] MEDS ORDERED: NOREPINEPHRINE 8 MG in SODIUM CHLORIDE 0.9% 242 ML IV PRN (08:22)
[2021-05-14] MEDS: MEROPENEM 500 MG in SODIUM CHLORIDE 0.9% 100 ML IV SCH ×2 (09:25→17:31)
[2021-05-14] MEDS: LEVOFLOXACIN INJ 750 MG/150 ML PREMIX IV SCH (09:25)
[2021-05-14] MEDS: ENOXAPARIN 30 MG/0.3 ML SYRINGE SUBCUT SCH (09:25)
[2021-05-14] MEDS: INSULIN LISPRO 100 UNIT/ML SUBCUT SCH ×2 (12:16→17:18)
[2021-05-14] MEDS: ZINC OXIDE 16% PASTE 57 GM TUBE TOP SCH ×2 (13:33→21:21)
[2021-05-15] MEDS: INSULIN LISPRO 100 UNIT/ML SUBCUT SCH ×4 (00:30→18:34)
[2021-05-15] MEDS: NYSTATIN POWDER 15 GM BOTTLE TOP SCH ×3 (01:00→20:37)
[2021-05-15] MEDS: diphenhydrAMINE CAP 25 MG CAPSULE PO PRN ×4 (01:00→22:14)
[2021-05-15] MEDS: MEROPENEM 500 MG in SODIUM CHLORIDE 0.9% 100 ML IV SCH ×3 (02:42→18:33)
[2021-05-15 03:54] LABS: ABG Base Excess -4.7 MMOL/L (-2.5-2.5); ABG HCO3 20.5 MMOL/L (20-26); ABG Oxygen Saturation 97.6 % (95-100); ABG PH 7.375 (7.35-7.45); ABG PO2 94.1 MM HG (80-95); ABG TCO2 18.5 MMOL/L (23-27)
[2021-05-15 06:42] LABS: Basophils % 0.3 % (0.0-0.8); Eosinophils # 0.1 10*3/uL (0.0-0.87); Eosinophils % 0.7 % (0.00-10.9); Hematocrit 27.4 VOL% (35.7-47.0); Immature Granulocytes % 0.5 %; Immature Granulocytes Absolute 0.07 #; Lymphocytes # 1.6 10*3/uL (1.4-4.0); Lymphocytes % 10.9 % (21.3-54.2); Mean Corpuscular Volume 90.4 FL (87-102); Mean Platelet Volume 10.3 FL (9.6-12.0); Monocytes % 3.6 % (1.7-12.7); Red Cell Distribution Width 16.5 % (9.3-17.3); White Blood Count 14.7 T/CUMM (4-12)
[2021-05-15 06:54] LABS: Hemoglobin 8.5 GM/DL (12.0-16.0); Red Blood Count 3.03 MC/CUMM (3.8-5.5)
[2021-05-15 06:55] LABS: Platelet Count 153 T/CUMM (130-400)
[2021-05-15 07:11] LABS: Eosinophils 2 % (0-10); Hypochromasia 1+; Lymphocytes 9 % (20-55); Microcytosis 1+; Platelet Estimate Adequate; Segmented Neutrophils 83 % (50-85); Total Cells Counted 100
[2021-05-15 08:07] LABS: Alanine Aminotransferase < 9 U/L (13-56); Albumin 2.2 G/DL (3.4-5.0); Alkaline Phosphatase 70 U/L (45-117); Aspartate Amino Transferase 8 U/L (0-37); Bilirubin,Total < 0.39 MG/DL (0.20-1.00); Blood Urea Nitrogen 56 MG/DL (7-18); Calcium 8.1 MG/DL (8.5-10.1); Carbon Dioxide 21 MMOL/L (21-32); Estimated Glom Filtration Rate 23 ML/MIN; Glucose 110 MG/DL (74-106); Potassium 4.6 MMOL/L (3.5-5.1); Sodium 136 MMOL/L (136-145); Total Protein 6.3 G/DL (6.4-8.2)
[2021-05-15] MEDS ORDERED: MAGNESIUM SULF RIDER 2 GM/50 ML PREMIX IV ONE (08:39)
[2021-05-15] MEDS ORDERED: PNEUMOCOCCAL VACCINE (23 VALENT) 0.5 ML VIAL IM ONE (09:00)
[2021-05-15] MEDS ORDERED: INFLUENZA VIRUS VACCINE 0.5 ML SYRINGE IM ONE (09:00)
[2021-05-15] MEDS: LEVOTHYROXINE 75 MCG TABLET PO SCH (09:12)
[2021-05-15] MEDS: allopurinoL 100 MG TABLET PO SCH (09:12)
[2021-05-15] MEDS: FLUoxetine 10 MG CAPSULE PO SCH (09:12)
[2021-05-15] MEDS: ENOXAPARIN 30 MG/0.3 ML SYRINGE SUBCUT SCH (09:13)
[2021-05-15] MEDS: PANTOPRAZOLE 40 MG TABLET PO SCH (09:13)
[2021-05-15] MEDS: ZINC OXIDE 16% PASTE 57 GM TUBE TOP SCH ×2 (09:14→20:37)
[2021-05-16] MEDS: INSULIN LISPRO 100 UNIT/ML SUBCUT SCH ×5 (00:31→16:55)
[2021-05-16] MEDS: MEROPENEM 500 MG in SODIUM CHLORIDE 0.9% 100 ML IV SCH (00:31)
[2021-05-16] MEDS: diphenhydrAMINE CAP 25 MG CAPSULE PO PRN ×3 (01:55→20:47)
[2021-05-16] MEDS ORDERED: GABAPENTIN 600 MG TABLET PO ONE (02:58)
[2021-05-16 06:15] LABS: Basophils % 0.2 % (0.0-0.8); Hematocrit 25.8 VOL% (35.7-47.0); Hemoglobin 8.1 GM/DL (12.0-16.0); Immature Granulocytes % 0.5 %; Immature Granulocytes Absolute 0.07 #; Lymphocytes # 1.6 10*3/uL (1.4-4.0); Lymphocytes % 10.7 % (21.3-54.2); Mean Corpuscular HGB Conc 31.4 GM/DL (32-36); Mean Corpuscular Volume 89.6 FL (87-102); Mean Platelet Volume 9.8 FL (9.6-12.0); Monocytes % 4.2 % (1.7-12.7); Neutrophils % 84.4 % (38.7-73.9); Platelet Count 161 T/CUMM (130-400); Red Blood Count 2.88 MC/CUMM (3.8-5.5); Red Cell Distribution Width 16.5 % (9.3-17.3); White Blood Count 14.9 T/CUMM (4-12)
[2021-05-16 06:31] LABS: Calcium 7.7 MG/DL (8.5-10.1); Osmolality,Calculated 291.7 MOS/KG (273-304); Potassium 4.5 MMOL/L (3.5-5.1)
[2021-05-16] MEDS: LEVOFLOXACIN INJ 750 MG/150 ML PREMIX IV SCH (09:54)
[2021-05-16] MEDS: allopurinoL 100 MG TABLET PO SCH (09:56)
[2021-05-16] MEDS: PANTOPRAZOLE 40 MG TABLET PO SCH (09:56)
[2021-05-16] MEDS: ZINC OXIDE 16% PASTE 57 GM TUBE TOP SCH ×2 (09:56→20:39)
[2021-05-16] MEDS: FLUoxetine 10 MG CAPSULE PO SCH (09:56)
[2021-05-16] MEDS: NYSTATIN POWDER 15 GM BOTTLE TOP SCH ×2 (09:56→20:39)
[2021-05-16] MEDS: LEVOTHYROXINE 75 MCG TABLET PO SCH (09:56)
[2021-05-16] MEDS: GABAPENTIN 300 MG CAPSULE PO SCH ×2 (09:56→20:38)
[2021-05-16] MEDS: diphenhydrAMINE 2% CREAM 28 GM TUBE TOP PRN ×2 (09:57→20:15)
[2021-05-16] MEDS: ENOXAPARIN 30 MG/0.3 ML SYRINGE SUBCUT SCH (09:57)
[2021-05-17] MEDS: INSULIN LISPRO 100 UNIT/ML SUBCUT SCH ×5 (00:45→21:46)
[2021-05-17 05:04] LABS: Basophils % 0.3 % (0.0-0.8); Hematocrit 26.7 VOL% (35.7-47.0); Hemoglobin 8.3 GM/DL (12.0-16.0); Immature Granulocytes % 0.7 %; Immature Granulocytes Absolute 0.07 #; Lymphocytes # 1.7 10*3/uL (1.4-4.0); Lymphocytes % 16.5 % (21.3-54.2); Mean Corpuscular HGB Conc 31.1 GM/DL (32-36); Mean Corpuscular Volume 89.3 FL (87-102); Mean Platelet Volume 10.2 FL (9.6-12.0); Monocytes % 6.5 % (1.7-12.7); Platelet Count 184 T/CUMM (130-400); Red Blood Count 2.99 MC/CUMM (3.8-5.5); Red Cell Distribution Width 16.4 % (9.3-17.3); White Blood Count 10.4 T/CUMM (4-12)
[2021-05-17 05:40] LABS: Calcium 7.9 MG/DL (8.5-10.1); Osmolality,Calculated 285.1 MOS/KG (273-304); Potassium 4.6 MMOL/L (3.5-5.1)
[2021-05-17] MEDS ORDERED: AZTREONAM 1,000 MG in SODIUM CHLORIDE 0.9% 100 ML IV ONE ×2 (08:30→13:00)
[2021-05-17] MEDS: ZINC OXIDE 16% PASTE 57 GM TUBE TOP SCH ×2 (09:06→21:46)
[2021-05-17] MEDS: NYSTATIN POWDER 15 GM BOTTLE TOP SCH ×2 (09:06→21:46)
[2021-05-17] MEDS: PANTOPRAZOLE 40 MG TABLET PO SCH (09:07)
[2021-05-17] MEDS: ENOXAPARIN 30 MG/0.3 ML SYRINGE SUBCUT SCH (09:07)
[2021-05-17] MEDS: LEVOTHYROXINE 75 MCG TABLET PO SCH (09:07)
[2021-05-17] MEDS: allopurinoL 100 MG TABLET PO SCH (09:07)
[2021-05-17] MEDS: FLUoxetine 10 MG CAPSULE PO SCH (09:07)
[2021-05-17] MEDS: GABAPENTIN 300 MG CAPSULE PO SCH ×2 (09:07→21:45)
[2021-05-17] MEDS: AZTREONAM 500 MG in SODIUM CHLORIDE 0.9% 100 ML IV SCH (21:46)
[2021-05-18 05:07] LABS: Basophils % 0.4 % (0.0-0.8); Hematocrit 27.3 VOL% (35.7-47.0); Hemoglobin 8.3 GM/DL (12.0-16.0); Immature Granulocytes % 1.2 %; Lymphocytes # 1.7 10*3/uL (1.4-4.0); Lymphocytes % 21.1 % (21.3-54.2); Mean Corpuscular HGB Conc 30.4 GM/DL (32-36); Mean Corpuscular Volume 90.7 FL (87-102); Mean Platelet Volume 10.1 FL (9.6-12.0); Monocytes % 10.1 % (1.7-12.7); Neutrophils % 67.2 % (38.7-73.9); Platelet Count 199 T/CUMM (130-400); Red Blood Count 3.01 MC/CUMM (3.8-5.5)
[2021-05-18 05:27] LABS: Calcium 8.3 MG/DL (8.5-10.1); Osmolality,Calculated 291.8 MOS/KG (273-304); Potassium 4.2 MMOL/L (3.5-5.1)
[2021-05-18] MEDS: INSULIN LISPRO 100 UNIT/ML SUBCUT SCH ×4 (07:47→20:21)
[2021-05-18] MEDS: allopurinoL 100 MG TABLET PO SCH (08:45)
[2021-05-18] MEDS: NYSTATIN POWDER 15 GM BOTTLE TOP SCH ×2 (08:45→20:31)
[2021-05-18] MEDS: LEVOTHYROXINE 75 MCG TABLET PO SCH (08:45)
[2021-05-18] MEDS: ZINC OXIDE 16% PASTE 57 GM TUBE TOP SCH ×2 (08:45→20:31)
[2021-05-18] MEDS: PANTOPRAZOLE 40 MG TABLET PO SCH (08:45)
[2021-05-18] MEDS: GABAPENTIN 300 MG CAPSULE PO SCH ×2 (08:45→20:30)
[2021-05-18] MEDS: ENOXAPARIN 30 MG/0.3 ML SYRINGE SUBCUT SCH (08:45)
[2021-05-18] MEDS: FLUoxetine 10 MG CAPSULE PO SCH (08:45)
[2021-05-18] MEDS: AZTREONAM 500 MG in SODIUM CHLORIDE 0.9% 100 ML IV SCH ×2 (11:28→20:31)
[2021-05-19 05:47] LABS: Calcium 8.4 MG/DL (8.5-10.1); Osmolality,Calculated 294.5 MOS/KG (273-304); Potassium 4.3 MMOL/L (3.5-5.1)
[2021-05-19] MEDS: INSULIN LISPRO 100 UNIT/ML SUBCUT SCH ×4 (07:59→23:18)
[2021-05-19] MEDS: AZTREONAM 500 MG in SODIUM CHLORIDE 0.9% 100 ML IV SCH ×2 (08:21→20:10)
[2021-05-19] MEDS: LEVOTHYROXINE 75 MCG TABLET PO SCH (08:22)
[2021-05-19] MEDS: ZINC OXIDE 16% PASTE 57 GM TUBE TOP SCH ×2 (08:22→20:10)
[2021-05-19] MEDS: PANTOPRAZOLE 40 MG TABLET PO SCH (08:22)
[2021-05-19] MEDS: allopurinoL 100 MG TABLET PO SCH (08:22)
[2021-05-19] MEDS: NYSTATIN POWDER 15 GM BOTTLE TOP SCH ×2 (08:22→20:10)
[2021-05-19] MEDS: FLUoxetine 10 MG CAPSULE PO SCH (08:22)
[2021-05-19] MEDS: GABAPENTIN 300 MG CAPSULE PO SCH ×2 (08:22→20:09)
[2021-05-19] MEDS: ENOXAPARIN 30 MG/0.3 ML SYRINGE SUBCUT SCH (08:22)
[2021-05-20 05:33] LABS: Basophils % 0.4 % (0.0-0.8); Hematocrit 27.1 VOL% (35.7-47.0); Hemoglobin 8.1 GM/DL (12.0-16.0); Immature Granulocytes % 1.7 %; Immature Granulocytes Absolute 0.13 #; Lymphocytes # 1.8 10*3/uL (1.4-4.0); Lymphocytes % 22.7 % (21.3-54.2); Mean Corpuscular HGB Conc 29.9 GM/DL (32-36); Mean Corpuscular Volume 90.9 FL (87-102); Mean Platelet Volume 9.9 FL (9.6-12.0); Monocytes % 9.1 % (1.7-12.7); Neutrophils % 66.1 % (38.7-73.9); Platelet Count 247 T/CUMM (130-400); Red Blood Count 2.98 MC/CUMM (3.8-5.5); Red Cell Distribution Width 15.9 % (9.3-17.3); White Blood Count 7.7 T/CUMM (4-12)
[2021-05-20 05:48] LABS: Calcium 8.2 MG/DL (8.5-10.1); Potassium 4.6 MMOL/L (3.5-5.1)
[2021-05-20] MEDS: ZINC OXIDE 16% PASTE 57 GM TUBE TOP SCH (08:40)
[2021-05-20] MEDS: AZTREONAM 500 MG in SODIUM CHLORIDE 0.9% 100 ML IV SCH (08:41)
[2021-05-20] MEDS: NYSTATIN POWDER 15 GM BOTTLE TOP SCH (08:41)
[2021-05-20] MEDS: ENOXAPARIN 30 MG/0.3 ML SYRINGE SUBCUT SCH (08:41)
[2021-05-20] MEDS: INSULIN LISPRO 100 UNIT/ML SUBCUT SCH ×3 (08:41→16:11)
[2021-05-20] MEDS: FLUoxetine 10 MG CAPSULE PO SCH (08:42)
[2021-05-20] MEDS: PANTOPRAZOLE 40 MG TABLET PO SCH (08:42)
[2021-05-20] MEDS: allopurinoL 100 MG TABLET PO SCH (08:42)
[2021-05-20] MEDS: LEVOTHYROXINE 75 MCG TABLET PO SCH (08:42)
[2021-05-20] MEDS: GABAPENTIN 300 MG CAPSULE PO SCH (08:42)
[2021-05-20 17:33] VITALS: BP 130/56
== END 2021-05-20 17:59 | disposition swing bed (61) | DRG 871 ==
LOC: EDUNIT# → EDBD → N.ED 05:55 → N.EDINP 07:33 → SUATTDRO 07:33 → N.CC 08:15 → N.3E 05-16 16:51
PROVIDERS: ADMIT Internal Medicine; ATTEND Internal Medicine

== ENCOUNTER 2022-02-13 08:09 | Inpatient (IN) ==
[2022-02-13] MEDS ORDERED: SODIUM CHLORIDE 0.9% 1,000 ML IV STA (08:50)
[2022-02-13 09:19] LABS: Basophils % 0.2 % (0.0-0.8); Eosinophils % 0.2 % (0.00-10.9); Hematocrit 29.2 VOL% (35.7-47.0); Hemoglobin 8.8 GM/DL (12.0-16.0); Immature Granulocytes % 0.8 %; Immature Granulocytes Absolute 0.14 #; Lymphocytes # 1.4 10*3/uL (1.4-4.0); Lymphocytes % 7.4 % (21.3-54.2); Mean Corpuscular HGB Conc 30.1 GM/DL (32-36); Mean Corpuscular Volume 93.9 FL (87-102); Mean Platelet Volume 9.6 FL (9.6-12.0); Monocytes % 5.6 % (1.7-12.7); Neutrophils % 85.8 % (38.7-73.9); Platelet Count 272 T/CUMM (130-400); Red Blood Count 3.11 MC/CUMM (3.8-5.5); Red Cell Distribution Width 14.5 % (9.3-17.3); White Blood Count 18.4 T/CUMM (4-12)
[2022-02-13 09:30] LABS: PT Patient Result 11.5 SECS (10.5-12.0); Partial Thromboplastin Time 28.3 SECS (23.7-32.9)
[2022-02-13] MEDS ORDERED: LEVOFLOXACIN INJ 500 MG/100 ML PREMIX IV STA (09:36)
[2022-02-13 09:43] LABS: Alanine Aminotransferase < 9 U/L (13-56); Albumin 2.8 G/DL (3.4-5.0); Alkaline Phosphatase 99 U/L (45-117); Aspartate Amino Transferase 7 U/L (0-37); Bilirubin,Total < 0.39 MG/DL (0.20-1.00); Blood Urea Nitrogen 28 MG/DL (7-18); Calcium 8.1 MG/DL (8.5-10.1); Carbon Dioxide 24 MMOL/L (21-32); Chloride 111 MMOL/L (98-107); Glucose 139 MG/DL (74-106); Osmolality,Calculated 284.5 MOS/KG (273-304); Potassium 5.4 MMOL/L (3.5-5.1); Sodium 139 MMOL/L (136-145); Total Protein 6.8 G/DL (6.4-8.2)
[2022-02-13 09:52] LABS: Bacteria,Urine Few /HPF (Few); Hyaline Casts,Urine 3 /LPF (0-3); Mucus,Urine Occasional /LPF (Occasional); Squamous Epithelial Cell,Urine Occasional /HPF (0-10)
[2022-02-13 09:53] LABS: Protein,Urine Negative (Negative); Urine Appearance Clear (Clear); Urine Color Yellow (Yellow); Urine Specific Gravity 1.025 (1.001-1.035); Urine pH 5.5 (4.5-8.0)
[2022-02-13 09:54] LABS: Bilirubin,Urine Negative (Negative); Blood, Urine Trace mg/dL (Negative); Glucose,Urine (UA) Negative (Negative); Ketones,Urine Negative (Negative); Nitrite,Urine Positive (Negative); Urine Urobilinogen 0.2 eU/dL (<2.0)
[2022-02-13] MEDS ORDERED: HYDROmorphone 1 MG/1 ML SYRINGE IV STA (10:03)
[2022-02-13] MEDS ORDERED: ONDANSETRON 4 MG/2 ML VIAL IV STA (10:03)
[2022-02-13] MEDS ORDERED: guaiFENesin/DM ER 600-30 MG TABLET PO PRN (10:34)
[2022-02-13] MEDS ORDERED: ACETAMINOPHEN 325 MG TABLET PO PRN (10:34)
[2022-02-13] MEDS ORDERED: ONDANSETRON 4 MG/2 ML VIAL IV PRN (10:34)
[2022-02-13] MEDS ORDERED: GLUCAGON 1 MG VIAL IM PRN (10:34)
[2022-02-13] MEDS ORDERED: LEVOFLOXACIN INJ 250 MG/50 ML PREMIX IV STA (10:36)
[2022-02-13] MEDS ORDERED: DEXTROSE 10% 250 ML BAG IV PRN (10:59)
[2022-02-13] MEDS: ENOXAPARIN 30 MG/0.3 ML SYRINGE SUBCUT SCH (11:07)
[2022-02-13] MEDS ORDERED: CETIRIZINE 10 MG TABLET PO PRN (11:10)
[2022-02-13] MEDS ORDERED: LEVOFLOXACIN INJ 250 MG/50 ML PREMIX IV ONE (11:30)
[2022-02-13] MEDS: INSULIN LISPRO 100 UNIT/ML SUBCUT SCH ×3 (12:46→21:52)
[2022-02-13] MEDS: methylPREDNISolone SOD SUC 40 MG/1 ML VIAL IV SCH (13:51)
[2022-02-13] MEDS: ALBUTEROL 2.5 MG/3 ML NEB RESP TX SCH ×2 (14:05→20:30)
[2022-02-13] MEDS: GABAPENTIN 300 MG CAPSULE PO SCH ×2 (14:32→21:07)
[2022-02-13] MEDS: ASCORBIC ACID 500 MG TABLET PO SCH (21:07)
[2022-02-13] MEDS: buPROPion 75 MG TABLET PO SCH (21:07)
[2022-02-14] MEDS: ALBUTEROL 2.5 MG/3 ML NEB RESP TX SCH ×4 (00:30→19:26)
[2022-02-14] MEDS: methylPREDNISolone SOD SUC 40 MG/1 ML VIAL IV SCH ×4 (01:24→21:12)
[2022-02-14 06:07] LABS: Basophils % 0.1 % (0.0-0.8); Hematocrit 29.5 VOL% (35.7-47.0); Lymphocytes # 1.3 10*3/uL (1.4-4.0); Lymphocytes % 5.3 % (21.3-54.2); Mean Corpuscular HGB Conc 30.5 GM/DL (32-36); Mean Corpuscular Volume 93.7 FL (87-102); Mean Platelet Volume 9.7 FL (9.6-12.0); Monocytes # 0.7 10*3/uL (0.11-0.8); Monocytes % 2.6 % (1.7-12.7); Platelet Count 243 T/CUMM (130-400); Red Blood Count 3.15 MC/CUMM (3.8-5.5); Red Cell Distribution Width 14.2 % (9.3-17.3); White Blood Count 24.9 T/CUMM (4-12)
[2022-02-14 06:17] LABS: Calcium 8.5 MG/DL (8.5-10.1); Osmolality,Calculated 290.7 MOS/KG (273-304); Potassium 5.3 MMOL/L (3.5-5.1)
[2022-02-14 07:14] LABS: Lymphocytes 6 % (20-55); Platelet Estimate Adequate; Total Cells Counted 100
[2022-02-14] MEDS: INSULIN LISPRO 100 UNIT/ML SUBCUT SCH ×4 (09:04→21:12)
[2022-02-14] MEDS: buPROPion 75 MG TABLET PO SCH ×2 (09:05→21:11)
[2022-02-14] MEDS: ASCORBIC ACID 500 MG TABLET PO SCH ×2 (09:05→21:11)
[2022-02-14] MEDS: allopurinoL 100 MG TABLET PO SCH (09:05)
[2022-02-14] MEDS: FLUoxetine 10 MG CAPSULE PO SCH (09:05)
[2022-02-14] MEDS: LEVOTHYROXINE 75 MCG TABLET PO SCH (09:05)
[2022-02-14] MEDS: OXYBUTYNIN XL 10 MG TABLET PO SCH (09:05)
[2022-02-14] MEDS: PANTOPRAZOLE 40 MG TABLET PO SCH (09:05)
[2022-02-14] MEDS: GABAPENTIN 300 MG CAPSULE PO SCH ×3 (09:06→21:12)
[2022-02-14] MEDS: FUROSEMIDE 40 MG TABLET PO SCH (09:06)
[2022-02-14] MEDS: ENOXAPARIN 30 MG/0.3 ML SYRINGE SUBCUT SCH (10:35)
[2022-02-15] MEDS: methylPREDNISolone SOD SUC 40 MG/1 ML VIAL IV SCH ×3 (04:53→21:11)
[2022-02-15 05:40] LABS: Basophils % 0.1 % (0.0-0.8); Hemoglobin 8.2 GM/DL (12.0-16.0); Immature Granulocytes % 1.5 %; Lymphocytes # 1.1 10*3/uL (1.4-4.0); Lymphocytes % 5.6 % (21.3-54.2); Mean Corpuscular HGB Conc 30.4 GM/DL (32-36); Mean Corpuscular Volume 92.2 FL (87-102); Mean Platelet Volume 9.8 FL (9.6-12.0); Monocytes # 0.5 10*3/uL (0.11-0.8); Monocytes % 2.6 % (1.7-12.7); Neutrophils % 90.2 % (38.7-73.9); Platelet Count 255 T/CUMM (130-400); Red Blood Count 2.93 MC/CUMM (3.8-5.5); Red Cell Distribution Width 14.1 % (9.3-17.3); White Blood Count 19.4 T/CUMM (4-12)
[2022-02-15 05:58] LABS: Calcium 8.6 MG/DL (8.5-10.1); Potassium 4.9 MMOL/L (3.5-5.1)
[2022-02-15] MEDS: ALBUTEROL 2.5 MG/3 ML NEB RESP TX SCH ×4 (07:40→19:37)
[2022-02-15] MEDS: OXYBUTYNIN XL 10 MG TABLET PO SCH (09:18)
[2022-02-15] MEDS: allopurinoL 100 MG TABLET PO SCH (09:18)
[2022-02-15] MEDS: GABAPENTIN 300 MG CAPSULE PO SCH ×3 (09:18→21:10)
[2022-02-15] MEDS: buPROPion 75 MG TABLET PO SCH ×2 (09:18→21:10)
[2022-02-15] MEDS: ASCORBIC ACID 500 MG TABLET PO SCH ×2 (09:18→21:10)
[2022-02-15] MEDS: INSULIN LISPRO 100 UNIT/ML SUBCUT SCH ×4 (09:19→21:10)
[2022-02-15] MEDS: PANTOPRAZOLE 40 MG TABLET PO SCH (09:19)
[2022-02-15] MEDS: LEVOTHYROXINE 75 MCG TABLET PO SCH (09:19)
[2022-02-15] MEDS: FUROSEMIDE 40 MG TABLET PO SCH (09:19)
[2022-02-15] MEDS: FLUoxetine 10 MG CAPSULE PO SCH (09:19)
[2022-02-15] MEDS: LEVOFLOXACIN INJ 750 MG/150 ML PREMIX IV SCH (11:36)
[2022-02-15] MEDS: ENOXAPARIN 30 MG/0.3 ML SYRINGE SUBCUT SCH (11:36)
[2022-02-16] MEDS: ALBUTEROL 2.5 MG/3 ML NEB RESP TX SCH ×4 (00:28→19:06)
[2022-02-16] MEDS: methylPREDNISolone SOD SUC 40 MG/1 ML VIAL IV SCH ×3 (05:04→21:03)
[2022-02-16 06:39] LABS: Basophils % 0.2 % (0.0-0.8); Hematocrit 27.8 VOL% (35.7-47.0); Hemoglobin 8.4 GM/DL (12.0-16.0); Immature Granulocytes % 2.3 %; Lymphocytes # 1.1 10*3/uL (1.4-4.0); Lymphocytes % 8.1 % (21.3-54.2); Mean Corpuscular HGB Conc 30.2 GM/DL (32-36); Mean Corpuscular Volume 91.4 FL (87-102); Mean Platelet Volume 10.1 FL (9.6-12.0); Monocytes # 0.4 10*3/uL (0.11-0.8); Monocytes % 3.1 % (1.7-12.7); NRBC # 0.02 10*3/uL; Neutrophils % 86.3 % (38.7-73.9); Platelet Count 300 T/CUMM (130-400); Red Blood Count 3.04 MC/CUMM (3.8-5.5); Red Cell Distribution Width 14.3 % (9.3-17.3)
[2022-02-16 06:40] LABS: Calcium 9.1 MG/DL (8.5-10.1); Osmolality,Calculated 290.1 MOS/KG (273-304); Potassium 4.8 MMOL/L (3.5-5.1)
[2022-02-16] MEDS: allopurinoL 100 MG TABLET PO SCH (09:06)
[2022-02-16] MEDS: FLUoxetine 10 MG CAPSULE PO SCH (09:06)
[2022-02-16] MEDS: buPROPion 75 MG TABLET PO SCH ×2 (09:06→20:59)
[2022-02-16] MEDS: GABAPENTIN 300 MG CAPSULE PO SCH ×3 (09:06→20:59)
[2022-02-16] MEDS: ASCORBIC ACID 500 MG TABLET PO SCH ×2 (09:06→20:59)
[2022-02-16] MEDS: PANTOPRAZOLE 40 MG TABLET PO SCH (09:06)
[2022-02-16] MEDS: LEVOTHYROXINE 75 MCG TABLET PO SCH (09:06)
[2022-02-16] MEDS: FUROSEMIDE 40 MG TABLET PO SCH (09:06)
[2022-02-16] MEDS: OXYBUTYNIN XL 10 MG TABLET PO SCH (09:06)
[2022-02-16] MEDS: INSULIN LISPRO 100 UNIT/ML SUBCUT SCH ×4 (09:07→21:00)
[2022-02-16] MEDS: ENOXAPARIN 30 MG/0.3 ML SYRINGE SUBCUT SCH (11:59)
[2022-02-16] MEDS: FLUCONAZOLE 100 MG TABLET PO SCH (15:50)
[2022-02-17] MEDS: ALBUTEROL 2.5 MG/3 ML NEB RESP TX SCH ×4 (00:15→20:12)
[2022-02-17 05:03] LABS: Basophils % 0.2 % (0.0-0.8); Hematocrit 26.9 VOL% (35.7-47.0); Hemoglobin 8.3 GM/DL (12.0-16.0); Immature Granulocytes % 4.5 %; Immature Granulocytes Absolute 0.44 #; Lymphocytes # 0.9 10*3/uL (1.4-4.0); Lymphocytes % 9.5 % (21.3-54.2); Mean Corpuscular HGB Conc 30.9 GM/DL (32-36); Mean Corpuscular Volume 90.9 FL (87-102); Mean Platelet Volume 10.4 FL (9.6-12.0); Monocytes # 0.4 10*3/uL (0.11-0.8); Monocytes % 3.6 % (1.7-12.7); NRBC # 0.02 10*3/uL; Neutrophils % 82.2 % (38.7-73.9); Platelet Count 300 T/CUMM (130-400); Red Blood Count 2.96 MC/CUMM (3.8-5.5); Red Cell Distribution Width 14.3 % (9.3-17.3); White Blood Count 9.9 T/CUMM (4-12)
[2022-02-17 05:40] LABS: Calcium 8.5 MG/DL (8.5-10.1); Osmolality,Calculated 291.8 MOS/KG (273-304); Potassium 4.6 MMOL/L (3.5-5.1)
[2022-02-17] MEDS: PANTOPRAZOLE 40 MG TABLET PO SCH (08:52)
[2022-02-17] MEDS: INSULIN LISPRO 100 UNIT/ML SUBCUT SCH ×4 (08:52→22:07)
[2022-02-17] MEDS: FLUCONAZOLE 100 MG TABLET PO SCH (08:52)
[2022-02-17] MEDS: LEVOTHYROXINE 75 MCG TABLET PO SCH (08:52)
[2022-02-17] MEDS: FLUoxetine 10 MG CAPSULE PO SCH (08:53)
[2022-02-17] MEDS: OXYBUTYNIN XL 10 MG TABLET PO SCH (08:53)
[2022-02-17] MEDS: ASCORBIC ACID 500 MG TABLET PO SCH ×2 (08:53→20:55)
[2022-02-17] MEDS: buPROPion 75 MG TABLET PO SCH ×2 (08:53→20:55)
[2022-02-17] MEDS: FUROSEMIDE 40 MG TABLET PO SCH (08:53)
[2022-02-17] MEDS: allopurinoL 100 MG TABLET PO SCH (08:53)
[2022-02-17] MEDS: GABAPENTIN 300 MG CAPSULE PO SCH ×3 (08:53→20:55)
[2022-02-17] MEDS: methylPREDNISolone SOD SUC 40 MG/1 ML VIAL IV SCH (08:53)
[2022-02-17] MEDS: LINEZOLID 600 MG TABLET PO SCH ×2 (11:56→20:57)
[2022-02-17] MEDS: ENOXAPARIN 30 MG/0.3 ML SYRINGE SUBCUT SCH (11:56)
[2022-02-17] MEDS: LEVOFLOXACIN INJ 750 MG/150 ML PREMIX IV SCH (12:14)
[2022-02-17] MEDS: AZTREONAM 1,000 MG in SODIUM CHLORIDE 0.9% 100 ML IV SCH ×2 (14:24→20:55)
[2022-02-18] MEDS: ALBUTEROL 2.5 MG/3 ML NEB RESP TX SCH ×5 (01:32→19:52)
[2022-02-18] MEDS: AZTREONAM 1,000 MG in SODIUM CHLORIDE 0.9% 100 ML IV SCH ×3 (04:07→21:12)
[2022-02-18 06:19] LABS: Basophils % 0.4 % (0.0-0.8); Eosinophils # 0.1 10*3/uL (0.0-0.87); Eosinophils % 0.8 % (0.00-10.9); Hematocrit 30.2 VOL% (35.7-47.0); Hemoglobin 9.3 GM/DL (12.0-16.0); Immature Granulocytes % 6.3 %; Immature Granulocytes Absolute 0.66 #; Lymphocytes # 1.4 10*3/uL (1.4-4.0); Mean Corpuscular HGB Conc 30.8 GM/DL (32-36); Mean Corpuscular Volume 89.3 FL (87-102); Mean Platelet Volume 10.3 FL (9.6-12.0); Monocytes # 0.7 10*3/uL (0.11-0.8); Monocytes % 6.8 % (1.7-12.7); NRBC # 0.03 10*3/uL; Neutrophils % 72.7 % (38.7-73.9); Platelet Count 353 T/CUMM (130-400); Red Blood Count 3.38 MC/CUMM (3.8-5.5); Red Cell Distribution Width 14.2 % (9.3-17.3); White Blood Count 10.6 T/CUMM (4-12)
[2022-02-18 06:32] LABS: Calcium 8.9 MG/DL (8.5-10.1); Potassium 4.5 MMOL/L (3.5-5.1)
[2022-02-18 06:55] LABS: Band Neutrophils 3 % (0-10); Lymphocytes 10 % (20-55); Myelocytes 1 %; Platelet Estimate Normal; Total Cells Counted 100
[2022-02-18 06:56] LABS: Anisocytosis 1+
[2022-02-18] MEDS: INSULIN LISPRO 100 UNIT/ML SUBCUT SCH ×4 (08:47→22:14)
[2022-02-18] MEDS: OXYBUTYNIN XL 10 MG TABLET PO SCH (08:48)
[2022-02-18] MEDS: LINEZOLID 600 MG TABLET PO SCH ×2 (08:48→21:13)
[2022-02-18] MEDS: ASCORBIC ACID 500 MG TABLET PO SCH ×2 (08:48→21:13)
[2022-02-18] MEDS: PANTOPRAZOLE 40 MG TABLET PO SCH (08:48)
[2022-02-18] MEDS: buPROPion 75 MG TABLET PO SCH ×2 (08:48→21:13)
[2022-02-18] MEDS: LEVOTHYROXINE 75 MCG TABLET PO SCH (08:48)
[2022-02-18] MEDS: FLUCONAZOLE 100 MG TABLET PO SCH (08:48)
[2022-02-18] MEDS: allopurinoL 100 MG TABLET PO SCH (08:49)
[2022-02-18] MEDS: FUROSEMIDE 40 MG TABLET PO SCH (08:49)
[2022-02-18] MEDS: GABAPENTIN 300 MG CAPSULE PO SCH ×3 (08:49→21:13)
[2022-02-18] MEDS: FLUoxetine 10 MG CAPSULE PO SCH (08:49)
[2022-02-18] MEDS: ENOXAPARIN 30 MG/0.3 ML SYRINGE SUBCUT SCH (12:28)
[2022-02-19] MEDS: ALBUTEROL 2.5 MG/3 ML NEB RESP TX SCH ×3 (00:10→12:45)
[2022-02-19] MEDS: AZTREONAM 1,000 MG in SODIUM CHLORIDE 0.9% 100 ML IV SCH (04:13)
[2022-02-19 05:22] LABS: Basophils % 0.3 % (0.0-0.8); Hematocrit 26.6 VOL% (35.7-47.0); Hemoglobin 8.3 GM/DL (12.0-16.0); Immature Granulocytes % 5.9 %; Immature Granulocytes Absolute 0.53 #; Lymphocytes # 2.9 10*3/uL (1.4-4.0); Lymphocytes % 32.3 % (21.3-54.2); Mean Corpuscular HGB Conc 31.2 GM/DL (32-36); Mean Corpuscular Volume 90.2 FL (87-102); Mean Platelet Volume 10.2 FL (9.6-12.0); Monocytes # 0.9 10*3/uL (0.11-0.8); Monocytes % 9.7 % (1.7-12.7); NRBC # 0.02 10*3/uL; Neutrophils % 51.8 % (38.7-73.9); Platelet Count 283 T/CUMM (130-400); Red Blood Count 2.95 MC/CUMM (3.8-5.5); Red Cell Distribution Width 14.4 % (9.3-17.3); White Blood Count 9.1 T/CUMM (4-12)
[2022-02-19 05:44] LABS: Calcium 7.9 MG/DL (8.5-10.1); Osmolality,Calculated 294.5 MOS/KG (273-304); Potassium 4.5 MMOL/L (3.5-5.1)
[2022-02-19 05:58] LABS: Eosinophils 1 % (0-10); Lymphocytes 33 % (20-55); Platelet Estimate Adequate; Total Cells Counted 100
[2022-02-19] MEDS ORDERED: LEVOTHYROXINE 75 MCG TABLET PO SCH (06:30)
[2022-02-19] MEDS: INSULIN LISPRO 100 UNIT/ML SUBCUT SCH ×2 (07:40→14:07)
[2022-02-19] MEDS: FLUoxetine 10 MG CAPSULE PO SCH (09:34)
[2022-02-19] MEDS: buPROPion 75 MG TABLET PO SCH (09:34)
[2022-02-19] MEDS: ASCORBIC ACID 500 MG TABLET PO SCH (09:35)
[2022-02-19] MEDS: GABAPENTIN 300 MG CAPSULE PO SCH (09:35)
[2022-02-19] MEDS: LINEZOLID 600 MG TABLET PO SCH (09:35)
[2022-02-19] MEDS: allopurinoL 100 MG TABLET PO SCH (09:35)
[2022-02-19] MEDS: PANTOPRAZOLE 40 MG TABLET PO SCH (09:35)
[2022-02-19] MEDS: OXYBUTYNIN XL 10 MG TABLET PO SCH (09:35)
[2022-02-19] MEDS ORDERED: ERTAPENEM 1,000 MG in SODIUM CHLORIDE 0.9% 100 ML IV SCH (10:00)
[2022-02-19] MEDS: ENOXAPARIN 30 MG/0.3 ML SYRINGE SUBCUT SCH (14:07)
[2022-02-19] MEDS: FUROSEMIDE 40 MG TABLET PO SCH (14:07)
[2022-02-19 14:23] VITALS: BP 136/56
== END 2022-02-19 14:32 | disposition home health service (06) | DRG 194 ==
LOC: EDBD → EDUNIT# → N.ED 08:09 → N.EDINP 10:10 → SUATTDRO 10:10 → N.EDINP 11:37 → N.3E 11:49
PROVIDERS: ADMIT Internal Medicine; ATTEND Internal Medicine Geriatric Medicine